=== PATIENT | female | born 1935 | race Caucasian/White ===

== ENCOUNTER 2017-10-05 14:10 | Inpatient (IN) | payer MEDICARE, OTHER ==
[~2017-10-05 14:10] MED LIST: Dexamethasone 20 MG/5 ML VIAL ONE; Glycopyrrolate 0.2 MG/ML 5 ML SYRINGE ONE; Lidocaine 1% PF 5 ML VIAL ONE; Ondansetron HCl/PF 4 MG/2 ML Vial ONE; PHENYLEPHRINE-NS 100 MCG/ML 10 ML SYRINGE ONE; PROPOFOL 200 MG/20 ML VIAL ONE; ePHEDrine/0.9% NaCl/PF SYRINGE 50 mg/10 ml ONE
[2017-10-05] MEDS ORDERED: Clindamycin/D5W 600 mg/50 ml Premix Bag ONE ×2 (15:53→16:51)
[2017-10-05] MEDS ORDERED: Ondansetron ODT 4 MG TAB ONE (15:54)
[2017-10-05 16:22] LABS: Hemoglobin 12.8 g/dL (12.0-16.0); Mean Corpuscular Volume 84.6 fl (81.0-99.0); RBC Distribution Width 12.4 % (11.5-14.5); Red Blood Cell (RBC) Count 4.73 mill/uL (4.20-5.40); White Blood Cell (WBC) Count 16.4 thou/uL (4.8-10.8)
[2017-10-05 16:23] LABS: Mean Platelet Volume 10.3 fL (7.4-10.4); Platelet Count 85 thou/uL (130-400)
[2017-10-05 16:37] LABS: #Eosinphils 0.1 thou/uL (0.0-0.7); #Monocytes 1.5 thou/uL (0.11-0.59); #Neutrophils 13.1 thou/uL (1.40-6.50); %Basophils 0.3 % (0.0-1.0); %Eosinophils 0.4 % (0.0-10.0); %Lymphocytes 6.4 % (21.0-51.0); %Monocytes 9.7 % (0.0-10.0); %Neutrophils 83.3 % (42.0-75.0); ALT (SGPT) 30 U/L (8-55); AST (SGOT) 36 U/L (5-34); Albumin 3.8 g/dL (3.4-4.8); Alkaline Phosphatase 116 U/L (40-150); Anion Gap 17 mmol/L (10-20); BUN (Urea Nitrogen) Less than 4 mg/dL (9.8-20.1); Bilirubin, Total 1.1 mg/dL (0.2-1.2); Calc. Creatinine Clearance 0 mL/min (70-130); Calcium 8.9 mg/dL (7.8-10.44); Carbon Dioxide 17 mmol/L (23-31); Chloride 98 mmol/L (98-107); Estimated GFR-MDRD Greater than 90; Globulin 3.7 g/dL (2.4-3.5); Glucose 83 mg/dL (83-110); Potassium 3.8 mmol/L (3.5-5.1); Protein, Total 7.5 g/dL (6.0-8.3); Sodium 128 mmol/L (136-145)
[2017-10-05 16:41] LABS: Large Platelets SLIGHT; PLT Morphology Comment Appears Decreased; RBC Morphology Normal
[2017-10-05 16:51] LABS: MDiff Complete? YES
[2017-10-05] MEDS ORDERED: Hydrocortisone 1% Cream 30 GM TUBE ONE (17:17)
[2017-10-05] MEDS ORDERED: Chlorhexidine Gluconate 15 ML UDCUP SSP ONE (17:17)
[2017-10-05] MEDS ORDERED: Lidocaine 1% w/Epinephrine 1:100K 30 ML VIAL ONE (17:17)
[2017-10-05] MEDS ORDERED: Lidocaine 2% w/Epinephrine 1:200K 20 ML VIAL ONE (17:17)
[2017-10-05] MEDS ORDERED: Fentanyl 100 MCG/2 ML VIAL ONE (17:53)
[2017-10-05] MEDS ORDERED: Sodium Chloride 0.9% 10 ML ONE (18:17)
[2017-10-05] MEDS ORDERED: Meperidine HCl/PF 25 MG/ML VIAL SLOW IVP PRN (19:37)
[2017-10-05] MEDS ORDERED: Promethazine HCl 25 MG/ML VIAL SLOW IVP PRN (19:37)
[2017-10-05] MEDS ORDERED: Promethazine HCl 25 MG/ML VIAL IM PRN (19:37)
[2017-10-05] MEDS ORDERED: Ondansetron HCl/PF 4 MG/2 ML Vial IVP PRN (19:37)
[2017-10-05] MEDS ORDERED: Promethazine HCl 25 MG/ML VIAL ONE (19:49)
[2017-10-05] MEDS ORDERED: Labetalol HCl 100 MG/20 ML VIAL SLOW IVP PRN (20:12)
[2017-10-05] MEDS ORDERED: Acetaminophen 650 MG in Premix Bag 1 BAG IVPB PRN (21:05)
[2017-10-05] MEDS: Docusate 100 MG CAP PO SCH (21:10)
--- NOTE | 2017-10-05 21:18 | PDOC.EVN ---
Event Note - Event Note Event Note: pt seen and examined. She is unable to give me a hx due to pain post op. Family not at bedside. Physical exam done.
[2017-10-05] MEDS: Chlorhexidine Gluconate 15 ML UDCUP SSP SCH (21:46)
[2017-10-05] MEDS ORDERED: Dexamethasone 4 mg/ml Vial SLOW IVP SCH (22:00)
[2017-10-05 23:10] VITALS: BMI 23.8
[2017-10-05] MEDS: Clindamycin/D5W 600 MG in Premix Bag 1 BAG IVPB SCH (23:16)
[2017-10-05] MEDS ORDERED: Clindamycin/D5W 600 MG in Premix Bag 1 BAG IVPB SCH (23:59)
[2017-10-06] MEDS ORDERED: TACROLIMUS EA EYE SCH (00:15)
[2017-10-06] MEDS ORDERED: COSOPT EA EYE SCH (00:15)
[2017-10-06] MEDS ORDERED: AUTOLOGOUS SERUM EA EYE SCH (00:15)
[2017-10-06] MEDS ORDERED: DEXAMETHASONE 0.1% EA EYE SCH (00:15)
[2017-10-06] MEDS: Dexamethasone 4 mg/ml Vial SLOW IVP SCH ×3 (02:10→17:50)
[2017-10-06] MEDS: Clindamycin/D5W 600 MG in Premix Bag 1 BAG IVPB SCH ×4 (05:09→23:05)
[2017-10-06] MEDS: Levothyroxine Sodium 25 MCG TAB PO SCH (05:10)
[2017-10-06 05:30] LABS: Anion Gap 15 mmol/L (10-20); BUN (Urea Nitrogen) 4 mg/dL (9.8-20.1); Calc. Creatinine Clearance 72 mL/min (70-130); Calcium 8.4 mg/dL (7.8-10.44); Carbon Dioxide 17 mmol/L (23-31); Chloride 100 mmol/L (98-107); Estimated GFR-MDRD Greater than 90; Glucose 142 mg/dL (83-110); Potassium 3.1 mmol/L (3.5-5.1); Sodium 129 mmol/L (136-145)
[2017-10-06 05:51] LABS: #Lymphocytes 0.7 thou/uL (1.20-3.40); #Monocytes 0.3 thou/uL (0.11-0.59); #Neutrophils 16.2 thou/uL (1.40-6.50); %Monocytes 1.9 % (0.0-10.0); Hemoglobin 12.9 g/dL (12.0-16.0); Mean Corpuscular HGB CONC 33.6 g/dL (32.0-36.0); Mean Corpuscular Hemoglobin 27.8 pg (27.0-31.0); Mean Corpuscular Volume 82.8 fl (81.0-99.0); Mean Platelet Volume 10.4 fL (7.4-10.4); Platelet Count 135 thou/uL (130-400); RBC Distribution Width 12.4 % (11.5-14.5); Red Blood Cell (RBC) Count 4.65 mill/uL (4.20-5.40); White Blood Cell (WBC) Count 17.2 thou/uL (4.8-10.8)
[2017-10-06] MEDS: Magnesium Oxide 250 MG TAB PO SCH (09:10)
[2017-10-06] MEDS: Docusate 100 MG CAP PO SCH ×2 (09:10→20:56)
[2017-10-06] MEDS: Chlorhexidine Gluconate 15 ML UDCUP SSP SCH ×2 (09:12→20:55)
[2017-10-06] MEDS: COSOPT EA EYE SCH ×2 (09:13→20:57)
[2017-10-06] MEDS: TACROLIMUS EA EYE SCH ×4 (09:13→20:57)
[2017-10-06] MEDS: AUTOLOGOUS SERUM EA EYE SCH ×4 (09:13→23:04)
[2017-10-06] MEDS: DEXAMETHASONE 0.1% EA EYE SCH (09:13)
[2017-10-06] MEDS: Bupropion 150 MG XL TAB PO SCH (13:06)
[2017-10-06] MEDS: Amitriptyline HCl 25 MG TAB PO SCH (20:56)
[2017-10-06] MEDS: Simvastatin 20 MG TAB PO SCH (20:56)
[2017-10-06] MEDS: Zolpidem Tartrate 5 MG TAB PO SCH (23:04)
[2017-10-07] MEDS: Levothyroxine Sodium 25 MCG TAB PO SCH (05:48)
[2017-10-07] MEDS: Clindamycin/D5W 600 MG in Premix Bag 1 BAG IVPB SCH ×4 (05:49→23:15)
[2017-10-07] MEDS: Docusate 100 MG CAP PO SCH ×2 (08:28→20:24)
[2017-10-07] MEDS: TACROLIMUS EA EYE SCH ×4 (08:29→20:24)
[2017-10-07] MEDS: DEXAMETHASONE 0.1% EA EYE SCH (08:32)
[2017-10-07] MEDS: COSOPT EA EYE SCH ×2 (08:33→20:24)
[2017-10-07] MEDS: Acetaminophen 325 MG TAB PO PRN ×3 (08:36→23:20)
[2017-10-07] MEDS: Magnesium Oxide 250 MG TAB PO SCH (08:36)
[2017-10-07] MEDS: AUTOLOGOUS SERUM EA EYE SCH ×3 (08:56→23:14)
--- NOTE | 2017-10-07 10:10 | PDOC.PN ---
- Subjective Encounter Start Date: 10/06/17 Encounter Start Time: 11:30 Subjective: pt up in bed. was in the bathroom and had a fall - Objective Resuscitation Status: Resuscitation Status FULL:Full Resuscitation Vital Signs & Weight: Vital Signs (12 hours) Temp Pulse Resp BP Pulse Ox 10/07/17 08:02 97.8 F 64 16 148/70 H 96 10/07/17 08:00 97.8 F 64 16 96 Weight Weight 130 lb I&O: 10/06/17 10/07/17 10/08/17 06:59 06:59 06:59 Intake Total 300 1473 Balance 300 1473 Result Diagrams: 10/06/17 04:12 10/06/17 04:12 Phys Exam - Physical Examination pt not able to open her mouth Neck: no nodes, no JVD, supple, full ROM Respiratory: no wheezing, no rales, no rhonchi, wheezing present, clear to auscultation bilateral Cardiovascular: RRR, no significant murmur, no rub, gallop, irregular Gastrointestinal: soft, non-tender, no distention, positive bowel sounds Dx/Plan (1) Submandibular abscess Code(s): K12.2 - CELLULITIS AND ABSCESS OF MOUTH Status: Acute (2) Hypothyroid Code(s): E03.9 - HYPOTHYROIDISM, UNSPECIFIED Status: Acute (3) HTN (hypertension) Code(s): I10 - ESSENTIAL (PRIMARY) HYPERTENSION Status: Acute - Plan * . plan: will continue abx for now. will change to oral when pt goes home. pt lost her balance and fell. vital signs stable. Review of Systems - Review of Systems ENT: negative: Ear Pain, Ear Discharge, Nose Pain, Nose Discharge, Nose Congestion, Mouth Pain, Mouth Swelling, Throat Pain, Throat Swelling, Other Respiratory: negative: Cough, Dry, Shortness of Breath, Hemoptysis, SOB with Excertion, Pleuritic Pain, Sputum, Wheezing Cardiovascular: negative: chest pain, palpitations, orthopnea, paroxysmal nocturnal dyspnea, edema, light headedness, other Gastrointestinal: negative: Nausea, Vomiting, Abdominal Pain, Diarrhea, Constipation, Melena, Hematochezia, Other Genitourinary: negative: Dysuria, Frequency, Incontinence, Hematuria, Retention , Other - Medications/Allergies Allergies/Adverse Reactions: Allergies Allergy/AdvReac Type Severity Reaction Status Date / Time Penicillins Allergy Verified 10/05/17 20:12 Medications: Current Medications Acetaminophen (Tylenol) 650 mg PO Q4H PRN PRN Reason: Headache/Fever or Pain Last Admin: 10/07/17 14:01 Dose: 650 mg Amitriptyline HCl (Elavil) 25 mg PO QPM [facility] Last Admin: 10/06/17 20:56 Dose: 25 mg Aspirin (Aspirin Chewable) 81 mg PO DAILY [facility] Last Admin: 10/07/17 08:28 Dose: 81 mg Bupropion HCl (Wellbutrin Xl) 150 mg PO 1200 [facility] Last Admin: 10/07/17 11:52 Dose: 150 mg Chlorhexidine Gluconate (Chlorhexidine Gluconate) 15 ml SSP BID [facility] Last Admin: 10/07/17 11:52 Dose: 15 ml Docusate Sodium (Colace) 100 mg PO BID [facility] Last Admin: 10/07/17 08:28 Dose: 100 mg Clindamycin Phosphate/Dextrose (600 mg/ Device) 50 mls @ 100 mls/hr IVPB 0500, 1100,1700,2300 [facility] Last Admin: 10/07/17 16:43 Dose: 50 mls Labetalol HCl (Normodyne) 5 mg SLOW IVP Q4H PRN PRN Reason: SBP Greater Than 180 Levothyroxine Sodium (Synthroid) 25 mcg PO 0600 [facility] Last Admin: 10/07/17 05:48 Dose: 25 mcg Magnesium Oxide (Magnesium Oxide) 250 mg PO DAILY [facility] Last Admin: 10/07/17 08:36 Dose: 250 mg Pantoprazole Sodium (Protonix) 40 mg PO QAM [facility] Last Admin: 10/07/17 08:28 Dose: 40 mg Tacrolimus-Pf Aqueous Ophthalmic 0 .02% Susp 0 each EA EYE QID [facility] Last Admin: 10/07/17 16:43 Dose: 1 each Dexamethasone Pf (Ophthalmic 0.1%) 0 each EA EYE DAILY [facility] Last Admin: 10/07/17 08:32 Dose: 1 each Cosopt Pf ( Dorzlamide Hcl- Timolol Maleate 2%-0 .5%) 0 each EA EYE BID [facility] Last Admin: 10/07/17 08:33 Dose: 1 each Autologous Serum Drops 50% Ophthalmic Soln 0 each EA EYE TID [facility] Last Admin: 10/07/17 14:02 Dose: 1 each Simvastatin (Zocor) 20 mg PO QPM [facility] Last Admin: 10/06/17 20:56 Dose: 20 mg Sodium Chloride (Flush - Normal Saline) 10 ml IVF Q12HR [facility] Last Admin: 10/07/17 08:32 Dose: 10 ml Sodium Chloride (Flush - Normal Saline) 10 ml IVF PRN PRN PRN Reason: Saline Flush Tramadol HCl (Ultram) 50 mg PO Q6H PRN PRN Reason: Moderate to Severe Pain (6-10) Last Admin: 10/07/17 16:43 Dose: 50 mg Zolpidem Tartrate (Ambien) 5 mg PO HS [facility] Last Admin: 10/06/17 23:04 Dose: 5 mg
[2017-10-07] MEDS: Chlorhexidine Gluconate 15 ML UDCUP SSP SCH ×2 (11:52→20:24)
[2017-10-07] MEDS: Bupropion 150 MG XL TAB PO SCH (11:52)
[2017-10-07] MEDS ORDERED: traMADol HCl 50 MG TAB PO PRN (14:44)
--- NOTE | 2017-10-07 19:02 | PDOC.PN ---
- Subjective Encounter Start Date: 10/07/17 Encounter Start Time: 11:30 Subjective: pt up in bed no complains - Objective Resuscitation Status: Resuscitation Status FULL:Full Resuscitation Vital Signs & Weight: Vital Signs (12 hours) Temp Pulse Resp BP Pulse Ox 10/07/17 16:41 97.3 F L 73 16 117/69 96 10/07/17 12:24 97.7 F 66 16 134/78 96 10/07/17 08:02 97.8 F 64 16 148/70 H 96 10/07/17 08:00 97.8 F 64 16 96 Weight Weight 130 lb I&O: 10/06/17 10/07/17 10/08/17 06:59 06:59 06:59 Intake Total 300 1473 460 Balance 300 1473 460 Result Diagrams: 10/06/17 04:12 10/06/17 04:12 Phys Exam - Physical Examination HEENT: PERRLA, moist MMs, sclera anicteric, TM's clear, oral pharynx no lesions , 2+ tonsils Neck: no nodes, no JVD, supple, full ROM Respiratory: no wheezing, no rales, no rhonchi, wheezing present, clear to auscultation bilateral Cardiovascular: RRR, no significant murmur, no rub, gallop, irregular Gastrointestinal: soft, non-tender, no distention, positive bowel sounds Dx/Plan (1) Submandibular abscess Code(s): K12.2 - CELLULITIS AND ABSCESS OF MOUTH Status: Acute (2) Hypothyroid Code(s): E03.9 - HYPOTHYROIDISM, UNSPECIFIED Status: Acute (3) HTN (hypertension) Code(s): I10 - ESSENTIAL (PRIMARY) HYPERTENSION Status: Acute - Plan * . pt up in bed feels well pt eating and tolerating po well continue iv abx Review of Systems - Review of Systems ENT: negative: Ear Pain, Ear Discharge, Nose Pain, Nose Discharge, Nose Congestion, Mouth Pain, Mouth Swelling, Throat Pain, Throat Swelling, Other Respiratory: negative: Cough, Dry, Shortness of Breath, Hemoptysis, SOB with Excertion, Pleuritic Pain, Sputum, Wheezing Cardiovascular: negative: chest pain, palpitations, orthopnea, paroxysmal nocturnal dyspnea, edema, light headedness, other Gastrointestinal: negative: Nausea, Vomiting, Abdominal Pain, Diarrhea, Constipation, Melena, Hematochezia, Other - Medications/Allergies Allergies/Adverse Reactions: Allergies Allergy/AdvReac Type Severity Reaction Status Date / Time Penicillins Allergy Verified 10/05/17 20:12 Medications: Current Medications Acetaminophen (Tylenol) 650 mg PO Q4H PRN PRN Reason: Headache/Fever or Pain Last Admin: 10/07/17 14:01 Dose: 650 mg Amitriptyline HCl (Elavil) 25 mg PO QPM [facility] Last Admin: 10/06/17 20:56 Dose: 25 mg Aspirin (Aspirin Chewable) 81 mg PO DAILY [facility] Last Admin: 10/07/17 08:28 Dose: 81 mg Bupropion HCl (Wellbutrin Xl) 150 mg PO 1200 [facility] Last Admin: 10/07/17 11:52 Dose: 150 mg Chlorhexidine Gluconate (Chlorhexidine Gluconate) 15 ml SSP BID [facility] Last Admin: 10/07/17 11:52 Dose: 15 ml Docusate Sodium (Colace) 100 mg PO BID [facility] Last Admin: 10/07/17 08:28 Dose: 100 mg Clindamycin Phosphate/Dextrose (600 mg/ Device) 50 mls @ 100 mls/hr IVPB 0500, 1100,1700,2300 [facility] Last Admin: 10/07/17 16:43 Dose: 50 mls Labetalol HCl (Normodyne) 5 mg SLOW IVP Q4H PRN PRN Reason: SBP Greater Than 180 Levothyroxine Sodium (Synthroid) 25 mcg PO 0600 [facility] Last Admin: 10/07/17 05:48 Dose: 25 mcg Magnesium Oxide (Magnesium Oxide) 250 mg PO DAILY [facility] Last Admin: 10/07/17 08:36 Dose: 250 mg Pantoprazole Sodium (Protonix) 40 mg PO QAM [facility] Last Admin: 10/07/17 08:28 Dose: 40 mg Tacrolimus-Pf Aqueous Ophthalmic 0 .02% Susp 0 each EA EYE QID [facility] Last Admin: 10/07/17 16:43 Dose: 1 each Dexamethasone Pf (Ophthalmic 0.1%) 0 each EA EYE DAILY [facility] Last Admin: 10/07/17 08:32 Dose: 1 each Cosopt Pf ( Dorzlamide Hcl- Timolol Maleate 2%-0 .5%) 0 each EA EYE BID [facility] Last Admin: 10/07/17 08:33 Dose: 1 each Autologous Serum Drops 50% Ophthalmic Soln 0 each EA EYE TID [facility] Last Admin: 10/07/17 14:02 Dose: 1 each Simvastatin (Zocor) 20 mg PO QPM [facility] Last Admin: 10/06/17 20:56 Dose: 20 mg Sodium Chloride (Flush - Normal Saline) 10 ml IVF Q12HR [facility] Last Admin: 10/07/17 08:32 Dose: 10 ml Sodium Chloride (Flush - Normal Saline) 10 ml IVF PRN PRN PRN Reason: Saline Flush Tramadol HCl (Ultram) 50 mg PO Q6H PRN PRN Reason: Moderate to Severe Pain (6-10) Last Admin: 10/07/17 16:43 Dose: 50 mg Zolpidem Tartrate (Ambien) 5 mg PO HS [facility] Last Admin: 10/06/17 23:04 Dose: 5 mg
[2017-10-07] MEDS: Amitriptyline HCl 25 MG TAB PO SCH (20:23)
[2017-10-07] MEDS: Simvastatin 20 MG TAB PO SCH (20:24)
[2017-10-07] MEDS: traMADol HCl 50 MG TAB PO PRN (21:45)
[2017-10-07] MEDS ORDERED: Ketorolac Tromethamine 10 MG TAB PO SCH (21:45)
[2017-10-07] MEDS: Zolpidem Tartrate 5 MG TAB PO SCH (23:18)
[2017-10-08] MEDS: traMADol HCl 50 MG TAB PO PRN ×4 (02:13→22:07)
[2017-10-08] MEDS: Levothyroxine Sodium 25 MCG TAB PO SCH (05:24)
[2017-10-08] MEDS: Clindamycin/D5W 600 MG in Premix Bag 1 BAG IVPB SCH ×4 (05:25→23:05)
[2017-10-08] MEDS: AUTOLOGOUS SERUM EA EYE SCH ×3 (08:06→23:04)
[2017-10-08] MEDS: DEXAMETHASONE 0.1% EA EYE SCH (08:07)
[2017-10-08] MEDS: COSOPT EA EYE SCH ×2 (08:07→21:29)
[2017-10-08] MEDS: TACROLIMUS EA EYE SCH ×4 (08:07→21:29)
[2017-10-08] MEDS: Docusate 100 MG CAP PO SCH ×2 (08:08→22:07)
[2017-10-08] MEDS: Magnesium Oxide 250 MG TAB PO SCH (08:08)
[2017-10-08] MEDS: Chlorhexidine Gluconate 15 ML UDCUP SSP SCH ×2 (08:08→22:08)
[2017-10-08] MEDS: Acetaminophen 325 MG TAB PO PRN (11:12)
[2017-10-08] MEDS ORDERED: Ketorolac Tromethamine 30 MG/ML VIAL IVP SCH (12:15)
[2017-10-08 12:25] LABS: #Eosinphils 0.2 thou/uL (0.0-0.7); #Lymphocytes 1.6 thou/uL (1.20-3.40); #Neutrophils 7.7 thou/uL (1.40-6.50); %Basophils 0.4 % (0.0-1.0); %Lymphocytes 14.9 % (21.0-51.0); %Monocytes 9.3 % (0.0-10.0); %Neutrophils 73.4 % (42.0-75.0); Hemoglobin 13.5 g/dL (12.0-16.0); Mean Corpuscular HGB CONC 32.9 g/dL (32.0-36.0); Mean Corpuscular Hemoglobin 27.3 pg (27.0-31.0); Mean Platelet Volume 10.2 fL (7.4-10.4); Platelet Count 182 thou/uL (130-400); RBC Distribution Width 12.6 % (11.5-14.5); Red Blood Cell (RBC) Count 4.93 mill/uL (4.20-5.40); White Blood Cell (WBC) Count 10.4 thou/uL (4.8-10.8)
[2017-10-08] MEDS: Bupropion 150 MG XL TAB PO SCH (12:29)
[2017-10-08 12:44] LABS: Anion Gap 13 mmol/L (10-20); BUN (Urea Nitrogen) 8 mg/dL (9.8-20.1); Calc. Creatinine Clearance 68 mL/min (70-130); Calcium 8.2 mg/dL (7.8-10.44); Carbon Dioxide 22 mmol/L (23-31); Chloride 98 mmol/L (98-107); Estimated GFR-MDRD Greater than 90; Glucose 87 mg/dL (83-110); Potassium 3.1 mmol/L (3.5-5.1); Sodium 130 mmol/L (136-145)
[2017-10-08] MEDS: Ketorolac Tromethamine 30 MG/ML VIAL IVP SCH ×2 (17:53→23:04)
[2017-10-08] MEDS: Potassium Chloride 20 MEQ TAB PO SCH (17:55)
--- NOTE | 2017-10-08 20:06 | PDOC.PN ---
- Subjective Encounter Start Date: 10/08/17 Encounter Start Time: 11:30 Subjective: pt up in bed complains of pain to her left jaw - Objective Resuscitation Status: Resuscitation Status FULL:Full Resuscitation Vital Signs & Weight: Weight Weight 130 lb I&O: 10/07/1718 10/09/17 06:59 06:59 06:59 Intake Total 1473 1131 430 Balance 1473 1131 430 Result Diagrams: 10/08/17 12:17 10/08/17 12:17 Phys Exam - Physical Examination dressing intact Neck: no nodes, no JVD, supple, full ROM Respiratory: no wheezing, no rales, no rhonchi, wheezing present, clear to auscultation bilateral Cardiovascular: RRR, no significant murmur, no rub, gallop, irregular Gastrointestinal: soft, non-tender, no distention, positive bowel sounds Musculoskeletal: no edema, pulses present, edema present Dx/Plan (1) Submandibular abscess Code(s): K12.2 - CELLULITIS AND ABSCESS OF MOUTH Status: Acute (2) Hypothyroid Code(s): E03.9 - HYPOTHYROIDISM, UNSPECIFIED Status: Acute (3) HTN (hypertension) Code(s): I10 - ESSENTIAL (PRIMARY) HYPERTENSION Status: Acute (4) Hypokalemia Code(s): E87.6 - HYPOKALEMIA Status: Acute - Plan * will change abx to po * possible discharge in am if ok with surgeon * will replace K Review of Systems - Review of Systems ENT: Mouth Pain Respiratory: negative: Cough, Dry, Shortness of Breath, Hemoptysis, SOB with Excertion, Pleuritic Pain, Sputum, Wheezing Cardiovascular: negative: chest pain, palpitations, orthopnea, paroxysmal nocturnal dyspnea, edema, light headedness, other Gastrointestinal: negative: Nausea, Vomiting, Abdominal Pain, Diarrhea, Constipation, Melena, Hematochezia, Other - Medications/Allergies Allergies/Adverse Reactions: Allergies Allergy/AdvReac Type Severity Reaction Status Date / Time Penicillins Allergy Verified 10/05/17 20:12 Medications: Current Medications Acetaminophen (Tylenol) 650 mg PO Q4H PRN PRN Reason: Headache/Fever or Pain Last Admin: 10/08/17 11:12 Dose: 650 mg Amitriptyline HCl (Elavil) 25 mg PO QPM [facility] Last Admin: 10/07/17 20:23 Dose: 25 mg Aspirin (Aspirin Chewable) 81 mg PO DAILY [facility] Last Admin: 10/08/17 08:08 Dose: 81 mg Bupropion HCl (Wellbutrin Xl) 150 mg PO 1200 [facility] Last Admin: 10/08/17 12:29 Dose: 150 mg Chlorhexidine Gluconate (Chlorhexidine Gluconate) 15 ml SSP BID [facility] Last Admin: 10/08/17 08:08 Dose: 15 ml Docusate Sodium (Colace) 100 mg PO BID [facility] Last Admin: 10/08/17 08:08 Dose: 100 mg Clindamycin Phosphate/Dextrose (600 mg/ Device) 50 mls @ 100 mls/hr IVPB 0500, 1100,1700,2300 [facility] Last Admin: 10/08/17 17:55 Dose: 50 mls Ketorolac Tromethamine (Toradol) 15 mg IVP Q6HR [facility] Stop: 10/13/17 18:01 Last Admin: 10/08/17 17:53 Dose: 15 mg Labetalol HCl (Normodyne) 5 mg SLOW IVP Q4H PRN PRN Reason: SBP Greater Than 180 Levothyroxine Sodium (Synthroid) 25 mcg PO 0600 [facility] Last Admin: 10/08/17 05:24 Dose: 25 mcg Magnesium Oxide (Magnesium Oxide) 250 mg PO DAILY [facility] Last Admin: 10/08/17 08:08 Dose: 250 mg Pantoprazole Sodium (Protonix) 40 mg PO QAM [facility] Last Admin: 10/08/17 08:08 Dose: 40 mg Tacrolimus-Pf Aqueous Ophthalmic 0 .02% Susp 0 each EA EYE QID [facility] Last Admin: 10/08/17 17:54 Dose: 1 each Dexamethasone Pf (Ophthalmic 0.1%) 0 each EA EYE DAILY [facility] Last Admin: 10/08/17 08:07 Dose: 1 each Cosopt Pf ( Dorzlamide Hcl- Timolol Maleate 2%-0 .5%) 0 each EA EYE BID [facility] Last Admin: 10/08/17 08:07 Dose: 1 each Autologous Serum Drops 50% Ophthalmic Soln 0 each EA EYE TID [facility] Last Admin: 10/08/17 16:16 Dose: 1 each Potassium Chloride (K-Dur) 40 meq PO BID-WM [facility] Last Admin: 10/08/17 17:55 Dose: 40 meq Simvastatin (Zocor) 20 mg PO QPM [facility] Last Admin: 10/07/17 20:24 Dose: 20 mg Sodium Chloride (Flush - Normal Saline) 10 ml IVF Q12HR [facility] Last Admin: 10/08/17 08:08 Dose: 10 ml Sodium Chloride (Flush - Normal Saline) 10 ml IVF PRN PRN PRN Reason: Saline Flush Tramadol HCl (Ultram) 50 mg PO Q4H PRN PRN Reason: Moderate to Severe Pain (6-10) Last Admin: 10/08/17 11:58 Dose: 50 mg Zolpidem Tartrate (Ambien) 5 mg PO HS [facility] Last Admin: 10/07/17 23:18 Dose: 5 mg
[2017-10-08] MEDS ORDERED: Ondansetron HCl/PF 4 MG/2 ML Vial IVP PRN (20:34)
--- NOTE | 2017-10-08 20:37 | PDOC.EVN ---
Event Note - Event Note Event Note: Called by RN for patient with n/v and no bm for a few days despite colace bid and a dose of lactulose. RN reports pt has taken zofran in the past for n/v - will order this. Will hold on other meds for constipation now - pt is requesting a suppository - wait until n/v controlled. No further needs at end of call.
[2017-10-08] MEDS ORDERED: Clindamycin 150 MG CAP PO SCH (21:00)
[2017-10-08] MEDS ORDERED: Clindamycin/D5W 600 MG in Premix Bag 1 BAG IVPB SCH (22:00)
[2017-10-08] MEDS: Amitriptyline HCl 25 MG TAB PO SCH (22:08)
[2017-10-08] MEDS: Simvastatin 20 MG TAB PO SCH (22:08)
--- NOTE | 2017-10-08 22:35 | HP ---
DATE OF ADMISSION: 10/05/2017 CHIEF COMPLAINT: Left mandible swelling. HISTORY OF PRESENT ILLNESS: The patient is a very pleasant 81-year-old female with a past medical hi story of hyperlipidemia, high cholesterol who presented to the hospital with complaints of left subma ndibular pain. The patient stated that she noticed that 3 days prior to her admission some pain and swelling around her left lower mouth. She stated that she did go to her ENT who stated that to follo w up as an outpatient to be for her to be removed. However, the patient stated that the day of her a dmission, her swelling got severe to the point that she had significant pain and also had fever and w hen she called her surgeon who recommended to come into the ER for further evaluation. The patient a lso has some difficulty swallowing. The patient was taken to surgery and had an I&D and also removal of the left lower tooth. PAST MEDICAL HISTORY: History of hyperlipidemia, hypertension and hypothyroidism. PAST SURGICAL HISTORY: She has no surgical history. SOCIAL HISTORY: She denies any alcohol, drug use or smoking history. REVIEW OF SYSTEMS: Except for the pain in her left lower jaw line, she denies any other review of an y other issues. ALLERGIES: PENICILLIN. CURRENT MEDICATIONS: She takes amitriptyline 25 mg daily, aspirin 81 mg daily, fluticasone 50 mcg na diana, levothyroxine 25 mcg daily, magnesium 250 mg daily, simvastatin 20 mg daily, Ambien 10 mg daily, and Nexium 20 mg daily. PHYSICAL EXAMINATION: VITAL SIGNS: Pulse of 99, temperature of 98.7, 18, 100% on room air, 114/84. GENERAL: She is awake, alert, oriented x3. She is in apparent distress. She does have significant swelling of her left jawline and also is not able to open her mouth completely. She is post-surgical . CARDIOVASCULAR SYSTEM: S1, S2 present. No murmurs, rubs or gallops. LUNGS: Clear to auscultation, rhonchi or wheezes noted. ABDOMEN: Soft, nontender. Bowel sounds are present x2. Hepatomegaly or splenomegaly noted. EXTREMITIES: Lower extremity, no edema. Pedal pulses present x2. SKIN: Intact. No cuts, bruises noted. NEUROLOGIC: No focal neurological abnormalities noted. LABORATORY DATA: Are the following: WBCs of 16.4, hemoglobin of 12.8, hematocrit of 40.0, platelets of 85. Chemistry: Sodium 128, potassium 3.8, BUN of 4, creatinine 0.56. ASSESSMENT AND PLAN: The patient is a very pleasant 81-year-old female who presents to the hospital with complaints of worsening left mandibular pain. 1. Left mandibular most likely an abscess. Patient undergoing I&D by Surgery. We will start the pa tient on some antibiotics and will await cultures. 2. Hypertension. We will continue patient's home medications. 3. Hypothyroidism. We will continue the patient's home medication. 4. Leukocytosis, most likely secondary to her underlying infection. 5. Hyponatremia. This is most likely secondary either possibly due to pain or maybe to underlying d epression medication. 6. Deep venous thrombosis prophylaxis. We will put the patient on subcu heparin versus Lovenox.
[2017-10-08] MEDS: Zolpidem Tartrate 5 MG TAB PO SCH (23:04)
[2017-10-09] MEDS: Levothyroxine Sodium 25 MCG TAB PO SCH (05:39)
[2017-10-09] MEDS: Ketorolac Tromethamine 30 MG/ML VIAL IVP SCH ×2 (05:39→12:43)
[2017-10-09] MEDS: Clindamycin/D5W 600 MG in Premix Bag 1 BAG IVPB SCH ×2 (05:40→12:44)
[2017-10-09] MEDS: traMADol HCl 50 MG TAB PO PRN ×2 (05:41→13:14)
--- NOTE | 2017-10-09 08:11 | PQF ---
CLINICAL DOCUMENTATION IMPROVEMENT CLARIFICATION FORM: ICD-10 Updated PLEASE DO AN ADDENDUM TO THE PROGRESS NOTE WITH ANY DOCUMENTATION UPDATES OR ADDITIONS AND CARRY THROUGH TO DC SUMMARY. THANK YOU. DATE: 10/09 ATTN: DR. Blank GRIFFITH Please exercise your independent, professional judgment in responding to the clarification form. Clinical indicators are provided on the bottom of this form for your review. Please check appropriate box(es): [ ] Sepsis due to: (Pna, UTI, gangrenous gall bladder, etc.) [ x ] Localized infection without sepsis [ ] Other diagnosis [ ] Unable to determine For continuity of documentation, please document condition throughout progress notes and discharge summary. Thank You. CLINICAL INDICATORS - SIGNS / SYMPTOMS / LABS ER PRESENTATION 10/05: WBC: 16.4 RR: 24 HR: 108 TEMP ON ADMIT: 100.2 RISK FACTOR: L SUBMANDIBULAR ABSCESS REQUIRING I&D TREATMENTS: IV ANTIBIOTIC (CLINDAMYCIN 10/05 - PRESENT) I&D (10/05) THANK YOU! Christi (This form is maintained as a part of the permanent medical record) 2014 [employer]. All Rights Reserved Christi Agustin RN, BSN [email or web address] Office: [phone] [facility]
[2017-10-09] MEDS: Potassium Chloride 20 MEQ TAB PO SCH (08:21)
[2017-10-09] MEDS: Docusate 100 MG CAP PO SCH (08:22)
[2017-10-09] MEDS: Magnesium Oxide 250 MG TAB PO SCH (08:22)
[2017-10-09] MEDS: Chlorhexidine Gluconate 15 ML UDCUP SSP SCH (08:22)
[2017-10-09] MEDS: AUTOLOGOUS SERUM EA EYE SCH (08:24)
[2017-10-09] MEDS: TACROLIMUS EA EYE SCH ×2 (08:24→12:49)
[2017-10-09] MEDS: DEXAMETHASONE 0.1% EA EYE SCH (08:25)
[2017-10-09] MEDS: COSOPT EA EYE SCH (08:25)
[2017-10-09 08:28] VITALS: BP 147/86; TEMP 97.5
[2017-10-09] MEDS: Acetaminophen 325 MG TAB PO PRN (08:36)
[2017-10-09] MEDS ORDERED: Saccharomyces boulardii 250 MG CAP PO SCH (09:00)
[2017-10-09] MEDS: Bupropion 150 MG XL TAB PO SCH (12:43)
--- NOTE | 2017-10-10 04:40 | DIS ---
DATE OF ADMISSION: 10/05/2017 DATE OF DISCHARGE: 10/09/2017 DISCHARGE DIAGNOSES: 1. Submandibular abscess, status post incision and drainage. 2. Hypothyroidism. 3. Hypertension. 4. Hypokalemia. HOSPITAL COURSE: Patient is a very pleasant 81-year-old female who presented to the hospital for sub mandibular abscess. She underwent an I&D by [facility]. Patient was put on clindamycin. Patient continue d to improve throughout the hospital stay. She was able to tolerate oral food. Her cultures indicat ed many Gram-positive cocci in pairs and chains and clusters. Patient was discharged home with clind amycin. She will follow up with her surgeon as an outpatient. PHYSICAL EXAMINATION: VITAL SIGNS: On discharge, her temperature was 97.5, 88 pulse, heart rate 18, 94% on room air, 147/8 6. GENERAL: She was awake, alert, oriented x3, does not appear in distress. CARDIOVASCULAR: S1, S2 present. No murmurs, rubs, or gallop. ABDOMEN: Soft, nontender. Bowel sounds are present x2. DISCHARGE MEDICATIONS: Chlorhexidine 15 mL b.i.d., clindamycin 300 q.6 hours, Colace 100 mg b.i.d., Zofran 4 mg q.6 hours p.r.n., Florastor 250 mg daily, tramadol 50 mg q.4 hours p.r.n., bupropion 150 mg daily, amitriptyline 25 mg q.p.m., aspirin 81 mg daily, magnesium 250 daily, simvastatin 20 mg q.p .m., Ambien 5 mg at bedtime, Nexium 1 tab q.a.m., levothyroxine 25 mcg daily. Patient will follow up with primary care doctor and with her surgeon.
--- NOTE | 2017-10-18 13:44 | OP ---
DATE OF PROCEDURE: 10/05/2017 PREOPERATIVE DIAGNOSES: 1. Left submandibular space abscess. 2. Necrotic tooth #18. POSTOPERATIVE DIAGNOSES: 1. Left submandibular space abscess secondary to infected tooth #18. 2. Necrotic tooth #18. PROCEDURES PERFORMED: 1. Transcervical and transoral incision and drainage of left submandibular space abscess. 2. Surgical removal of tooth #18. INDICATIONS: This is an 81-year-old female who was originally at an outside hospital with left neck swelling and fluid collection. We were consulted and requested patient needed to be [facility] or transferred to our office for evaluation. The patient was subsequently kept in the hospital for a couple of days prior to being discharged to our office. On evaluation in our offi ce, the patient was noted to have a significant left submandibular swelling and cellulitis with signi ficant discomfort. The decision was made to place the patient back in the hospital for a CT scan and surgical intervention of the left submandibular space abscess and associated tooth. The patient is brought to the operating room at this time for that treatment. SURGEON: Lj Sandoval DDS, M.D. DESCRIPTION OF OPERATION: The patient was identified in preoperative holding, and all questions were answered. The patient was then transferred to the operating room, transferred to the operating room table in supine position. The patient was then intubated via an oral intubation procedure by the An esthesia Service and a general anesthetic was induced. A surgical timeout was performed. The patien t's face and neck were prepped and draped in a sterile manner. The oral cavity was then prepped with Peridex oral rinse and a toothbrush. A throat pack was then pl aced. Attention was then turned intraorally and local anesthetic was delivered to the left mandible. Tooth #18 was then treated. Elevators and forceps were used with a subsequent fracture of the toot h. A 15 blade was then used to make an incision and a periosteal elevator was used to raise a full t hickness mucoperiosteal flap facially. The tooth was sectioned and ostectomy was performed around to [facility]. The roots were then elevated out individually. There was purulence obtained from the apical as pect of the socket of tooth #18 at this time. The socket was curetted clean and attention was then t urned towards drainage of the remaining aspects of the submandibular abscess. A lingual full thickne ss mucosal periosteal flap was developed intraorally from approximately tooth #21 region back to the tooth #18 region. This subperiosteal dissection continued inferiorly towards the inferior border of the mandible and as the submandibular space was encountered a large amount of purulence was obtained and a culture swab was taken of that purulence at this time. The submandibular space was opened up f urther and more purulence was obtained. At this time the wound was irrigated and packed off and atte ntion was turned towards the left neck. The inferior border of the mandible was marked and an area a pproximately 2-2.5 cm inferior to the mandible was marked for the proposed incision site. Local anes thetic was delivered to this area with a new needle and a 15 blade was then used to make approximatel y 2.5 cm skin incision in the left submandibular neck region. This incision was deepened using Bovie cautery and hemostasis was obtained. The platysma muscle was reached and this platysma was carefull y divided using a combination of blunt and sharp dissection. After the platysma was divided, Christina h emostats were used to begin a blunt dissection superiorly towards the inferior border of the mandible in the submandibular space. This dissection continued until the submandibular space and the inferio r border were reached and at this time entry into the abscess cavity was completed and further purule nce was obtained through this submandibular location. The hemostats were used along with finger diss ection to open up this passageway to the submandibular space through the cervical region. This disse ction continued from both intraoral and extraoral routes to ensure that the entire abscess cavity was decompressed and opened up. Small amount of dissection was continued out onto the buccal aspect of the mandible to ensure that there was no purulence underneath the masseter muscle region. After a co mplete opening of the abscess, the abscess was irrigated copiously with bacitracin infused saline and then a quarter inch Anil doubled over on itself was placed into the submandibular space both from the cervical incision and from the intraoral lingual incision. These drains were secured in place w ith a nylon drain stitch externally and a silk drain stitch intraorally. The remainder of the intrao ral wounds were closed loosely with 4-0 chromic gut suture in an interrupted fashion. All wounds wer e irrigated once more and the oral cavity was suctioned free of debris and the throat pack was remove d. An orogastric tube was placed, suctioned and removed and a Kerlix gauze pressure pack with an ext raoral tail was placed over the left posterior intraoral wounds and the patient was then turned over to the Anesthesia Service for emergence and extubation which ensued without complication. URINE OUTPUT: Not measured. INTRAVENOUS FLUIDS: Please see anesthetic record for full details. ESTIMATED BLOOD LOSS: Blood loss 15 mL. DRAINS: Quarter inch Anil to the left submandibular space through both the left neck and left int raoral wounds. IMPLANTS: None. COMPLICATIONS: None. FINDINGS: Large foul purulence from left submandibular space with immediate decompression of the lar ge left submandibular swelling on drainage of the abscess. SPECIMENS: Purulence from the left submandibular space. DISPOSITION: The patient tolerated the procedure well. She was transferred to the recovery room in good condition.
--- NOTE | 2017-10-21 13:00 | PRG ---
DATE OF SERVICE: 10/21/2017 at 11:00 a.m. SUBJECTIVE: No acute 24 hour events. The patient is postoperative day #1 status post repeat incisio n and drainage of left submandibular abscess, whereupon drainage a large amount of purulent fluid was drained in area and wound cleaned thoroughly. Two drains were placed yesterday by Dr. Sandoval. Th e patient's pain is well controlled. She is voiding, ambulating, tolerating p.o. No complaints of d ysphagia or difficulty breathing. OBJECTIVE: VITAL SIGNS: Patient's vital signs have been stable. She has been afebrile over the last 24 hours. HEENT: Her pupils are equal, round, and reactive to light and accommodation. Her oral opening is go od. Her swelling is slightly decreased since yesterday and soft, but still quite tender to palpation around the left submandibular area. There are two drains in the left submandibular area going throu gh and through to the oral cavity, oropharynx is clear. Floor of mouth is soft and supple. There is no uvular deviation. Her dressing is soaked with quite a bit of seropurulent fluid. LABORATORY DATA: Her white count is 10. There is no left shift. ASSESSMENT AND PLAN: Postoperative day #1 status post repeat drainage of left submandibular abscess. The patient appears to be improving. We will continue antibiotics per primary team. Previous cult ures grew out strep anginosus. We will continue to follow culture and sensitivities. The patient is okay for dental soft diet and would like a dressing changed 3 times a day. We will follow up in 24 hours for possible drain removal.
== END 2017-10-09 13:28 | disposition home or self-care (01) | DRG 137 ==
LOC: ERS 14:10 → T4-B 16:28 → ERS 17:23
PROVIDERS: ADMIT Internal Medicine; ATTEND Internal Medicine
PROC: 0W950ZZ Drainage of Lower Jaw, Open Approach (ICD-10-PCS; principal; 2017-10-05)
PROC: 0W930ZZ Drainage of Oral Cavity and Throat, Open Approach (ICD-10-PCS; 2017-10-05)
PROC: 0CDXXZ0 Extraction of Lower Tooth, Single, External Approach (ICD-10-PCS; 2017-10-05)
DX: K12.2 Cellulitis and abscess of mouth (principal); E87.1 Hypo-osmolality and hyponatremia; I10 Essential (primary) hypertension; E03.9 Hypothyroidism, unspecified; E87.6 Hypokalemia; F32.9 Major depressive disorder, single episode, unspecified; E78.5 Hyperlipidemia, unspecified; B96.89 Other specified bacterial agents as the cause of diseases classified elsewhere; Z88.0 Allergy status to penicillin; Z79.82 Long term (current) use of aspirin; Z79.899 Other long term (current) drug therapy
CPT/HCPCS: 36415; 80048; 80053; 83605; 85025; 87040; 87070; 87076; 87205; 93005; 96361; 96365; 96375; A4216; J1100; J1885; J2001; J2270; J2405; J2550; J2704; J3010; J3490; Q0162

== ENCOUNTER 2017-10-19 14:09 | Outpatient (CLI) | payer MEDICARE, OTHER ==
[~2017-10-19 14:09] MED LIST changes: -Dexamethasone 20 MG/5 ML VIAL ONE; -Glycopyrrolate 0.2 MG/ML 5 ML SYRINGE ONE; +Iopamidol 370 76% 100 ML VIAL ONE; -Lidocaine 1% PF 5 ML VIAL ONE; -Ondansetron HCl/PF 4 MG/2 ML Vial ONE; -PHENYLEPHRINE-NS 100 MCG/ML 10 ML SYRINGE ONE; -PROPOFOL 200 MG/20 ML VIAL ONE; -ePHEDrine/0.9% NaCl/PF SYRINGE 50 mg/10 ml ONE
--- NOTE | 2017-10-19 15:23 | CT ---
NECK CT WITH IV CONTRAST: DATE: 10/19/17. COMPARISON: None. HISTORY: Left submandibular swelling for 2 weeks. TECHNIQUE: Serial axial CT imaging at 2.5 mm intervals from the skull base through the lung apices with IV contr ast. Coronal and sagittal reformatted imaging obtained. FINDINGS: Imaged brain parenchyma grossly unremarkable. The retroantral fat and parapharyngeal fat appears grossly unremarkable bilaterally. Right parotid a nd submandibular glands are unremarkable. There is a lucency involving the posterior left mandibular tooth socket, where there is a tooth which is absent when compared to a CT angiogram of the head performed 07/14/16. The patient reports recent dental surgery, which suggests that perhaps the posterior-most left mandibular tooth was extracted r ecently. In this region along the medial cortex of the mandible, there is cortical breakthrough. Th ere is gingival soft tissue swelling both along the inner and the outer cortex of the mandible at the level of the ankle adjacent to this tooth socket. Along the angle of the mandible, there is abnorma l hypodensity on the left along the inner and the outer cortex suggesting abscess. At the level of t he angle of the mandible, a rim-enhancing fluid collection is seen along the inner cortex measuring 1 .6 cm on image 28. The masseter muscle is hypodense and enlarged on the left, suggesting myositis. Inferior to the angle of the mandible, inseparable from the ventral aspect of the left sternocleidoma stoid muscle, is a rim-enhancing fluid collection measuring 2.4 cm. There is adjacent inflammatory s tranding of the subcutaneous fat extending from the axial level of the angle of the mandible to the a xial level of the hyoid bone with induration and abnormal density within the adjacent left submandibu lar gland, left sternocleidomastoid muscle, and left parotid gland, suggesting secondary inflammatory /infectious change. There is a medialized retropharyngeal course of the internal carotid artery on the right in the oroph arynx. No mass is seen in the region of the palatine tonsil on either side. The hyoid bone, epiglottis, pre epiglottic fat, thyroid cartilage, and cricoid cartilage appear unremarkable as does the level of the glottis. There is a hypodense lesion in the inferior posterior left lobe of the thyroid gland measu ring 7 mm. Imaged lung apices demonstrate increased linear interstitial density as well as centrilobular emphyse matous change. There is atherosclerotic calcification of the aortic arch extending into the great vessels. No significant lymphadenopathy is seen. The imaged osseous structures demonstrate no worrisome lytic or blastic bone lesions. There is multilevel degenerative change noted within the cervical spine wh ich includes multilevel bilateral facet and uncovertebral osteophyte formation, left greater than rig ht, most prominent at C2-3 and C3-4. There is mild anterolisthesis of C3 on C4 and there is disk spa ce narrowing with degenerative end plate change at C4-5, C5-6, and C6-7. IMPRESSION: There is extensive inflammatory change centered in the region of the left angle of the mandible and i nferior to the angle of the mandible. Gingival-based fluid collections concerning for abscess format ion along the inner and the outer cortex of the mandible. Rim-enhancing fluid collection inferior to angle of mandible consistent with additional abscess formation inseparable from the sternocleidomasto id muscle, parotid gland, and submandibular gland. These findings suggest extensive odontogenic infe ction with multifocal abscess formation. Results/details were discussed with Dr. Sandoval at 3:10 p.m. 10/19/17. Follow up imaing advised foll owing treatment to document resolution. CODE CR POS: JILL
== END 2017-10-19 14:10 | disposition home or self-care (01) ==
LOC: CT 14:09
PROVIDERS: ATTEND Dentist Oral and Maxillofacial Surgery
DX: R22.0 Localized swelling, mass and lump, head (principal)
CPT/HCPCS: 70491

== ENCOUNTER 2017-10-20 10:53 | Inpatient (IN) | payer MEDICARE, OTHER ==
[~2017-10-20 10:53] MED LIST changes: +Dexamethasone 20 MG/5 ML VIAL ONE; -Iopamidol 370 76% 100 ML VIAL ONE; +Lidocaine 1% PF 5 ML VIAL ONE; +Ondansetron HCl/PF 4 MG/2 ML Vial ONE; +PROPOFOL 200 MG/20 ML VIAL ONE; +Succinylcholine Chloride 20 MG/ML 10 ml SYRINGE FS ONE
[2017-10-20] MEDS ORDERED: Clindamycin/D5W 600 mg/50 ml Premix Bag ONE (12:40)
[2017-10-20] MEDS ORDERED: Fentanyl 100 MCG/2 ML VIAL ONE ×4 (13:27→16:59)
[2017-10-20] MEDS ORDERED: Lidocaine 1% w/Epinephrine 1:100K 30 ML VIAL ONE (13:32)
[2017-10-20] MEDS ORDERED: Bacitracin Zinc Ointment 30 gm TUBE ONE (13:32)
[2017-10-20] MEDS ORDERED: Chlorhexidine Gluconate 15 ML UDCUP SSP ONE (13:32)
[2017-10-20] MEDS ORDERED: Sodium Chloride 0.9% 10 ML ONE ×2 (13:33→17:31)
[2017-10-20] MEDS ORDERED: Promethazine HCl 25 MG/ML VIAL SLOW IVP PRN (15:29)
[2017-10-20] MEDS ORDERED: Promethazine HCl 25 MG/ML VIAL IM PRN (15:29)
[2017-10-20] MEDS ORDERED: Ondansetron HCl/PF 4 MG/2 ML Vial IVP PRN ×2 (15:29→17:33)
[2017-10-20] MEDS ORDERED: Acetaminophen 500 MG TAB PO PRN (17:33)
[2017-10-20] MEDS ORDERED: traMADol HCl 50 MG TAB PO PRN (17:33)
[2017-10-20] MEDS ORDERED: cloNIDine 0.1 MG TAB PO PRN (17:33)
[2017-10-20] MEDS ORDERED: Chloraseptic Spray 180 ml Bottle PO PRN (17:33)
[2017-10-20] MEDS ORDERED: Ondansetron ODT 4 MG TAB PO PRN (17:33)
[2017-10-20] MEDS ORDERED: hydrALAZINE 20 MG/ML VIAL SLOW IVP PRN (17:33)
[2017-10-20] MEDS ORDERED: Docusate 100 MG CAP PO PRN (17:33)
[2017-10-20] MEDS ORDERED: HYDROcodone/Acetaminophen 5/325 mg Tablet PO PRN (17:33)
[2017-10-20] MEDS ORDERED: Refresh (Polyvinyl Alcohol 1.4%/Povidone 0.6%) Opth Drops EA EYE PRN (19:00)
[2017-10-20 20:05] VITALS: BMI 21.7
[2017-10-20] MEDS ORDERED: Clindamycin/D5W 600 MG in Premix Bag 1 BAG IVPB SCH (20:30)
[2017-10-20] MEDS: Clindamycin/D5W 600 MG in Premix Bag 1 BAG IVPB SCH ×2 (21:16→23:09)
[2017-10-20] MEDS: Famotidine 20 MG TAB PO SCH (21:19)
[2017-10-20] MEDS: Amitriptyline HCl 25 MG TAB PO SCH (21:19)
[2017-10-20] MEDS: Chlorhexidine Gluconate 15 ML UDCUP SSP SCH (21:20)
[2017-10-20] MEDS: Sodium Chloride 0.9% 1,000 ML IV SCH (21:20)
[2017-10-20] MEDS ORDERED: Vancomycin HCl 1 GM in Premix Bag 1 BAG IVPB SCH (22:00)
[2017-10-20] MEDS: HYDROcodone/Acetaminophen 5/325 mg Tablet PO PRN (22:11)
[2017-10-20] MEDS: Zolpidem Tartrate 5 MG TAB PO SCH (23:09)
--- NOTE | 2017-10-21 01:30 | HP ---
DATE OF ADMISSION: 10/20/2017 PRIMARY CARE PHYSICIAN: Dr. Celestine Josue. CHIEF COMPLAINT: Recurrent left-mandible swelling. HISTORY OF PRESENT ILLNESS: This is an 81-year-old female who presents to [facility] with recurrent left submandibular space abscess. Patient had previously undergone a transcervical and transoral incision and drainage of the left submandibular space abscess on 2017 and surgical extraction of tooth #18. Patient apparently had been discharged home on 10/09/2017 with a prescription for clindamycin 300 mg q.i.d. Patient apparently had developed increasing swell ing to the left neck, undergoing evaluation by the Oral Maxillofacial Surgery Service. Patient was t aken back to the OR on 10/20/2017 for repeat transcervical incision and drainage of left submandibula r space abscess. Patient currently in the postoperative care unit with plans for admission to the [facility]. Patient currently denies any specific increased pain and is difficult to obtain any hi story from due to anesthesia effect. History is obtained mainly from review of the electronic medica l record and discussions with the PACU nursing personnel. PAST MEDICAL HISTORY: 1. Left submandibular space abscess status post incision and drainage on 10/05/2017. 2. Hypothyroidism. 3. Hypertension. 4. Hypokalemia. PAST SURGICAL HISTORY: Status post left submandibular abscess incision and drainage with extraction of tooth #18. CURRENT MEDICATIONS: 1. Amitriptyline 25 mg p.o. at bedtime. 2. Enteric-coated aspirin 81 mg p.o. daily. 3. Bupropion XL 150 mg p.o. daily. 4. Refresh eyedrops one drop to each eye daily p.r.n. 5. Clindamycin 300 mg p.o. q.i.d. 6. Colace 100 mg p.o. b.i.d. 7. Nexium 20 mg p.o. q.a.m. 8. Levothyroxine 25 mcg p.o. q.a.m. 9. Magnesium 250 mg p.o. daily. 10. Simvastatin 20 mg p.o. at bedtime. 11. Ambien 5 mg p.o. at bedtime. ALLERGIES: PENICILLIN. FAMILY HISTORY: No inheritable disease per patient report. SOCIAL HISTORY: Patient resides in [facility]. No current alcohol, tobacco, or illi cit drug use. Functional of all activities of daily living. REVIEW OF SYSTEMS: Unobtainable due to patient's altered mentation due to anesthesia. PHYSICAL EXAMINATION: VITAL SIGNS: Currently, blood pressure 180/66, pulse 88, respiratory rate 20, temperature 98 degrees Fahrenheit, O2 saturation 96% on room air. GENERAL APPEARANCE: This is an 81-year-old female, alert to name, garbled speech, follows simple commands, in no acute distress. HEENT: Pupils are equal, round, and reactive to light and accommodation. Extraocular muscles are in tact. No scleral icterus, no conjunctival injection. Nares patent. Edema noted in the left mandibu lar region and buccal mucosa. NECK: Supple with edema noted on the anterior and lateral left neck with surgical dressing in place. Post-surgical changes noted. Tenderness to palpation noted in the same region as well as posterior C-spine. No meningeal signs appreciated. CHEST: Lungs are clear to auscultation bilaterally. CARDIOVASCULAR: S1, S2 without noted murmur, rub or gallop. ABDOMEN: Rounded, soft, nontender, nondistended. Bowel sounds are positive in all four quadrants. There is no hepatosplenomegaly, no abdominal bruits, no rebound or guarding appreciated. EXTREMITIES: Warm and dry with fair turgor. No clubbing, cyanosis, or asymmetric during edema appre ciated. Pulses palpable distally at the dorsalis pedis, posterior tibial, and popliteal arteries harley aterally. Capillary refill less than 2 seconds. NEUROLOGIC: Alert and oriented x2. Garbled speech. Follows simple commands. Moves extremities ran domly. PERTINENT LABORATORY DATA AND X-RAY FINDINGS: The labs dated on 10/08/2017 showed sodium 130, potass ium 3.1, chloride 98, CO2 of 22, BUN 8, creatinine 0.60, glucose 87. Lactic acid level 1.1. CBC ber[place] wed a white blood cell count of 10.4, hemoglobin 13.5, hematocrit 41, platelet count 182. CT of the soft tissues of the neck dated 10/19/2017 showed extensive inflammatory changes in the region of the left mandibular angle. Fluid collections noted with abscess formation in the inner and outer cortex of the mandible. Additional abscess formation of the sternocleidomastoid, parotid, and submandibular gland. ASSESSMENT AND PLAN: 1. Recurrent left submandibular space abscess. Status post incision and drainage per Oral Maxillofa cial Surgery Service. We will continue pain control. Continue intravenous with normal saline at 75 mL per hour. Continue clindamycin 600 mg IV q.6 hours. Add additional vancomycin 1 gram IV q.12 sacha rs. 2. Hyponatremia, etiology unclear. We will continue intravenous normal saline and repeat sodium lev el in the a.m. 3. Hypothyroidism. Resume home regimen to include levothyroxine 25 mcg p.o. q.a.m. 4. Prophylaxis. Sequential compression devices while in bed. Pepcid 20 mg p.o. b.i.d. 5. Code status is FULL. Surrogate medical decision maker is patient's spouse.
[2017-10-21] MEDS: Sodium Chloride 0.9% 1,000 ML IV SCH ×4 (03:33→23:03)
[2017-10-21 05:46] LABS: Band 19 % (5-11); Hemoglobin 10.7 g/dL (12.0-16.0); Lymphocytes 9 % (21-51); MDiff Complete? YES; Mean Corpuscular HGB CONC 31.5 g/dL (32.0-36.0); Mean Corpuscular Hemoglobin 26.2 pg (27.0-31.0); Mean Corpuscular Volume 83.1 fL (78.0-98.0); Mean Platelet Volume 9.3 fL (7.4-10.4); Monocytes 3 % (0-10); Neutrophil 69 % (42-75); PLT Morphology Comment Appears Adequate; Platelet Count 239 thou/uL (130-400); RBC Distribution Width 12.8 % (11.5-14.5); Red Blood Cell (RBC) Count 4.07 mill/uL (4.20-5.40); White Blood Cell (WBC) Count 10.5 thou/uL (4.8-10.8)
[2017-10-21 05:51] LABS: Anion Gap 11 mmol/L (10-20); BUN (Urea Nitrogen) 5 mg/dL (9.8-20.1); Calc. Creatinine Clearance 73 mL/min (70-130); Calcium 8.3 mg/dL (7.8-10.44); Carbon Dioxide 24 mmol/L (23-31); Chloride 99 mmol/L (98-107); Estimated GFR-MDRD Greater than 90; Glucose 117 mg/dL (83-110); Potassium 3.5 mmol/L (3.5-5.1); Sodium 130 mmol/L (136-145)
[2017-10-21] MEDS: Clindamycin/D5W 600 MG in Premix Bag 1 BAG IVPB SCH ×4 (06:28→23:03)
[2017-10-21] MEDS: Levothyroxine Sodium 25 MCG TAB PO SCH (06:28)
[2017-10-21] MEDS: Chlorhexidine Gluconate 15 ML UDCUP SSP SCH ×2 (08:47→20:06)
[2017-10-21] MEDS: Vancomycin HCl 500 MG in Sodium Chloride 0.9% 100 ML IVPB SCH ×2 (08:48→20:06)
[2017-10-21] MEDS: Famotidine 20 MG TAB PO SCH ×2 (08:48→20:06)
[2017-10-21] MEDS: HYDROcodone/Acetaminophen 5/325 mg Tablet PO PRN ×2 (12:11→20:07)
[2017-10-21] MEDS: Bupropion 150 MG XL TAB PO SCH (12:12)
--- NOTE | 2017-10-21 12:24 | PDOC.PN ---
- Subjective Encounter Start Date: 10/21/17 Encounter Start Time: 10:15 Subjective: awake, pain is better -: daughter at bedside - Objective Resuscitation Status: Resuscitation Status FULL:Full Resuscitation MAR Reviewed: Yes Vital Signs & Weight: Vital Signs (12 hours) Temp Pulse Resp BP Pulse Ox 10/21/17 07:25 98.0 F 72 14 96/49 L 98 10/21/17 04:07 97.9 F 84 16 112/62 94 L 10/21/17 00:43 95 10/21/17 00:42 97.4 F L 87 16 111/64 95 Weight Weight 123 lb I&O: 10/20/17 10/21/17 10/22/17 06:59 06:59 06:59 Intake Total 1140 Balance 1140 Result Diagrams: 10/21/17 05:08 10/21/17 05:08 Phys Exam - Physical Examination HEENT: PERRLA, moist MMs has dressing + Respiratory: no wheezing, no rales Cardiovascular: RRR, no significant murmur Gastrointestinal: soft, non-tender, positive bowel sounds Musculoskeletal: no edema, pulses present Neurological: non-focal, moves all 4 limbs Psychiatric: A&O x 3 Dx/Plan (1) Submandibular abscess Code(s): K12.2 - CELLULITIS AND ABSCESS OF MOUTH Status: Acute Comment: s/p debridement on 10/20/17 (2) Dyslipidemia Code(s): E78.5 - HYPERLIPIDEMIA, UNSPECIFIED Status: Chronic (3) HTN (hypertension) Code(s): I10 - ESSENTIAL (PRIMARY) HYPERTENSION Status: Chronic Qualifiers: Hypertension type: essential hypertension Qualified Code(s): I10 - Essential (primary) hypertension (4) Hypothyroid Code(s): E03.9 - HYPOTHYROIDISM, UNSPECIFIED Status: Chronic Qualifiers: Hypothyroidism type: unspecified Qualified Code(s): E03.9 - Hypothyroidism , unspecified (5) Chronic anemia Code(s): D64.9 - ANEMIA, UNSPECIFIED Status: Chronic - Plan had a prior debridement on 10/05/17 with extraction of tooth # 18 -: on clear liq, clinda and vanc -: prelim cultures are growing strep -: gentle iv hydration * . Review of Systems - Medications/Allergies Allergies/Adverse Reactions: Allergies Allergy/AdvReac Type Severity Reaction Status Date / Time Penicillins Allergy Verified 10/05/17 20:12 pneumococcal vaccine Allergy Verified 10/20/17 20:22 Medications: Current Medications Acetaminophen (Tylenol) 1,000 mg PO Q6H PRN PRN Reason: Headache/Fever or Mild Pain Hydrocodone Bitart/Acetaminophen ([place] 5/325) 1 tab PO Q4H PRN PRN Reason: Moderate Pain (4-6) Hydrocodone Bitart/Acetaminophen ([place]lin 5/325) 2 tab PO Q4H PRN PRN Reason: Severe Pain (7-10) Last Admin: 10/21/17 12:11 Dose: 2 tab Amitriptyline HCl (Elavil) 25 mg PO QPM [facility] Last Admin: 10/20/17 21:19 Dose: 25 mg Bupropion HCl (Wellbutrin Xl) 150 mg PO 1200 [facility] Last Admin: 10/21/17 12:12 Dose: 150 mg Chlorhexidine Gluconate (Chlorhexidine Gluconate) 15 ml SSP BID [facility] Last Admin: 10/21/17 08:47 Dose: 15 ml Clonidine (Catapres) 0.1 mg PO Q4H PRN PRN Reason: Systolic BP > 180 Docusate Sodium (Colace) 100 mg PO BID PRN PRN Reason: Constipation Famotidine (Pepcid) 20 mg PO BID [facility] Last Admin: 10/21/17 08:48 Dose: 20 mg Hydralazine HCl (Apresoline) 10 mg SLOW IVP Q4H PRN PRN Reason: Systolic BP > 180 Clindamycin Phosphate/Dextrose (600 mg/ Device) 50 mls @ 100 mls/hr IVPB Q6HR [facility] Last Admin: 10/21/17 12:12 Dose: 50 mls Sodium Chloride (Normal Saline 0.9%) 1,000 mls @ 75 mls/hr IV .[id number] [facility] Last Admin: 10/21/17 03:33 Dose: 1,000 mls Vancomycin HCl 500 mg/ Sodium (Chloride) 100 mls @ 100 mls/hr IVPB Q12HR [facility] Last Admin: 10/21/17 08:48 Dose: 100 mls Levothyroxine Sodium (Synthroid) 25 mcg PO 0600 [facility] Last Admin: 10/21/17 06:28 Dose: 25 mcg Ondansetron HCl (Zofran Odt) 4 mg PO Q6H PRN PRN Reason: Nausea/Vomiting Ondansetron HCl (Zofran) 4 mg IVP Q6H PRN PRN Reason: Nausea/Vomiting Phenol (Chloraseptic [place] 180 Ml Bot) 0 ml PO PRN PRN PRN Reason: Sore Throat Polyvinyl Alcohol/Povidone (Refresh Classic Eye Drops) 0 each EA EYE PRN PRN PRN Reason: DRY EYES Sodium Chloride (Flush - Normal Saline) 10 ml IVF Q12HR [facility] Last Admin: 10/21/17 12:15 Dose: 10 ml Sodium Chloride (Flush - Normal Saline) 10 ml IVF PRN PRN PRN Reason: Saline Flush Tramadol HCl (Ultram) 50 mg PO Q4H PRN PRN Reason: Moderate Pain (4-6) Zolpidem Tartrate (Ambien) 5 mg PO HS [facility] Last Admin: 10/20/17 23:09 Dose: 5 mg
[2017-10-21] MEDS: Amitriptyline HCl 25 MG TAB PO SCH (20:06)
[2017-10-21] MEDS: Zolpidem Tartrate 5 MG TAB PO SCH (23:04)
[2017-10-22] MEDS: HYDROcodone/Acetaminophen 5/325 mg Tablet PO PRN ×5 (00:54→20:05)
[2017-10-22] MEDS: Clindamycin/D5W 600 MG in Premix Bag 1 BAG IVPB SCH ×4 (05:31→18:55)
[2017-10-22] MEDS: Levothyroxine Sodium 25 MCG TAB PO SCH (05:31)
[2017-10-22 05:37] LABS: #Basophils 0.1 thou/uL (0.0-0.2); #Lymphocytes 2.1 thou/uL (1.20-3.40); #Monocytes 0.8 thou/uL (0.11-0.59); #Neutrophils 6.2 thou/uL (1.40-6.50); %Basophils 0.6 % (0.0-1.0); %Eosinophils 0.5 % (0.0-10.0); %Monocytes 8.7 % (0.0-10.0); %Neutrophils 67.2 % (42.0-75.0); Hemoglobin 10.2 g/dL (12.0-16.0); Mean Corpuscular HGB CONC 32.7 g/dL (32.0-36.0); Mean Corpuscular Hemoglobin 27.2 pg (27.0-31.0); Mean Corpuscular Volume 82.9 fL (78.0-98.0); Mean Platelet Volume 9.4 fL (7.4-10.4); Platelet Count 233 thou/uL (130-400); RBC Distribution Width 12.7 % (11.5-14.5); Red Blood Cell (RBC) Count 3.75 mill/uL (4.20-5.40); White Blood Cell (WBC) Count 9.3 thou/uL (4.8-10.8)
[2017-10-22 05:49] LABS: Anion Gap 10 mmol/L (10-20); BUN (Urea Nitrogen) 4 mg/dL (9.8-20.1); Calc. Creatinine Clearance 69 mL/min (70-130); Calcium 8.3 mg/dL (7.8-10.44); Carbon Dioxide 27 mmol/L (23-31); Chloride 101 mmol/L (98-107); Estimated GFR-MDRD Greater than 90; Glucose 89 mg/dL (83-110); Sodium 135 mmol/L (136-145)
[2017-10-22 05:53] LABS: Potassium 2.9 mmol/L (3.5-5.1)
[2017-10-22 06:43] LABS: Potassium 3.2 mmol/L (3.5-5.1)
[2017-10-22 08:18] LABS: Vancomycin, Trough 7.1 ug/mL
[2017-10-22] MEDS ORDERED: Loperamide HCl 2 MG CAP PO PRN (08:26)
[2017-10-22] MEDS ORDERED: Mag-Al 1200 mg/1200 mg/30 ML UDCUP PO PRN (08:26)
[2017-10-22] MEDS ORDERED: Diabetic Tussin 200 MG/10 ML UDCUP PO PRN (08:26)
[2017-10-22] MEDS ORDERED: Milk Of Magnesia 30 ML UDCUP PO PRN (08:26)
[2017-10-22] MEDS ORDERED: Artificial Tears 18 DROP/0.9 ML EA EYE PRN (08:26)
[2017-10-22] MEDS ORDERED: Sodium Chloride 0.65% Nasal 44 ML BOT EA NARE PRN (08:26)
[2017-10-22] MEDS ORDERED: Eucerin (Mineral Oil/Petrolatum,White) 30 gm Jar TOP PRN (08:26)
[2017-10-22] MEDS ORDERED: Loratadine 10 MG TAB PO PRN (08:26)
[2017-10-22] MEDS: Chlorhexidine Gluconate 15 ML UDCUP SSP SCH ×2 (09:30→21:11)
[2017-10-22] MEDS: Saccharomyces boulardii 250 MG CAP PO SCH (09:31)
[2017-10-22] MEDS: Famotidine 20 MG TAB PO SCH ×2 (09:31→21:12)
--- NOTE | 2017-10-22 11:36 | PDOC.PN ---
- Subjective Encounter Start Date: 10/22/17 Encounter Start Time: 07:40 -: old records requested/rev Patient seen and examined for submandibular abscess. No new complaints. No overnight events - Objective Resuscitation Status: Resuscitation Status FULL:Full Resuscitation MAR Reviewed: Yes Vital Signs & Weight: Vital Signs (12 hours) Temp Pulse Resp BP Pulse Ox 10/22/17 08:00 98.2 F 67 16 10/22/17 07:50 97.4 F L 68 14 145/73 H 94 L 10/22/17 04:00 98.2 F 67 16 110/61 93 L Weight Weight 123 lb I&O: 10/21/17 10/22/17 10/23/17 06:59 06:59 06:59 Intake Total 1140 1840 Balance 1140 1840 Result Diagrams: 10/22/17 04:12 10/22/17 06:23 Phys Exam - Physical Examination Constitutional: NAD HEENT: PERRLA, moist MMs, sclera anicteric submandibular area with dressing Neck: no JVD, supple Respiratory: no wheezing, no rales, no rhonchi Cardiovascular: RRR, no significant murmur, no rub Gastrointestinal: soft, non-tender, no distention, positive bowel sounds Musculoskeletal: no edema, pulses present Neurological: non-focal, normal sensation, moves all 4 limbs Psychiatric: normal affect, A&O x 3 Skin: no rash, normal turgor Dx/Plan (1) Infected tooth Code(s): K04.7 - PERIAPICAL ABSCESS WITHOUT SINUS Status: Acute (2) Submandibular abscess Code(s): K12.2 - CELLULITIS AND ABSCESS OF MOUTH Status: Acute Comment: s/p debridement on 10/20/17 (3) Hypokalemia Code(s): E87.6 - HYPOKALEMIA Status: Acute (4) Hyponatremia Code(s): E87.1 - HYPO-OSMOLALITY AND HYPONATREMIA Status: Acute (5) Anemia, normocytic normochromic Code(s): D64.9 - ANEMIA, UNSPECIFIED Status: Chronic (6) Dyslipidemia Code(s): E78.5 - HYPERLIPIDEMIA, UNSPECIFIED Status: Chronic (7) HTN (hypertension) Code(s): I10 - ESSENTIAL (PRIMARY) HYPERTENSION Status: Chronic Qualifiers: Hypertension type: essential hypertension Qualified Code(s): I10 - Essential (primary) hypertension (8) Hypothyroidism Code(s): E03.9 - HYPOTHYROIDISM, UNSPECIFIED Status: Chronic - Plan cont current plan of care, plan discussed w/ family, continue antibiotics * replace potassium * continue clindamycin and vancomycin * add florastor * oral surgeon following * wound care * pain control * discussed with . * medication reviewed as below * symptomatic treatment Review of Systems - Review of Systems Eyes: negative: Pain, Vision Change, Conjunctivae Inflammation, Eyelid Inflammation, Redness, Other ENT: Mouth Pain. negative: Ear Pain, Ear Discharge, Nose Pain, Nose Discharge, Nose Congestion, Mouth Swelling, Throat Pain, Throat Swelling, Other Respiratory: negative: Cough, Dry, Shortness of Breath, Hemoptysis, SOB with Excertion, Pleuritic Pain, Sputum, Wheezing Cardiovascular: negative: chest pain, palpitations, orthopnea, paroxysmal nocturnal dyspnea, edema, light headedness, other Gastrointestinal: negative: Nausea, Vomiting, Abdominal Pain, Diarrhea, Constipation, Melena, Hematochezia, Other Genitourinary: negative: Dysuria, Frequency, Incontinence, Hematuria, Retention , Other Musculoskeletal: negative: Neck Pain, Shoulder Pain, Arm Pain, Back Pain, Hand Pain, Leg Pain, Foot Pain, Other Skin: negative: Rash, Lesions, Marco, Bruising, Other - Medications/Allergies Allergies/Adverse Reactions: Allergies Allergy/AdvReac Type Severity Reaction Status Date / Time Penicillins Allergy Verified 10/05/17 20:12 pneumococcal vaccine Allergy Verified 10/20/17 20:22 Medications: Current Medications Acetaminophen (Tylenol) 1,000 mg PO Q6H PRN PRN Reason: Headache/Fever or Mild Pain Hydrocodone Bitart/Acetaminophen ([place] 5/325) 1 tab PO Q4H PRN PRN Reason: Moderate Pain (4-6) Hydrocodone Bitart/Acetaminophen ([place] 5/325) 2 tab PO Q4H PRN PRN Reason: Severe Pain (7-10) Last Admin: 10/22/17 09:35 Dose: 2 tab Al Hydroxide/Mg Hydroxide (Maalox) 15 ml PO Q4H PRN PRN Reason: Heartburn or Indigestion Amitriptyline HCl (Elavil) 25 mg PO QPM [facility] Last Admin: 10/21/17 20:06 Dose: 25 mg Artificial Tears (Tears Naturale) 0 drop EA EYE PRN PRN PRN Reason: Dry Eyes Atorvastatin Calcium (Lipitor) 10 mg PO HS [facility] Bupropion HCl (Wellbutrin Xl) 150 mg PO 1200 [facility] Last Admin: 10/21/17 12:12 Dose: 150 mg Chlorhexidine Gluconate (Chlorhexidine Gluconate) 15 ml SSP BID [facility] Last Admin: 10/22/17 09:30 Dose: 15 ml Clonidine (Catapres) 0.1 mg PO Q4H PRN PRN Reason: Systolic BP > 180 Docusate Sodium (Colace) 100 mg PO BID PRN PRN Reason: Constipation Famotidine (Pepcid) 20 mg PO BID [facility] Last Admin: 10/22/17 09:31 Dose: 20 mg Guaifenesin (Robitussin Sf) 200 mg PO Q4H PRN PRN Reason: Cough Hydralazine HCl (Apresoline) 10 mg SLOW IVP Q4H PRN PRN Reason: Systolic BP > 180 Clindamycin Phosphate/Dextrose (600 mg/ Device) 50 mls @ 100 mls/hr IVPB Q6HR [facility] Last Admin: 10/22/17 05:31 Dose: 50 mls Sodium Chloride (Normal Saline 0.9%) 1,000 mls @ 75 mls/hr IV .[id number] [facility] Last Admin: 10/21/17 23:03 Dose: 1,000 mls Vancomycin HCl 750 mg/ Sodium (Chloride) 250 mls @ 250 mls/hr IVPB 1000,2200 [facility] Levothyroxine Sodium (Synthroid) 25 mcg PO 0600 [facility] Last Admin: 10/22/17 05:31 Dose: 25 mcg Loperamide HCl (Imodium) 2 mg PO PRN PRN PRN Reason: Diarrhea/Loose Stools Loratadine (Claritin) 10 mg PO DAILYPRN PRN PRN Reason: Sinus Symptoms Magnesium Hydroxide (Milk Of Magnesium) 30 ml PO DAILYPRN PRN PRN Reason: Constipation Mineral Oil/White Petrolatum (Eucerin Cream) 0 gm TOP BIDPRN PRN PRN Reason: Dry Skin Ondansetron HCl (Zofran Odt) 4 mg PO Q6H PRN PRN Reason: Nausea/Vomiting Ondansetron HCl (Zofran) 4 mg IVP Q6H PRN PRN Reason: Nausea/Vomiting Phenol (Chloraseptic [place] 180 Ml Bot) 0 ml PO PRN PRN PRN Reason: Sore Throat Polyvinyl Alcohol/Povidone (Refresh Classic Eye Drops) 0 each EA EYE PRN PRN PRN Reason: DRY EYES Saccharomyces Boulardii (Florastor) 250 mg PO DAILY [facility] Last Admin: 10/22/17 09:31 Dose: 250 mg Sodium Chloride (Flush - Normal Saline) 10 ml IVF Q12HR [facility] Last Admin: 10/22/17 09:32 Dose: Not Given Sodium Chloride (Flush - Normal Saline) 10 ml IVF PRN PRN PRN Reason: Saline Flush Sodium Chloride ([place] Nasal [place] 0.65%) 0 ml EA NARE QIDPRN PRN PRN Reason: Nasal Congestion Tramadol HCl (Ultram) 50 mg PO Q4H PRN PRN Reason: Moderate Pain (4-6) Zolpidem Tartrate (Ambien) 5 mg PO HS [facility] Last Admin: 10/21/17 23:04 Dose: 5 mg
[2017-10-22] MEDS: Vancomycin HCl 750 MG in Sodium Chloride 0.9% 250 ML 250 ML IVPB SCH ×2 (11:45→22:58)
[2017-10-22] MEDS: Sodium Chloride 0.9% 1,000 ML IV SCH ×2 (11:54→23:09)
--- NOTE | 2017-10-22 11:54 | PRG ---
DATE OF SERVICE: 10/22/2017 TIME: 10:08 a.m. SUBJECTIVE: No acute 24-hour events. The patient said she had a fair night. She is voiding, ambula ting, and tolerating a soft diet. She does have complaints of pain to the surgery site. No difficul ty swallowing, no difficulty breathing. OBJECTIVE: VITAL SIGNS: Have been stable. She has been afebrile for the last 48 hours, T-max is 98.2, T-curren t 98.2, pulse 67, respirations 16, satting 94% on room air, blood pressure is 145/73. NECK: Her left submandibular wound dressing is soaked with a moderate amount of seropurulent fluid. There is a good amount of seropurulent drainage still coming through the left neck wounds, most nota mar the left most posterior neck wound. Her opening is good. HEENT: Her oral cavity is clean. There is no uvular deviation. Floor of mouth is soft. There is n o elevation of the tongue. Her breathing is nonlabored. Swelling is slightly down from yesterday. She is still operator to palpation in the left submandibular area. LABORATORY DATA: Patient's white count today is 9, down from 10. ASSESSMENT: The patient is showing slow improvement, but does appear to be slightly improving today. PLAN: I removed the small quarter-inch [place] drain in the anterior incision in the submandibular a blaze, changed dressing. We will continue dressing changes 3 times a day. Ambulation was once again e ncouraged and we will leave posterior neck drain in for approximately 1 more day. We will continue I V antibiotics. Follow up culture and sensitivities. We will follow up in 24 hours.
[2017-10-22] MEDS: Bupropion 150 MG XL TAB PO SCH (11:56)
[2017-10-22] MEDS: Vancomycin HCl 500 MG in Sodium Chloride 0.9% 100 ML IVPB SCH (11:58)
[2017-10-22] MEDS ORDERED: Atorvastatin Calcium 10 MG TAB PO SCH (21:00)
[2017-10-22] MEDS: Amitriptyline HCl 25 MG TAB PO SCH (21:12)
[2017-10-22] MEDS: Zolpidem Tartrate 5 MG TAB PO SCH (22:57)
[2017-10-23] MEDS: Clindamycin/D5W 600 MG in Premix Bag 1 BAG IVPB SCH ×4 (00:14→17:31)
[2017-10-23] MEDS: HYDROcodone/Acetaminophen 5/325 mg Tablet PO PRN ×4 (01:36→12:54)
[2017-10-23] MEDS: Levothyroxine Sodium 25 MCG TAB PO SCH (05:25)
[2017-10-23 05:26] LABS: #Basophils 0.1 thou/uL (0.0-0.2); #Eosinphils 0.2 thou/uL (0.0-0.7); #Lymphocytes 1.9 thou/uL (1.20-3.40); #Monocytes 0.7 thou/uL (0.11-0.59); #Neutrophils 3.4 thou/uL (1.40-6.50); %Basophils 1.3 % (0.0-1.0); %Eosinophils 3.5 % (0.0-10.0); %Lymphocytes 30.2 % (21.0-51.0); %Monocytes 11.2 % (0.0-10.0); %Neutrophils 53.8 % (42.0-75.0); Hemoglobin 11.4 g/dL (12.0-16.0); Mean Corpuscular HGB CONC 32.7 g/dL (32.0-36.0); Mean Corpuscular Hemoglobin 27.4 pg (27.0-31.0); Mean Corpuscular Volume 83.6 fL (78.0-98.0); Mean Platelet Volume 9.3 fL (7.4-10.4); Platelet Count 242 thou/uL (130-400); Red Blood Cell (RBC) Count 4.18 mill/uL (4.20-5.40); White Blood Cell (WBC) Count 6.3 thou/uL (4.8-10.8)
[2017-10-23 05:35] LABS: ALT (SGPT) 7 U/L (8-55); AST (SGOT) 15 U/L (5-34); Albumin 3.1 g/dL (3.4-4.8); Alkaline Phosphatase 92 U/L (40-150); Anion Gap 11 mmol/L (10-20); BUN (Urea Nitrogen) 4 mg/dL (9.8-20.1); Bilirubin, Total 0.3 mg/dL (0.2-1.2); Calc. Creatinine Clearance 72 mL/min (70-130); Calcium 8.5 mg/dL (7.8-10.44); Carbon Dioxide 24 mmol/L (23-31); Chloride 103 mmol/L (98-107); Estimated GFR-MDRD Greater than 90; Globulin 3.3 g/dL (2.4-3.5); Glucose 89 mg/dL (83-110); Magnesium 1.8 mg/dL (1.6-2.6); Phosphorus 3.3 mg/dL (2.3-4.7); Potassium 3.3 mmol/L (3.5-5.1); Protein, Total 6.4 g/dL (6.0-8.3); Sodium 135 mmol/L (136-145)
[2017-10-23] MEDS: Potassium Chloride 20 MEQ TAB PO SCH ×2 (08:37→17:34)
[2017-10-23] MEDS: Famotidine 20 MG TAB PO SCH (08:38)
[2017-10-23] MEDS: Saccharomyces boulardii 250 MG CAP PO SCH (08:38)
[2017-10-23] MEDS: Chlorhexidine Gluconate 15 ML UDCUP SSP SCH (08:38)
--- NOTE | 2017-10-23 10:15 | PDOC.PN ---
- Subjective Encounter Start Date: 10/23/17 Encounter Start Time: 07:50 Patient seen and examined for submandibular abscess. No new complaints. No overnight events - Objective Resuscitation Status: Resuscitation Status FULL:Full Resuscitation MAR Reviewed: Yes Vital Signs & Weight: Vital Signs (12 hours) Temp Pulse Resp BP Pulse Ox 10/23/17 07:17 97.4 F L 69 16 155/77 H 91 L 10/23/17 03:53 98.2 F 71 16 147/72 H 93 L 10/22/17 23:21 98.3 F 82 16 170/89 H 92 L Weight Weight 123 lb I&O: 10/22/17 10/23/17 10/24/17 06:59 06:59 06:59 Intake Total 1840 Balance 1840 Result Diagrams: 10/23/17 05:03 10/23/17 05:03 Phys Exam - Physical Examination Constitutional: NAD HEENT: PERRLA, moist MMs, sclera anicteric submandibular abscess with dressing Neck: no JVD, supple Respiratory: no wheezing, no rales, no rhonchi Cardiovascular: RRR, no significant murmur, no rub Gastrointestinal: soft, non-tender, no distention, positive bowel sounds Musculoskeletal: no edema, pulses present Neurological: non-focal, normal sensation, moves all 4 limbs Lymphatic: no nodes Psychiatric: normal affect, A&O x 3 Skin: no rash, normal turgor Dx/Plan (1) Infected tooth Code(s): K04.7 - PERIAPICAL ABSCESS WITHOUT SINUS Status: Acute (2) Submandibular abscess Code(s): K12.2 - CELLULITIS AND ABSCESS OF MOUTH Status: Acute Comment: s/p debridement on 10/20/17 (3) Hypokalemia Code(s): E87.6 - HYPOKALEMIA Status: Acute (4) Hyponatremia Code(s): E87.1 - HYPO-OSMOLALITY AND HYPONATREMIA Status: Acute (5) Anemia, normocytic normochromic Code(s): D64.9 - ANEMIA, UNSPECIFIED Status: Chronic (6) Dyslipidemia Code(s): E78.5 - HYPERLIPIDEMIA, UNSPECIFIED Status: Chronic (7) HTN (hypertension) Code(s): I10 - ESSENTIAL (PRIMARY) HYPERTENSION Status: Chronic Qualifiers: Hypertension type: essential hypertension Qualified Code(s): I10 - Essential (primary) hypertension (8) Hypothyroidism Code(s): E03.9 - HYPOTHYROIDISM, UNSPECIFIED Status: Chronic - Plan cont current plan of care, plan discussed w/ family, continue antibiotics * continue clindamycin and vancomycin * medication reviewed as below * symptomatic treatment. * replace potassium * wound care * expecting discharge tomorrow Review of Systems - Review of Systems Eyes: negative: Pain, Vision Change, Conjunctivae Inflammation, Eyelid Inflammation, Redness, Other ENT: negative: Ear Pain, Ear Discharge, Nose Pain, Nose Discharge, Nose Congestion, Mouth Pain, Mouth Swelling, Throat Pain, Throat Swelling, Other Respiratory: negative: Cough, Dry, Shortness of Breath, Hemoptysis, SOB with Excertion, Pleuritic Pain, Sputum, Wheezing Cardiovascular: negative: chest pain, palpitations, orthopnea, paroxysmal nocturnal dyspnea, edema, light headedness, other Gastrointestinal: negative: Nausea, Vomiting, Abdominal Pain, Diarrhea, Constipation, Melena, Hematochezia, Other Genitourinary: negative: Dysuria, Frequency, Incontinence, Hematuria, Retention , Other Musculoskeletal: negative: Neck Pain, Shoulder Pain, Arm Pain, Back Pain, Hand Pain, Leg Pain, Foot Pain, Other Skin: negative: Rash, Lesions, Marco, Bruising, Other - Medications/Allergies Allergies/Adverse Reactions: Allergies Allergy/AdvReac Type Severity Reaction Status Date / Time Penicillins Allergy Verified 10/05/17 20:12 pneumococcal vaccine Allergy Verified 10/20/17 20:22 Medications: Current Medications Acetaminophen (Tylenol) 1,000 mg PO Q6H PRN PRN Reason: Headache/Fever or Mild Pain Hydrocodone Bitart/Acetaminophen ([place] 5/325) 1 tab PO Q4H PRN PRN Reason: Moderate Pain (4-6) Hydrocodone Bitart/Acetaminophen ([place] 5/325) 2 tab PO Q4H PRN PRN Reason: Severe Pain (7-10) Last Admin: 10/23/17 08:40 Dose: 2 tab Al Hydroxide/Mg Hydroxide (Maalox) 15 ml PO Q4H PRN PRN Reason: Heartburn or Indigestion Amitriptyline HCl (Elavil) 25 mg PO QPM [facility] Last Admin: 10/22/17 21:12 Dose: 25 mg Artificial Tears (Tears Naturale) 0 drop EA EYE PRN PRN PRN Reason: Dry Eyes Atorvastatin Calcium (Lipitor) 10 mg PO HS [facility] Last Admin: 10/22/17 21:12 Dose: 10 mg Bupropion HCl (Wellbutrin Xl) 150 mg PO 1200 [facility] Last Admin: 10/22/17 11:56 Dose: 150 mg Chlorhexidine Gluconate (Chlorhexidine Gluconate) 15 ml SSP BID [facility] Last Admin: 10/23/17 08:38 Dose: 15 ml Clonidine (Catapres) 0.1 mg PO Q4H PRN PRN Reason: Systolic BP > 180 Docusate Sodium (Colace) 100 mg PO BID PRN PRN Reason: Constipation Famotidine (Pepcid) 20 mg PO BID [facility] Last Admin: 10/23/17 08:38 Dose: 20 mg Guaifenesin (Robitussin Sf) 200 mg PO Q4H PRN PRN Reason: Cough Hydralazine HCl (Apresoline) 10 mg SLOW IVP Q4H PRN PRN Reason: Systolic BP > 180 Clindamycin Phosphate/Dextrose (600 mg/ Device) 50 mls @ 100 mls/hr IVPB Q6HR [facility] Last Admin: 10/23/17 05:24 Dose: 50 mls Sodium Chloride (Normal Saline 0.9%) 1,000 mls @ 75 mls/hr IV .[id number] [facility] Last Admin: 10/22/17 23:09 Dose: Not Given Vancomycin HCl 750 mg/ Sodium (Chloride) 250 mls @ 250 mls/hr IVPB 1000,2200 [facility] Last Admin: 10/22/17 22:58 Dose: 250 mls Levothyroxine Sodium (Synthroid) 25 mcg PO 0600 [facility] Last Admin: 10/23/17 05:25 Dose: 25 mcg Loperamide HCl (Imodium) 2 mg PO PRN PRN PRN Reason: Diarrhea/Loose Stools Loratadine (Claritin) 10 mg PO DAILYPRN PRN PRN Reason: Sinus Symptoms Magnesium Hydroxide (Milk Of Magnesium) 30 ml PO DAILYPRN PRN PRN Reason: Constipation Mineral Oil/White Petrolatum (Eucerin Cream) 0 gm TOP BIDPRN PRN PRN Reason: Dry Skin Ondansetron HCl (Zofran Odt) 4 mg PO Q6H PRN PRN Reason: Nausea/Vomiting Ondansetron HCl (Zofran) 4 mg IVP Q6H PRN PRN Reason: Nausea/Vomiting Phenol (Chloraseptic [place] 180 Ml Bot) 0 ml PO PRN PRN PRN Reason: Sore Throat Polyvinyl Alcohol/Povidone (Refresh Classic Eye Drops) 0 each EA EYE PRN PRN PRN Reason: DRY EYES Potassium Chloride (K-Dur) 40 meq PO BID[facility] Stop: 10/23/17 17:01 Last Admin: 10/23/17 08:37 Dose: 40 meq Saccharomyces Boulardii (Florastor) 250 mg PO DAILY [facility] Last Admin: 10/23/17 08:38 Dose: 250 mg Sodium Chloride (Flush - Normal Saline) 10 ml IVF Q12HR [facility] Last Admin: 10/23/17 08:44 Dose: Not Given Sodium Chloride (Flush - Normal Saline) 10 ml IVF PRN PRN PRN Reason: Saline Flush Sodium Chloride ([place] Nasal [place] 0.65%) 0 ml EA NARE QIDPRN PRN PRN Reason: Nasal Congestion Tramadol HCl (Ultram) 50 mg PO Q4H PRN PRN Reason: Moderate Pain (4-6) Last Admin: 10/22/17 22:57 Dose: 50 mg Zolpidem Tartrate (Ambien) 5 mg PO HS [facility] Last Admin: 10/22/17 22:57 Dose: 5 mg
[2017-10-23] MEDS: Bupropion 150 MG XL TAB PO SCH (11:07)
[2017-10-23] MEDS: Vancomycin HCl 750 MG in Sodium Chloride 0.9% 250 ML 250 ML IVPB SCH (12:02)
[2017-10-23] MEDS: Sodium Chloride 0.9% 1,000 ML IV SCH ×2 (12:05→17:31)
[2017-10-23 15:46] VITALS: BP 122/72; TEMP 97.2
--- NOTE | 2017-10-24 10:48 | DIS ---
DATE OF ADMISSION: 10/20/2017 DATE OF DISCHARGE: 10/23/2017 ADMITTING DIAGNOSIS: Submandibular abscess. DISCHARGE DIAGNOSIS: Submandibular abscess. PROCEDURE PERFORMED IN HOSPITAL: Incision and drainage of submandibular abscess. COMPLICATIONS: None. Postoperative course was uneventful. HOSPITAL COURSE: This is an 81-year-old female taken to the operating room for repeat I&D of left [place] bmandibular abscess, which was done without complication. Cultures grew out Streptococcus sanguinis. The patient did well postoperatively. Drains were removed on postoperative day 2 and 3. She was p laced on IV antibiotics during that time. On discharge, she was stable with good vital signs, afebri le, voiding, ambulating, tolerating p.o., and her pain was well controlled. DISCHARGE DIET: Soft diet. FOLLOWUP: Follow up with [facility] reinforcing steel erector on 10/26/2017. DISCHARGE MEDICATIONS: Take home medications, the patient already has 5 days remaining of clindamyci n p.o. q.6 hours 300 mg. The patient has Tylenol #3 for pain as well as Peridex 15 mL swish and spit t.i.d. for mouth rinse.
--- NOTE | 2017-10-24 15:33 | DIS ---
DATE OF ADMISSION: 10/20/2017 DATE OF DISCHARGE: 10/23/2017 PRIMARY CARE PHYSICIAN: Millicent Alarcon NP DISCHARGE DISPOSITION: Home. PRIMARY DISCHARGE DIAGNOSES: 1. Submandibular abscess due to infected tooth. 2. Hyponatremia and hypokalemia. SECONDARY DISCHARGE DIAGNOSES: 1. Hypothyroidism. 2. Hypertension. 3. Dyslipidemia. 4. Anemia, normocytic, normochromic. PRIMARY PROCEDURE AND OPERATION: I&D was performed by Dr. Lj Sandoval. RADIOLOGICAL INVESTIGATION: Patient had a soft tissue neck, which showed submandibular abscess from infected tooth. SIGNIFICANT LABORATORY DATA: WBC 6.3, hemoglobin 11.4, platelet 242. Sodium 135, potassium 3.3, cre atinine 0.54. LFT normal. Culture from abscess grew Streptococcus. DISCHARGE MEDICATIONS: Clindamycin 300 mg p.o. q.6 hourly for 7-10 days, amitriptyline 25 mg p.o. da rufina, aspirin 81 mg p.o. daily, bupropion XL 150 mg p.o. daily, Nexium 20 mg p.o. daily, Synthroid 25 mcg p.o. daily, magnesium 250 mg p.o. daily, Zocor 20 mg p.o. daily, Ambien 5 mg p.o. at bedtime. CONTRAINDICATIONS: None. CODE STATUS: FULL CODE. INPATIENT CONSULTANTS: Dr. Lj Sandoval was following while in hospital. ALLERGIES: PENICILLIN. TEST RESULTS PENDING ON DISCHARGE: None. DISCHARGE PLAN: Post hospital, the patient will follow up with primary care physician as well as [place] cope surgeon, Dr. Calhoun. HOSPITAL COURSE: An 81-year-old female who was admitted by Dr. Lj Sandoval. The patient was di agnosed with submandibular abscess from infected tooth. Dr. Sandoval did a transcervical and transor al incision and drainage of left submandibular abscess and surgical removal of tooth #18. Postoperat ively, the patient was getting IV antibiotic therapy while in hospital with clindamycin and vancomyci n. Her culture grew Streptococcus anginosus. Upon discharge, all new medication prescription given by Dr. Calhoun. While in hospital, she was given IV fluid and her abnormal electrolytes were correct ed. Patient was seen and examined at bedside. Please see my progress note from that day. The patient wa s discharged by Dr. Calhoun.
== END 2017-10-23 18:43 | disposition home or self-care (01) | DRG 137 ==
LOC: SDC 10:53 → SURG B 17:33
PROVIDERS: ADMIT Family Medicine; ATTEND Dentist Oral and Maxillofacial Surgery
PROC: 0W950ZZ Drainage of Lower Jaw, Open Approach (ICD-10-PCS; principal; 2017-10-20)
DX: K12.2 Cellulitis and abscess of mouth (principal); E87.1 Hypo-osmolality and hyponatremia; B95.4 Other streptococcus as the cause of diseases classified elsewhere; K04.7 Periapical abscess without sinus; E87.6 Hypokalemia; D64.9 Anemia, unspecified; E78.5 Hyperlipidemia, unspecified; I10 Essential (primary) hypertension; E03.9 Hypothyroidism, unspecified; Z88.0 Allergy status to penicillin; R22.0 Localized swelling, mass and lump, head
CPT/HCPCS: 36415; 70491; 80048; 80053; 80202; 83735; 84100; 85007; 85025; 85027; 87070; 87076; 87205; A4216; J0131; J1100; J2001; J2405; J2704; J3010; J3370; J3490; J7050

== ENCOUNTER 2019-11-01 07:39 | Inpatient (IN) | payer MEDICARE, OTHER ==
[2019-11-01] MEDS ORDERED: Morphine 4 MG/ML VIAL ONE (08:20)
[2019-11-01 08:37] LABS: Hemoglobin 13.4 g/dL (12.0-16.0); Mean Corpuscular HGB CONC 32.9 g/dL (32.0-36.0); Mean Corpuscular Hemoglobin 29.5 pg (27.0-31.0); Mean Corpuscular Volume 89.8 fL (78.0-98.0); Platelet Count 281 thou/uL (130-400); RBC Distribution Width 16.4 % (11.5-14.5); Red Blood Cell (RBC) Count 4.54 mill/uL (4.20-5.40); White Blood Cell (WBC) Count 6.3 thou/uL (4.8-10.8)
[2019-11-01 08:55] LABS: Anisocytosis SLIGHT = 6-15 cells (100X) (0-5/hpf); Band 1 % (5-11); Eosinophils 3 % (0-10); Lymphocytes 30 % (21-51); MDiff Complete? YES; Monocytes 5 % (0-10); Neutrophil 59 % (42-75); Platelet Morphology Comment Appears Adequate
[2019-11-01 08:57] LABS: ALT (SGPT) 10 U/L (8-55); AST (SGOT) 22 U/L (5-34); Albumin 3.6 g/dL (3.4-4.8); Alkaline Phosphatase 100 U/L (40-110); Anion Gap 14 mmol/L (10-20); BUN (Urea Nitrogen) 10 mg/dL (9.8-20.1); Bilirubin, Total 0.3 mg/dL (0.2-1.2); Calc. Creatinine Clearance 0 mL/min (70-130); Calcium 9.1 mg/dL (7.8-10.44); Carbon Dioxide 22 mmol/L (23-31); Chloride 99 mmol/L (98-107); Estimated GFR-MDRD 84; Globulin 3.6 g/dL (2.4-3.5); Glucose 97 mg/dL (83-110); Lipase 35 U/L (8-78); Potassium 3.3 mmol/L (3.5-5.1); Protein, Total 7.2 g/dL (6.0-8.3); Sodium 132 mmol/L (136-145)
--- NOTE | 2019-11-01 09:26 | CT ---
CT ANGIOGRAM THORAX WITH CONTRAST: (CTA pulmonary angiogram) DATE: 11/01/2019 HISTORY: 83-year-old female with chest pain TECHNIQUE: IV injection of iodinated contrast. Scan acquisition timing attempted to coincide with iodinated contrast bolus reaching maximal density in pulmonary arteries. 3-D MIP reconstructions. FINDINGS: Pulmonary thromboembolism: None. Lungs: No consolidation or edema. Mild, possibly chronic, interstitial changes in bilateral upper lob es and lower lobes. Pneumothorax: None. Pleural effusion: None. Heart: No cardiomegaly. No pericardial effusion. Aorta: Ectatic, tortuous, and atherosclerotic, without aneurysm or dissection. Thoracic spine: Vertebroplasty cement within lower vertebral body with old compression fracture. House Shorer view demonstrates right subcapital displaced proximal femoral fracture. The distal tips of the 3 orthopedic screws are barely at the fracture site, and do not transfix the fracture. IMPRESSION: 1. No pulmonary thromboembolism. 2. Significantly displaced subcapital right proximal femoral fracture, not traversed and not fixated by 3 orthopedic screws.
[2019-11-01 09:37] LABS: Bilirubin Negative (Negative); Blood, Urine Negative (Negative); Clarity Clear (Clear); Glucose, Urine (Dipstick) Normal (Negative); Ketone, Urine 10 mg/dL (Negative); Leukocyte Negative Leu/uL (Negative); Nitrite Negative (Negative); Protein, Urine (Dipstick) 20 mg/dL (Neg-Trace); Specific Gravity, Urine 1.032 (1.002-1.036); Urobilinogen Normal mg/dL (Less than 2)
--- NOTE | 2019-11-01 09:38 | CT ---
CT ABDOMEN AND PELVIS WITH IV CONTRAST: Date: 11/01/2019 INDICATION: Abdominal pain. Chest pain. Hip surgery 2 weeks ago. Comparison made to a CT abdomen and pelvis from 03/11/2016. FINDINGS: Lung bases show chronic lung parenchymal changes. No infiltrate or effusion. The liver, spleen, and pancreas appear unremarkable. Post cholecystectomy changes are noted. Mild harley iary duct dilatation is noted, similar to the prior exam. Stomach and duodenum unremarkable. Adrenal glands unremarkable. Kidneys appear unremarkable. No hydronephrosis or urinary obstruction. Small bowel loops normal caliber. Appendix not identified. Stool throughout the colon. Scattered dive rticula throughout the colon. Aorta is calcified without evidence of aneurysm. Images through the pelvis show a distended urinary bladder. Evidence of hysterectomy. Review of the osseous structures show three screws in the right femoral neck. There has been displace ment of the femoral head on the right which has apparently occurred since this surgery. The screws ar e not transfixing femoral head at this time. Recommend orthopedic consultation. IMPRESSION: 1. No acute intra-abdominal process. There is distended bladder. 2. Three screws in the right femoral neck are seen from recent surgery. There is now a subcapital f racture on the right with displacement of the femoral head which is no longer transfixed in anatomic alignment. This has occurred since the recent surgery and recommend patient's orthopedic surgeon be c onsulted. POS: [facility]YLER
--- NOTE | 2019-11-01 10:09 | RAD ---
Right hip 2 views HISTORY: Right hip pain. COMPARISON: 09/16/2019. FINDINGS: Subcapital fracture of the right hip is present with compression nails pulled from the femo ral head fragment and partially backed out the proximal femur approximately 2.3 cm.. There is superior overriding of fragments by one half shaft width. Contrast material evident within the urinary bladder. IMPRESSION : Backing out of the right hip compression nails with subcapital fracture and displacement right hip.
--- NOTE | 2019-11-01 10:10 | RAD ---
Right femur 2 views HISTORY: Pain. FINDINGS: Osseous structures are demineralized. Backing out of the newly placed right hip compression nails with displacement and overriding of the subcapital hip fracture again demonstrated, as detailed on dedicated hip radiograph exam. Remainder of the femur is intact. Medial femoral condyle p artially excluded from the lateral view. Contrast material evident within the urinary bladder. IMPRESSION : Backing out of the compression nails of the right hip with displacement and overriding of the subcapi melissa hip fracture.
[2019-11-01 11:36] LABS: Troponin I 0.079 ng/mL (< 0.028)
[2019-11-01] MEDS ORDERED: Nitroglycerin 0.4 MG TAB (25 Tab Bottle) PO PRN (11:54)
[2019-11-01] MEDS ORDERED: cloNIDine 0.1 MG TAB PO PRN (11:54)
[2019-11-01] MEDS ORDERED: Acetaminophen 325 MG TAB PO PRN (11:54)
[2019-11-01] MEDS ORDERED: Senokot S 8.6-50 MG TAB PO PRN (11:54)
--- NOTE | 2019-11-01 13:58 | CON ---
DATE OF CONSULTATION: 11/01/2019 HISTORY: Ms. Valadez is an 83-year-old female who had impacted femoral neck fracture of the right hip, which was repaired using 3 cannulated screws on September 15, approximately 6 weeks ago. The patient comes to the emergency room this morning because of chest pain. She and her state that she has had some pain in the right hip, but cannot tell exactly how long she has had increased pain since the surgery. She has not seen me in the office since the surgery. She had x-rays of the right hip, which showed that once impacted femoral neck fracture is now completely displaced and 3 screws were backed out. PHYSICAL EXAMINATION: Any intensive movement of the right hip causes pain. The small incision on the lateral aspect of the right thigh was well healed. The right lower extremity is neurovascularly intact. IMPRESSION: Displaced femoral neck fracture of the right hip with retained hardware. PLAN: The patient is being admitted for chest pain. She will need to have Cardiac, Pulmonary, rule out procedure. Once she is medically cleared for surgery, the patient will require removal of the cannulated screws and proximal femoral replacement utilizing a bipolar prosthesis. Medically, she definitely will not be ready today, probably not tomorrow, probably the earliest time that I will be able to operate on her right hip will be Monday. The patient and her 's questions were answered, and they agreed to the procedure. Job ID: [id number]
[2019-11-01 14:15] VITALS: BMI 20.2
[2019-11-01] MEDS ORDERED: Iopamidol 370 76% 100 ML VIAL ONE (14:23)
[2019-11-01 14:25] LABS: SARS-CoV-2 NAA Rapid Test Not Detected (NotDetected)
[2019-11-01] MEDS ORDERED: NS 0.9% w/ 40 MEQ KCL 1,000 ML IV SCH (14:30)
[2019-11-01 14:33] LABS: Troponin I 0.067 ng/mL (< 0.028)
[2019-11-01] MEDS ORDERED: Lorazepam 2 MG/ML VIAL SLOW IVP SCH (19:45)
[2019-11-01] MEDS: Enoxaparin Sodium 40 MG/0.4 ML SYRINGE SC SCH (20:25)
[2019-11-01] MEDS ORDERED: Famotidine 20 MG TAB PO SCH (21:00)
--- NOTE | 2019-11-01 21:20 | CON ---
DATE OF CONSULTATION: 11/01/2019 INDICATION FOR CONSULTATION: An 83-year-old female with a right hip fracture recently, which was repaired with prosthesis and screws. Apparently, the screws have become dislodged. The hip is unstable and we were asked to see her for cardiac clearance. However, she recently underwent this surgery, apparently did not have any cardiac issues. The patient is completely confused and is uncertain about the history. I have no indication that the patient had any known coronary disease in the past; however, there was a statement in one of the previous H and Ps stating the lady did have coronary disease, but I have no documentation of that. She denies any chest pain and she has no shortness of breath at least according to the patient this time, certainly her past medical historyis difficult to obtain and she is uncertain. She is obviously confused. Her cardiac enzymes were indeterminate, which could be due to just a type 2 myocardial infarction, which most likely is due to demand ischemia associated with the recent hip prosthesis dislocation again. Otherwise, I do not have any indication that she has coronary disease. Also she is not on any significant cardiac medications that would give me indication that she had any coronary disease in the past. There is no indication, if she has any heart failure. There has not been any echocardiogram performed that I can determine. There is also not any stress test done on her previous admissions. Her EKG shows a sinus rhythm with occasional PACs. I do not see any acute changes otherwise that would indicate ischemia or previous myocardial infarction. However, this is a very poor EKG, some of the leads are missing and she will need to have a repeat EKG prior to undergoing surgery, if there is not one done before in the emergency room, but there is not one in the chart to document that. At this time, she has no complaints. She has a sitter in the room due to her confusion and from evaluation of the old records and talking to the patient from what history I could get, her past medical history is significant for hypertension, hyperlipidemia, hypothyroidism. She has had some surgeries in the form of hysterectomy, bladder surgery, and eye surgeries. SOCIAL HISTORY: The patient lives in an assisted living with her . FAMILY HISTORY: Not obtainable. ALLERGIES: APPARENTLY, SHE IS ALLERGIC TO PENICILLIN AND PNEUMOCOCCAL VACCINES. MEDICATIONS: Prior to admission included: 1. Levothyroxine. 2. Aspirin. 3. Atorvastatin. 4. Multivitamins. 5. MiraLAX. 6. Wellbutrin. 7. At this time, she has also been placed on Pepcid and Lovenox. REVIEW OF SYSTEMS: She did not give me any significant complaints on the review of systems when I asked her; however the patient is confused and review of systems is unreliable. PAST MEDICAL HISTORY: She apparently on her recently on her previous admission was noted also to have COVID pneumonia and was treated at that time and apparently she survived without any significant sequela. PHYSICAL EXAMINATION: GENERAL: Reveals an elderly female who is in no acute distress at this time obviously confused. VITAL SIGNS: Her blood pressure is 165/74, earlier it was 120/63. She is afebrile. Heart rate is 106, respiratory rate is 20, O2 saturation is 97% on room air. HEENT: Unremarkable for any trauma. NECK: Carotid pulses are present. She has a left carotid bruit. CHEST: Clear to auscultation without rales, rhonchi, or wheezing. CARDIOVASCULAR: Revealed a regular rhythm at this time, slightly tachycardic. She has a very soft systolic murmur of the aortic area and also over the mitral valve area. ABDOMEN: Soft and nontender. Positive bowel sounds are present. EXTREMITIES: Show no clubbing or cyanosis. Pedal pulses are difficult to palpate, but popliteal pulses are present. She has a very small incision over the right lateral upper hip area. NEUROLOGIC: The patient is definitely confused and apparently has some history of encephalopathy in the past and likely has dementia. LABORATORY DATA: Sodium is 132, potassium 3.3, BUN was 10 with a creatinine of 0.67, chloride was 99 with a bicarb of 22, glucose was 97. Her hemoglobin was 13.4, hematocrit 40.8, WBC of 6.3, platelet count of 281,000. Troponin I on admission was 0.63, increased up to 0.079, is now decreased back down to 0.067. This is not indicative of any significant myocardial infarction most likely just type 2 myocardial infarction with demand ischemia associated with the present illness. IMPRESSION: 1. An 83-year-old likely demented female who has had a recent hip replacement on the right side due to a femoral neck fracture, which has now become apparently dislodged again and unstable and needs to undergo repair. She apparently did not have any cardiac issues during her most recent surgical procedure with the hip and likely would be safe to proceed. However, she has not had an echocardiogram, this would be advisable to evaluate for her left ventricular systolic function. I do not believe she will be a candidate to undergo stress testing due to her confusion and may also be very difficult just to obtain an echocardiogram without sedation. She seems to be very agitated at times. We will order the echocardiogram just to see whether or not she has any significant abnormalities, but we will continue. Also the with the elevated troponin, I do not see any previous history of coronary disease as has been documented in the notes. If there is other documentation, then we will need to review those records. 2. History of hypertension. The blood pressure has been elevated later on this afternoon, earlier today was stable. We will continue to monitor that and we would add low dose of a beta yfn or amlodipine, if necessary to control the blood pressure. 3. Dyslipidemia. We would continue her on her atorvastatin. 4. Dementia. This will be dealt with by the primary care service. 5. Hypothyroidism. This is also noted in her records and she has been on levothyroxine. We would continue that medication. Further recommendations will depend on the results of the echocardiogram. However, unless she has a significant decrease in ejection fraction, then I would proceed with her surgical correction of the hip without pursuing a stress test in this lady, which would not give us much benefit. Job ID: [id number]
[2019-11-02] MEDS: ALPRAZolam 0.25 MG TAB PO PRN ×3 (00:51→20:15)
--- NOTE | 2019-11-02 01:05 | HP ---
The patient was seen and examined on 11/01/2019. CHIEF COMPLAINT: Chest discomfort. HISTORY OF PRESENT ILLNESS: The patient is an 83-year-old female with hypertension dyslipidemia and dementia who was brought into the emergency room with chest discomfort. Please note, the patient is a poor historian and not much information is available from the patient. The was present in the emergency room. The chest discomfort was substernal without further details. She reported that she never had this kind of pain before. No cough, shortness of breath, wheezing, lightheadedness, dizziness, or syncope reported. The pain was sharp in nature per the ER report. In the emergency room, initial vital signs showed temperature 98.1 with pulse rate of 91, respirations of 19 with blood pressure of 141/76, O2 saturation of 100% on room air. CT angiogram of the chest was negative for pulmonary embolism. EKG showed sinus rhythm with nonspecific ST-T wave changes. She received morphine and Zofran in the emergency room. She was recently hospitalized for femoral neck fracture. PAST MEDICAL HISTORY: 1. Hypertension. 2. Hypothyroidism. 3. Dyslipidemia. 4. GERD. 5. Dementia. 6. Visual abnormalities. PAST SURGICAL HISTORY: 1. Recent right femur femoral neck fracture pinning. 2. Hysterectomy. 3. section. 4. Bladder surgery. ALLERGIES: THE PATIENT IS ALLERGIC TO PENICILLIN AND PNEUMOCOCCAL VACCINE. CURRENT HOME MEDICATIONS: We will try to obtain from the family when they arrive. FAMILY HISTORY: Cannot be obtained from the patient due to current cognitive status. REVIEW OF SYSTEMS: Cannot be obtained from the patient due to current cognitive status. SOCIAL HISTORY: The patient currently lives in an independent living facility. Further details unavailable. No tobacco, alcohol, or drug use. Full code. DPOA - . PHYSICAL EXAMINATION: VITAL SIGNS: As discussed above. GENERAL: An 83-year-old female with altered mentation. Sitter at the bedside. HEENT: Head, atraumatic and normocephalic. Sclerae anicteric. No oral lesion. NECK: Supple. No JVD. No carotid bruit. LUNGS: Clear to auscultation bilaterally. No wheezing, rales, or rhonchi. HEART: S1 and S2 present. Regular rate and rhythm. No rubs or gallops. ABDOMEN: Soft. Bowel sounds present. No rebound or guarding. No costovertebral angle tenderness. EXTREMITIES: No edema or calf tenderness. NEUROLOGIC AND PSYCHIATRY: Examination is limited due to current mentation. MUSCULOSKELETAL: No joint swelling tenderness. LYMPH NODES: No palpable lymph node in the neck. SKIN: Warm and dry. LABORATORY FINDINGS: CBC showed WBC 6.3 with hemoglobin 13.4, hematocrit 40.8 with platelet count 281, next D-dimer was 5.1. Chemistry showed sodium 132, with potassium 3.3, chloride 99, bicarb 22, BUN of 10, creatinine 0.67. LFTs in normal range. Urinalysis was negative. COVID testing was negative. IMAGIN. CT angiogram of the chest was negative for pulmonary embolism. 2. CT scan of the abdomen and pelvis with contrast was negative for acute findings. There is now a subcapital fracture in the right with displacement of the femoral head. 3. Chest x-ray by my review was negative for acute findings. IMPRESSION: 1. Chest discomfort, rule out acute coronary syndrome. 2. Indeterminate troponins. 3. Displaced femoral neck fracture. 4. Hypertension. 5. Dyslipidemia. 6. Hypothyroidism. 7. Hypokalemia. 8. Hyponatremia. 9. Dementia. 10. Chronic kidney disease, stage 2. PLAN: The patient will be monitored in the telemetry unit. Orthopedic has been consulted for displaced femoral neck fracture of the right. The orthopedic also requested a cardiology evaluation for preop clearance. An echocardiogram will be obtained. Pulmonary embolism has been ruled out. We will monitor troponins. We will replace electrolytes. We will recheck labs in a.m. Further cardiology evaluation per Cardiology. We will confirm home medications and start accordingly. We will discuss the plan of care with the family when they arrive. Job ID: [id number] [facility]
[2019-11-02 04:43] LABS: #Basophils 0.1 thou/uL (0.0-0.2); #Eosinphils 0.2 thou/uL (0.0-0.7); #Lymphocytes 1.6 thou/uL (1.20-3.40); #Monocytes 0.6 thou/uL (0.11-0.59); #Neutrophils 4.5 thou/uL (1.40-6.50); %Basophils 1.1 % (0.0-1.0); %Eosinophils 2.8 % (0.0-10.0); %Lymphocytes 22.6 % (21.0-51.0); %Neutrophils 64.6 % (42.0-75.0); Hemoglobin 13.1 g/dL (12.0-16.0); Mean Corpuscular HGB CONC 32.3 g/dL (32.0-36.0); Mean Corpuscular Hemoglobin 29.4 pg (27.0-31.0); Mean Platelet Volume 9.7 fL (7.4-10.4); Platelet Count 278 thou/uL (130-400); RBC Distribution Width 16.3 % (11.5-14.5); Red Blood Cell (RBC) Count 4.44 mill/uL (4.20-5.40); White Blood Cell (WBC) Count 6.9 thou/uL (4.8-10.8)
[2019-11-02 04:57] LABS: Anion Gap 15 mmol/L (10-20); BUN (Urea Nitrogen) 6 mg/dL (9.8-20.1); Calc. Creatinine Clearance 66 mL/min (70-130); Calcium 8.3 mg/dL (7.8-10.44); Carbon Dioxide 21 mmol/L (23-31); Chloride 103 mmol/L (98-107); Estimated GFR-MDRD Greater than 90; Glucose 86 mg/dL (83-110); Potassium 3.7 mmol/L (3.5-5.1); Sodium 135 mmol/L (136-145)
[2019-11-02] MEDS: Acetaminophen 500 MG TAB PO SCH ×4 (06:20→20:14)
[2019-11-02] MEDS: Levothyroxine Sodium 25 MCG TAB PO SCH (06:20)
[2019-11-02] MEDS: Cyanocobalamin (Vitamin B-12) 1,000 MCG TAB PO SCH (08:18)
[2019-11-02] MEDS: Senokot S 8.6-50 MG TAB PO SCH ×2 (08:18→20:17)
[2019-11-02] MEDS: Multivitamin W/ Minerals 1 TAB PO SCH (08:19)
[2019-11-02] MEDS: Aspirin 81 mg Enteric Coated Tablet PO SCH (08:19)
[2019-11-02] MEDS: Polyethylene Glycol 3350 17 GM Packet PO SCH (08:19)
[2019-11-02] MEDS: Folic Acid 1 MG TAB PO SCH (08:19)
[2019-11-02] MEDS: Famotidine 20 MG TAB PO SCH ×2 (08:59→20:17)
[2019-11-02] MEDS ORDERED: Enoxaparin Sodium 40 MG/0.4 ML SYRINGE SC SCH (09:00)
[2019-11-02] MEDS ORDERED: DORZOLAMIDE EA EYE SCH (09:00)
[2019-11-02] MEDS ORDERED: Aspirin 325 mg Enteric Coated Tablet PO SCH (09:00)
[2019-11-02] MEDS ORDERED: TIMOLOL EA EYE SCH (09:00)
[2019-11-02] MEDS ORDERED: Multivit, Therapeutic 1 TAB PO SCH (09:00)
[2019-11-02] MEDS: DorzolamidE/Timolol 2%/0.5% Ophth Soln 10 ml Bottle EA EYE SCH ×2 (09:51→20:18)
--- NOTE | 2019-11-02 12:07 | PDOC.HOSPP ---
- Subjective Encounter Date: 11/02/19 Encounter Time: 08:40 Subjective: awake, is not oriented sitter at bedside is not complaining of pain or sob - Objective Vital Signs & Weight: Vital Signs (12 hours) Temp Pulse Resp BP BP Pulse Ox 11/02/19 11:16 98.2 F 87 20 168/81 H 96 11/02/19 07:10 98.8 F 96 20 109/66 98 11/02/19 04:29 97 11/02/19 04:00 89 18 111/60 11/02/19 03:00 98.8 F 91 18 105/55 L 96 Weight Admit Weight 112 lb 14.4 oz Weight 114 lb 9.6 oz I&O: 11/01/19 11/02/19 11/03/19 06:59 06:59 06:59 Intake Total 1000 Output Total 550 Balance 450 Result Diagrams: 11/02/19 04:28 11/02/19 04:28 Hospitalist ROS - Medication Medications: Active Medications Generic Name Dose Route Start Last Admin Trade Name Freq PRN Reason Stop Dose Admin Acetaminophen 1,000 mg 11/02/19 06:00 11/02/19 06:20 Tylenol PO 1,000 mg Q6HR BELIA Administration Alprazolam 0.25 mg 11/02/19 00:25 11/02/19 00:51 Xanax PO 0.25 mg BID PRN Administration Anxiety Aspirin 81 mg 11/02/19 09:00 11/02/19 08:19 Ecotrin PO 81 mg DAILY BELIA Administration Cyanocobalamin 1,000 mcg 11/02/19 09:00 11/02/19 08:18 Vitamin B-12 PO 1,000 mcg DAILY [facility]IA Administration Dorzolamide/Timolol 1 drop 11/02/19 09:00 11/02/19 09:51 Cosopt 2-0.5% Ophth Soln EA EYE Not Given BID BELIA Enoxaparin Sodium 40 mg 11/01/19 21:00 11/01/19 20:25 Lovenox SC 40 mg 2100 BELIA Administration Famotidine 20 mg 11/02/19 09:00 11/02/19 08:59 Pepcid PO Not Given BID BELIA Folic Acid 1 mg 11/02/19 09:00 11/02/19 08:19 Folvite PO 1 mg DAILY [facility]IA Administration Iron/Minerals/Multivitamins 1 tab 11/02/19 09:00 11/02/19 08:19 Theragran M PO 1 tab DAILY [facility] Administration Levothyroxine Sodium 12.5 mcg 11/02/19 06:00 11/02/19 06:20 Synthroid PO 12.5 mcg 0600 [facility]IA Administration Polyethylene Glycol 17 gm 11/02/19 09:00 11/02/19 08:19 Miralax PO Not Given DAILY [facility] Senna/Docusate Sodium 2 tab 11/02/19 09:00 11/02/19 08:18 Senokot S PO 2 tab BID BELIA Administration Sodium Chloride 10 ml 11/01/19 11:54 11/01/19 20:29 Flush - Normal Saline IVF 10 ml PRN PRN Administration Saline Flush - Exam General Appearance: awake alert Eye: PERRL, anicteric sclera ENT: no oropharyngeal lesions, dry oral mucosa Neck: supple, no JVD Heart: RRR, no murmur Respiratory: no wheezes, no rales Gastrointestinal: soft, non-tender, non-distended, normal bowel sounds Extremities: no cyanosis, no edema Neurological: cranial nerve grossly intact, no focal deficits Hosp A/P (1) Fracture of right hip Code(s): S72.001A - FRACTURE OF UNSP PART OF NECK OF RIGHT FEMUR, INIT Status : Acute Qualifiers: Encounter type: subsequent encounter Fracture type: closed (2) Dyslipidemia Code(s): E78.5 - HYPERLIPIDEMIA, UNSPECIFIED Status: Chronic (3) HTN (hypertension) Code(s): I10 - ESSENTIAL (PRIMARY) HYPERTENSION Status: Chronic Qualifiers: (4) Hypothyroidism Code(s): E03.9 - HYPOTHYROIDISM, UNSPECIFIED Status: Chronic Qualifiers: Hypothyroidism type: unspecified Qualified Code(s): E03.9 - Hypothyroidism , unspecified (5) Dementia Code(s): F03.90 - UNSPECIFIED DEMENTIA WITHOUT BEHAVIORAL DISTURBANCE Status: Chronic Qualifiers: Dementia type: unspecified type Dementia behavioral disturbance: with behavioral disturbance Qualified Code(s): F03.91 - Unspecified dementia with behavioral disturbance - Plan echo shows normal ef with no major valvular issues has been seen by yesterday surgery for right hip is planned for tomorrow by is cleared with acceptable risk to relieve pain and morbidity by not doing one will f/u continue current meds will likely need skilled placement post discharge plan
[2019-11-02] MEDS ORDERED: Clindamycin/D5W 900 MG in Premix Bag 1 BAG IVPB SCH (12:30)
--- NOTE | 2019-11-02 12:33 | PRG ---
DATE OF SERVICE: 11/02/2019 SUBJECTIVE: Ms. Valadez was evaluated by Dr. Braun, who sees no significant cardiac problems. Her echocardiogram showed an ejection fraction of 55% to 60%. Her laboratories have been good, and unless something changes, the patient appears to be stable for surgery for tomorrow. OBJECTIVE: VITAL SIGNS: The patient has been afebrile, pulse 87, respiratory rate 20, O2 saturation 96% on room air, blood pressure 168/81. LABORATORY DATA: From today show white count of 6.9, hemoglobin 13.1, hematocrit 40.4. Sodium baseline low at 135. Remaining values in the chemistries were normal. UA was normal. COVID was negative. The patient will be set it up for surgery tomorrow to have the pins removed and perform a proximal femur replacement, plan on using a bipolar prosthesis. I discussed this with the patient and we will also discuss this with the family. Job ID: [id number]
[2019-11-02] MEDS: Bupropion 150 MG XL TAB PO SCH (12:38)
--- NOTE | 2019-11-02 12:51 | PDOC.CPN ---
- Subjective Date: 11/02/19 Time: 12:56 Interval history: The pt seen and examined. No overnight events. No cardiac complaints. She has a sitter at bedside - Objective Allergies/Adverse Reactions: Allergies Allergy/AdvReac Type Severity Reaction Status Date / Time Penicillins Allergy Verified 11/01/19 14:29 pneumococcal vaccine Allergy Verified 11/01/19 14:29 Visit Medications: Current Medications Acetaminophen (Tylenol) 1,000 mg PO Q6HR [facility] Last Admin: 11/02/19 12:38 Dose: 1,000 mg Alprazolam (Xanax) 0.25 mg PO BID PRN PRN Reason: Anxiety Last Admin: 11/02/19 12:38 Dose: 0.25 mg Aspirin (Ecotrin) 81 mg PO DAILY [facility] Last Admin: 11/02/19 08:19 Dose: 81 mg Bupropion HCl (Wellbutrin Xl) 150 mg PO 1200 [facility] Last Admin: 11/02/19 12:38 Dose: 150 mg Calcium Carbonate (Tums) 1,000 mg PO Q4H PRN PRN Reason: Heartburn or Indigestion Clonidine (Catapres) 0.1 mg PO Q4H PRN PRN Reason: SBP Greater Than 180 Cyanocobalamin (Vitamin B-12) 1,000 mcg PO DAILY [facility] Last Admin: 11/02/19 08:18 Dose: 1,000 mcg Dorzolamide/Timolol (Cosopt 2-0.5% Ophth Soln) 1 drop EA EYE BID [facility] Last Admin: 11/02/19 09:51 Dose: Not Given Enoxaparin Sodium (Lovenox) 40 mg SC 2100 [facility] Last Admin: 11/01/19 20:25 Dose: 40 mg Erythromycin (Erythromycin Base 0.5% Oint) 0 gm EA EYE HS [facility] Famotidine (Pepcid) 20 mg PO BID [facility] Last Admin: 11/02/19 08:59 Dose: Not Given Folic Acid (Folvite) 1 mg PO DAILY [facility] Last Admin: 11/02/19 08:19 Dose: 1 mg Clindamycin Phosphate/Dextrose (900 mg/ Device) 50 mls @ 100 mls/hr IVPB ONCALL -OR BELIA Iron/Minerals/Multivitamins (Theragran M) 1 tab PO DAILY [facility] Last Admin: 11/02/19 08:19 Dose: 1 tab Levothyroxine Sodium (Synthroid) 12.5 mcg PO 0600 [facility] Last Admin: 11/02/19 06:20 Dose: 12.5 mcg Nitroglycerin (Nitrostat) 0.4 mg PO Q5MIN PRN PRN Reason: Chest Pain Ondansetron HCl (Zofran Odt) 4 mg PO Q6H PRN PRN Reason: Nausea Dexamethasone/Pf [ Dexycu 9% Vial] 1 Drop 0 each EA EYE DAILY [facility] Tacrolimus-Pf 1 Drop 0 each EA EYE TID [facility] Polyethylene Glycol (Miralax) 17 gm PO DAILY [facility] Last Admin: 11/02/19 08:19 Dose: Not Given Senna/Docusate Sodium (Senokot S) 2 tab PO BID PRN PRN Reason: Constipation Senna/Docusate Sodium (Senokot S) 2 tab PO BID [facility] Last Admin: 11/02/19 08:18 Dose: 2 tab Simethicone (Mylicon Chewable) 80 mg PO QIDPRN PRN PRN Reason: Gas Pain Sodium Chloride (Flush - Normal Saline) 10 ml IVF PRN PRN PRN Reason: Saline Flush Last Admin: 11/01/19 20:29 Dose: 10 ml Sodium Chloride (Flush - Normal Saline) 10 ml IVF PRN PRN PRN Reason: Saline Flush Vital Signs & Weight: Vital Signs Temp Pulse Resp BP BP Pulse Ox 11/02/19 11:16 98.2 F 87 20 168/81 H 96 11/02/19 07:10 98.8 F 96 20 109/66 98 11/02/19 04:29 97 11/02/19 04:00 89 18 111/60 11/02/19 03:00 98.8 F 91 18 105/55 L 96 Admit Weight 112 lb 14.4 oz Weight 114 lb 9.6 oz - Physical Exam General: other (confused) Cardiac: regular rate and rhythm, S1/S2 Lungs: decreased breath sounds Extremities: no edema - Labs Result Diagrams: 11/02/19 04:28 11/02/19 04:28 Troponin/CKMB CK-MB (CK-2) 3.0 ng/mL (0-6.6) 11/01/19 07:58 Troponin I 0.067 ng/mL (< 0.028) H 11/01/19 13:43 - Telemetry Sinus rhythms and dysrhythmias: sinus rhythm - Assessment/Plan Assessment/Plan: 1. Rt femoral neck fx with dislocation. - Echo on 11/01/2019 with EF 55-60% and grade I dd with normal Aortic valve and mitral valve;Plan for the sx tomorrow by 2. HTN - stable 3. HLD - she has hx of HLD; however, according her home med list, she is not on any statin 4. Hypothyroidism 5. Dementia MAR reviewed * Echo on 11/01/2019 with EF 55-60%, grade I dd, trace TR Pt. seen and eval. by me. I agree with the A/P by the HOME HEALTH SPEECH THERAPIST.Pt. is very confused. Chest clear. RRR. For surgery tomorrow. [email or web address]
[2019-11-02] MEDS ORDERED: Haloperidol Lactate 5 MG/ML VIAL IM PRN (14:23)
[2019-11-02] MEDS ORDERED: Haloperidol 1 MG TAB PO SCH (14:30)
[2019-11-02] MEDS: Calcium Carbonate 500 MG ChewTAB PO PRN (18:07)
[2019-11-02] MEDS: Enoxaparin Sodium 40 MG/0.4 ML SYRINGE SC SCH (20:17)
[2019-11-02] MEDS: Erythromycin Base 0.5% Oint 1 GM TUBE EA EYE SCH (20:18)
[2019-11-02] MEDS ORDERED: Morphine 2 MG/ML VIAL SLOW IVP SCH (21:00)
[2019-11-03] MEDS: Acetaminophen 500 MG TAB PO SCH ×4 (05:51→23:19)
[2019-11-03] MEDS: Levothyroxine Sodium 25 MCG TAB PO SCH (05:51)
[2019-11-03] MEDS: DorzolamidE/Timolol 2%/0.5% Ophth Soln 10 ml Bottle EA EYE SCH ×2 (09:11→21:11)
[2019-11-03] MEDS: Cyanocobalamin (Vitamin B-12) 1,000 MCG TAB PO SCH (09:11)
[2019-11-03] MEDS: Aspirin 81 mg Enteric Coated Tablet PO SCH (09:11)
[2019-11-03] MEDS: Folic Acid 1 MG TAB PO SCH (09:12)
[2019-11-03] MEDS: Polyethylene Glycol 3350 17 GM Packet PO SCH (09:12)
[2019-11-03] MEDS: Senokot S 8.6-50 MG TAB PO SCH ×2 (09:12→21:12)
[2019-11-03] MEDS: Famotidine 20 MG TAB PO SCH ×2 (09:12→19:52)
[2019-11-03] MEDS: Multivitamin W/ Minerals 1 TAB PO SCH (09:12)
[2019-11-03] MEDS ORDERED: Clindamycin/D5W 900 mg/50 ml Premix Bag ONE (09:51)
[2019-11-03] MEDS ORDERED: Phenylephrine 10 MG/ML VIAL ONE (09:59)
[2019-11-03] MEDS ORDERED: Fentanyl 100 MCG/2 ML VIAL ONE ×3 (09:59→12:27)
[2019-11-03] MEDS ORDERED: Rocuronium Bromide 10 MG/ML (10ML VIAL) ONE (11:38)
[2019-11-03] MEDS ORDERED: Lidocaine 1% PF 5 ML VIAL ONE (11:38)
[2019-11-03] MEDS ORDERED: PHENYLEPHRINE-NS 100 MCG/ML 10 ML SYRINGE ONE (11:38)
[2019-11-03] MEDS ORDERED: PROPOFOL 200 MG/20 ML VIAL ONE (11:38)
[2019-11-03] MEDS ORDERED: EPHEDRINE 25 MG/5 ML SYRINGE ONE (11:38)
[2019-11-03] MEDS ORDERED: Glycopyrrolate 0.2 MG/ML 5 ML SYRINGE ONE (11:38)
[2019-11-03] MEDS ORDERED: Morphine 2 MG/ML VIAL SLOW IVP PRN (11:44)
[2019-11-03] MEDS ORDERED: Morphine 4 MG/ML VIAL SLOW IVP PRN (11:44)
[2019-11-03] MEDS ORDERED: Promethazine HCl 25 MG/ML VIAL IM PRN (11:45)
[2019-11-03] MEDS ORDERED: Ondansetron HCl/PF 4 MG/2 ML Vial IVP PRN (11:45)
[2019-11-03] MEDS ORDERED: Promethazine HCl 25 MG/ML VIAL SLOW IVP PRN (11:45)
--- NOTE | 2019-11-03 12:16 | RAD ---
Radiograph right hip 2 views: 11/03/2019 HISTORY: 83-year-old female status post surgery for acute right subcapital femoral neck fracture. COMPARISON: 11/01/2019 FINDINGS: The 3 right proximal lack screws have been removed. The fractured femoral head and neck have been rem mal and replaced with a bipolar prosthesis in apparently satisfactory position. Lateral skin lisette and overlying subcutaneous emphysema. IMPRESSION: Immediately status post right bipolar hip replacement arthroplasty.
[2019-11-03] MEDS: Bupropion 150 MG XL TAB PO SCH (13:04)
[2019-11-03] MEDS: Ketorolac Tromethamine 30 MG/ML VIAL IVP SCH ×3 (13:04→23:19)
[2019-11-03] MEDS: Ondansetron ODT 4 MG TAB PO PRN ×2 (13:57→19:53)
[2019-11-03] MEDS: Clindamycin/D5W 900 MG in Premix Bag 1 BAG IVPB SCH ×2 (15:26→21:53)
--- NOTE | 2019-11-03 15:29 | PDOC.HOSPP ---
- Subjective Encounter Date: 11/03/19 Encounter Time: 15:00 Subjective: is post of right hip surgery has pain at surgical site, no sob is calm and on bed now - Objective Vital Signs & Weight: Vital Signs (12 hours) Temp Pulse Resp BP Pulse Ox 11/03/19 12:50 98.1 F 102 H 16 108/70 96 11/03/19 07:09 98.2 F 110 H 20 192/84 H 94 L 11/03/19 04:00 122 H 132/84 Weight Admit Weight 112 lb 14.4 oz Weight 114 lb 9.6 oz I&O: 11/02/19 11/03/19 11/04/19 06:59 06:59 06:59 Intake Total 1000 1000 Output Total 550 Balance 450 1000 Result Diagrams: 11/02/19 04:28 11/02/19 04:28 Hospitalist ROS - Medication Medications: Active Medications Generic Name Dose Route Start Last Admin Trade Name Freq PRN Reason Stop Dose Admin Acetaminophen 1,000 mg 11/02/19 06:00 11/03/19 13:03 Tylenol PO 1,000 mg Q6HR [facility]IA Administration Alprazolam 0.25 mg 11/02/19 00:25 11/02/19 20:15 Xanax PO 0.25 mg BID PRN Administration Anxiety Aspirin 81 mg 11/02/19 09:00 11/03/19 09:11 Ecotrin PO Not Given DAILY [facility]IA Bupropion HCl 150 mg 11/02/19 12:00 11/03/19 13:04 Wellbutrin Xl PO 150 mg 1200 [facility] Administration Calcium Carbonate 1,000 mg 11/01/19 11:54 11/02/19 18:07 Tums PO 1,000 mg Q4H PRN Administration Heartburn or Indigestion Cyanocobalamin 1,000 mcg 11/02/19 09:00 11/03/19 09:11 Vitamin B-12 PO Not Given DAILY [facility] Dorzolamide/Timolol 1 drop 11/02/19 09:00 11/03/19 09:11 Cosopt 2-0.5% Ophth Soln EA EYE Not Given BID [facility]IA Enoxaparin Sodium 40 mg 11/01/19 21:00 11/02/19 20:17 Lovenox SC 40 mg 2100 [facility]IA Administration Erythromycin 0 gm 11/02/19 21:00 11/02/19 20:18 Erythromycin Base 0.5% Oint EA EYE Not Given HS [facility]IA Famotidine 20 mg 11/02/19 09:00 11/03/19 09:12 Pepcid PO Not Given BID [facility] Folic Acid 1 mg 11/02/19 09:00 11/03/19 09:12 Folvite PO Not Given DAILY [facility] Iron/Minerals/Multivitamins 1 tab 11/02/19 09:00 11/03/19 09:12 Theragran M PO Not Given DAILY [facility] Ketorolac Tromethamine 15 mg 11/03/19 12:00 11/03/19 13:04 Toradol IVP 11/05/19 12:01 15 mg Q6HR [facility]IA Administration Levothyroxine Sodium 12.5 mcg 11/02/19 06:00 11/03/19 05:51 Synthroid PO 12.5 mcg 0600 [facility]IA Administration Ondansetron HCl 4 mg 11/02/19 00:25 11/03/19 13:57 Zofran Odt PO 4 mg Q6H PRN Administration Nausea Polyethylene Glycol 17 gm 11/02/19 09:00 11/03/19 09:12 Miralax PO Not Given DAILY [facility] Senna/Docusate Sodium 2 tab 11/02/19 09:00 11/03/19 09:12 Senokot S PO Not Given BID [facility] Sodium Chloride 10 ml 11/01/19 11:54 11/01/19 20:29 Flush - Normal Saline IVF 10 ml PRN PRN Administration Saline Flush - Exam Eye: PERRL, anicteric sclera ENT: no oropharyngeal lesions, dry oral mucosa Neck: supple, no JVD Heart: RRR, no murmur Respiratory: no wheezes, no rales Gastrointestinal: soft, non-tender, non-distended, normal bowel sounds Extremities: no cyanosis, no edema Neurological: cranial nerve grossly intact, no focal deficits Hosp A/P (1) Fracture of right hip Code(s): S72.001A - FRACTURE OF UNSP PART OF NECK OF RIGHT FEMUR, INIT Status : Acute Qualifiers: Encounter type: subsequent encounter Fracture type: closed (2) Dyslipidemia Code(s): E78.5 - HYPERLIPIDEMIA, UNSPECIFIED Status: Chronic (3) HTN (hypertension) Code(s): I10 - ESSENTIAL (PRIMARY) HYPERTENSION Status: Chronic Qualifiers: (4) Hypothyroidism Code(s): E03.9 - HYPOTHYROIDISM, UNSPECIFIED Status: Chronic Qualifiers: Hypothyroidism type: unspecified Qualified Code(s): E03.9 - Hypothyroidism , unspecified (5) Dementia Code(s): F03.90 - UNSPECIFIED DEMENTIA WITHOUT BEHAVIORAL DISTURBANCE Status: Chronic Qualifiers: Dementia type: unspecified type Dementia behavioral disturbance: with behavioral disturbance Qualified Code(s): F03.91 - Unspecified dementia with behavioral disturbance - Plan echo shows normal ef with no major valvular issues had surgery for right hip today by post op doing well, is drinking fluids encourage po food intake continue current meds will likely need skilled placement post discharge plan
[2019-11-03] MEDS: traMADol HCl 50 MG TAB PO PRN (17:30)
--- NOTE | 2019-11-03 17:35 | PDOC.CPN ---
- Subjective Date: 11/03/19 Time: 17:36 Interval history: The pt seen and examined. No overnight events. No cardiac complaints. She has a sitter at bedside - Objective Allergies/Adverse Reactions: Allergies Allergy/AdvReac Type Severity Reaction Status Date / Time Penicillins Allergy Verified 11/01/19 14:29 pneumococcal vaccine Allergy Verified 11/01/19 14:29 Visit Medications: Current Medications Acetaminophen (Tylenol) 1,000 mg PO Q6HR [facility] Last Admin: 11/03/19 17:30 Dose: 1,000 mg Alprazolam (Xanax) 0.25 mg PO BID PRN PRN Reason: Anxiety Last Admin: 11/02/19 20:15 Dose: 0.25 mg Aspirin (Ecotrin) 81 mg PO DAILY [facility] Last Admin: 11/03/19 09:11 Dose: Not Given Bupropion HCl (Wellbutrin Xl) 150 mg PO 1200 [facility] Last Admin: 11/03/19 13:04 Dose: 150 mg Calcium Carbonate (Tums) 1,000 mg PO Q4H PRN PRN Reason: Heartburn or Indigestion Last Admin: 11/02/19 18:07 Dose: 1,000 mg Clonidine (Catapres) 0.1 mg PO Q4H PRN PRN Reason: SBP Greater Than 180 Cyanocobalamin (Vitamin B-12) 1,000 mcg PO DAILY [facility] Last Admin: 11/03/19 09:11 Dose: Not Given Dorzolamide/Timolol (Cosopt 2-0.5% Ophth Soln) 1 drop EA EYE BID [facility] Last Admin: 11/03/19 09:11 Dose: Not Given Enoxaparin Sodium (Lovenox) 40 mg SC 2100 [facility] Last Admin: 11/02/19 20:17 Dose: 40 mg Erythromycin (Erythromycin Base 0.5% Oint) 0 gm EA EYE HS [facility] Last Admin: 11/02/19 20:18 Dose: Not Given Famotidine (Pepcid) 20 mg PO BID [facility] Last Admin: 11/03/19 09:12 Dose: Not Given Folic Acid (Folvite) 1 mg PO DAILY [facility] Last Admin: 11/03/19 09:12 Dose: Not Given Clindamycin Phosphate/Dextrose (900 mg/ Device) 50 mls @ 100 mls/hr IVPB 0400, 1000,1600,2200 [facility] Stop: 11/03/19 22:29 Last Admin: 11/03/19 15:26 Dose: 50 mls Iron/Minerals/Multivitamins (Theragran M) 1 tab PO DAILY [facility] Last Admin: 11/03/19 09:12 Dose: Not Given Ketorolac Tromethamine (Toradol) 15 mg IVP Q6HR [facility] Stop: 11/05/19 12:01 Last Admin: 11/03/19 17:30 Dose: 15 mg Levothyroxine Sodium (Synthroid) 12.5 mcg PO 0600 [facility] Last Admin: 11/03/19 05:51 Dose: 12.5 mcg Morphine Sulfate (Morphine) 2 mg SLOW IVP Q2H PRN PRN Reason: Mild Pain (1-3) Morphine Sulfate (Morphine) 4 mg SLOW IVP Q2H PRN PRN Reason: Moderate Pain (4-6) Nitroglycerin (Nitrostat) 0.4 mg PO Q5MIN PRN PRN Reason: Chest Pain Ondansetron HCl (Zofran Odt) 4 mg PO Q6H PRN PRN Reason: Nausea Last Admin: 11/03/19 13:57 Dose: 4 mg Dexamethasone/Pf [ Dexycu 9% Vial] 1 Drop 0 each EA EYE DAILY [facility] Tacrolimus-Pf 1 Drop 0 each EA EYE TID [facility] Polyethylene Glycol (Miralax) 17 gm PO DAILY [facility] Last Admin: 11/03/19 09:12 Dose: Not Given Senna/Docusate Sodium (Senokot S) 2 tab PO BID PRN PRN Reason: Constipation Senna/Docusate Sodium (Senokot S) 2 tab PO BID [facility] Last Admin: 11/03/19 09:12 Dose: Not Given Simethicone (Mylicon Chewable) 80 mg PO QIDPRN PRN PRN Reason: Gas Pain Sodium Chloride (Flush - Normal Saline) 10 ml IVF PRN PRN PRN Reason: Saline Flush Last Admin: 11/01/19 20:29 Dose: 10 ml Sodium Chloride (Flush - Normal Saline) 10 ml IVF PRN PRN PRN Reason: Saline Flush Sodium Chloride (Flush - Normal Saline) 10 ml IVF PRN PRN PRN Reason: Saline Flush Tramadol HCl (Ultram) 100 mg PO Q6H PRN PRN Reason: Moderate Pain (4-6) Last Admin: 11/03/19 17:30 Dose: 100 mg Vital Signs & Weight: Vital Signs Temp Pulse Resp BP Pulse Ox 11/03/19 15:28 98.1 F 92 16 103/64 96 11/03/19 12:50 98.1 F 102 H 16 108/70 96 11/03/19 07:09 98.2 F 110 H 20 192/84 H 94 L Admit Weight 112 lb 14.4 oz Weight 114 lb 9.6 oz - Physical Exam General: other (confused; sitter at bedside) Cardiac: regular rate and rhythm Lungs: decreased breath sounds - Labs Result Diagrams: 11/02/19 04:28 11/02/19 04:28 Troponin/CKMB CK-MB (CK-2) 3.0 ng/mL (0-6.6) 11/01/19 07:58 Troponin I 0.067 ng/mL (< 0.028) H 11/01/19 13:43 - Assessment/Plan Assessment/Plan: 1. Rt femoral neck fx with dislocation with s/p Rt hip replacement on 11/03/2019 2. HTN - stable 3. HLD - she has hx of HLD; however, according her home med list, she is not on any statin 4. Hypothyroidism 5. Dementia MAR reviewed * Echo on 11/01/2019 with EF 55-60%, grade I dd, trace TR
--- NOTE | 2019-11-03 19:07 | OP ---
DATE OF PROCEDURE: 11/03/2019 PREOPERATIVE DIAGNOSIS: The patient is status post multiple pinning of an impacted femoral neck fracture, now with a displaced femoral neck fracture. POSTOPERATIVE DIAGNOSIS: The patient is status post multiple pinning of an impacted femoral neck fracture, now with a displaced femoral neck fracture. PROCEDURES PERFORMED: 1. Removal of failed hardware from the right hip. 2. of the right hip. ANESTHESIA: General. DESCRIPTION OF PROCEDURE: The patient was given preoperative IV antibiotics, taken to the operating room, placed in the supine position. Satisfactory general anesthesia was performed. The patient was then placed in the left lateral decubitus position. All bony prominences were well padded, and the right hip and lower extremity were sterilely prepped and draped in usual fashion. A longitudinal incision was made over the lateral aspect of the hip centered over the greater trochanter. Approximately 6 inches in length, the three cannulated 6.5 screws were located and were removed. An anterolateral approach was made to the hip joint. The femoral head was somewhat fragmented. It was removed. The majority of it was still intact and was measured at 45 mm in diameter. The fragments of bone and articular cartilage that was still in and around the acetabulum were removed. The posterior capsule was divided. The proximal femur was then prepared using [employer] instrumentation initially using a box osteotome, then a hand Charnley reamer, then a lateralizer. Then, it was sequentially rasped up to a size 9 with the standard offset. The trials were inserted after the calcar was reamed down to the prosthesis. The best fit was a 45 mm head with a -3.5 neck, 28 mm femoral head and a size 9 standard offset stem. This allowed for good range of motion of the hip. The trials were removed. The hip joint was copiously irrigated with antibiotic solution using the high-speed route salesperson, and the prosthesis was then inserted. Again, it was the [employer] standard offset size 9 porous-coated femoral stem with a -3.5 mm 28 mm femoral head with a 48 mm bipolar, which was all locked in place. It was reduced and stable. The wound again was copiously irrigated with the high-speed route salesperson and then was then closed using #2 Vicryl for the anterior fibers of the abductor muscle, #2 Vicryl for the iliotibial band, 0 Vicryl for the fat and subcutaneous tissue, and the skin was closed with skin lisette. Sterile dressing was applied. The patient was then placed in the supine position. She was awakened, extubated, and transferred to recovery room in stable condition. ESTIMATED BLOOD LOSS: 200 mL. COMPLICATIONS: None. Job ID: [id number]
[2019-11-03] MEDS ORDERED: Sodium Chloride 0.9% 500 ML IV SCH ×2 (20:30→21:45)
--- NOTE | 2019-11-03 21:03 | PDOC.EVN ---
Event Note - Event Note Event Note: Nurse called. Patient hyptensive, SBP 70s, with normal temp, HR, RR. Neuro baseline. Gave 500mls NS bolus. SBP 80s. Will give another 500ml bolus. patient not drinking s/p hip sx. No PMH HF. will start NS 50mls/hr.
[2019-11-03] MEDS: Enoxaparin Sodium 40 MG/0.4 ML SYRINGE SC SCH (21:11)
[2019-11-03] MEDS: Erythromycin Base 0.5% Oint 1 GM TUBE EA EYE SCH (21:11)
[2019-11-03] MEDS: Sodium Chloride 0.9% 1,000 ML IV SCH (21:38)
[2019-11-04] MEDS: Ondansetron ODT 4 MG TAB PO PRN (01:52)
[2019-11-04] MEDS: ALPRAZolam 0.25 MG TAB PO PRN (03:31)
[2019-11-04] MEDS ORDERED: ALPRAZolam 0.25 MG TAB PO SCH (03:45)
[2019-11-04] MEDS: Acetaminophen 500 MG TAB PO SCH ×4 (05:31→23:36)
[2019-11-04] MEDS: Ketorolac Tromethamine 30 MG/ML VIAL IVP SCH ×4 (05:31→23:35)
[2019-11-04] MEDS: Levothyroxine Sodium 25 MCG TAB PO SCH (05:32)
[2019-11-04] MEDS: Senokot S 8.6-50 MG TAB PO SCH ×2 (08:59→20:39)
[2019-11-04] MEDS: Multivitamin W/ Minerals 1 TAB PO SCH (08:59)
[2019-11-04] MEDS: Polyethylene Glycol 3350 17 GM Packet PO SCH (08:59)
[2019-11-04] MEDS: Aspirin 81 mg Enteric Coated Tablet PO SCH ×2 (09:00→11:49)
[2019-11-04] MEDS: Cyanocobalamin (Vitamin B-12) 1,000 MCG TAB PO SCH (09:00)
[2019-11-04] MEDS: Folic Acid 1 MG TAB PO SCH (09:00)
[2019-11-04] MEDS: Famotidine 20 MG TAB PO SCH ×2 (09:00→22:33)
[2019-11-04] MEDS: DorzolamidE/Timolol 2%/0.5% Ophth Soln 10 ml Bottle EA EYE SCH ×2 (09:02→20:39)
--- NOTE | 2019-11-04 09:11 | PDOC.HOSPP ---
- Subjective Encounter Date: 11/04/19 Encounter Time: 11:10 Subjective: Patient with low BP episode last night, asymptomatic, resolved with fluids. Patient without complaint this AM. Not oriented. Baseline dementia. Has had decreased appetite since first hip fracture. Spoke with daughter who states patient's depression seemed worse after fracture and bupropion was increased at that time. - Objective Vital Signs & Weight: Vital Signs (12 hours) Temp Pulse Resp BP BP Pulse Ox 11/04/19 07:13 98.6 F 98 12 111/60 93 L 11/04/19 04:00 96 20 123/61 11/04/19 03:30 98 F 96 20 123/61 96 11/04/19 00:00 88 20 90/52 L 11/03/19 23:21 97.3 F L 88 20 90/52 L 96 Weight Admit Weight 112 lb 14.4 oz Weight 114 lb 9.6 oz I&O: 11/03/19 11/04/19 11/05/19 06:59 06:59 06:59 Intake Total 1000 2073 Balance 1000 2073 Result Diagrams: 11/02/19 04:28 11/02/19 04:28 Additional Labs: Accuchecks 11/03/19 23:44 POC Glucose 154 H Hospitalist ROS - Review of Systems ROS unobtainable: due to mental status - Medication Medications: Active Medications Generic Name Dose Route Start Last Admin Trade Name Freq PRN Reason Stop Dose Admin Acetaminophen 1,000 mg 11/02/19 06:00 11/04/19 05:31 Tylenol PO 1,000 mg Q6HR [facility] Administration Alprazolam 0.25 mg 11/02/19 00:25 11/04/19 03:31 Xanax PO 0.25 mg BID PRN Administration Anxiety Aspirin 81 mg 11/02/19 09:00 11/04/19 09:00 Ecotrin PO Not Given DAILY [facility] Bupropion HCl 150 mg 11/02/19 12:00 11/03/19 13:04 Wellbutrin Xl PO 150 mg 1200 [facility] Administration Calcium Carbonate 1,000 mg 11/01/19 11:54 11/02/19 18:07 Tums PO 1,000 mg Q4H PRN Administration Heartburn or Indigestion Cyanocobalamin 1,000 mcg 11/02/19 09:00 11/04/19 09:00 Vitamin B-12 PO Not Given DAILY [facility] Dorzolamide/Timolol 1 drop 11/02/19 09:00 11/04/19 09:02 Cosopt 2-0.5% Ophth Soln EA EYE Not Given BID [facility] Enoxaparin Sodium 40 mg 11/01/19 21:00 11/03/19 21:11 Lovenox SC Not Given 2100 [facility] Erythromycin 0 gm 11/02/19 21:00 11/03/19 21:11 Erythromycin Base 0.5% Oint EA EYE Not Given HS [facility] Famotidine 20 mg 11/02/19 09:00 11/04/19 09:00 Pepcid PO Not Given BID [facility] Folic Acid 1 mg 11/02/19 09:00 11/04/19 09:00 Folvite PO Not Given DAILY [facility] Sodium Chloride 1,000 mls @ 50 mls/hr 11/03/19 21:45 11/03/19 21:38 Normal Saline 0.9% IV 1,000 mls .Q20H [facility] Administration Iron/Minerals/Multivitamins 1 tab 11/02/19 09:00 11/04/19 08:59 Theragran M PO Not Given DAILY [facility] Ketorolac Tromethamine 15 mg 11/03/19 12:00 11/04/19 05:31 Toradol IVP 11/05/19 12:01 15 mg Q6HR [facility] Administration Levothyroxine Sodium 12.5 mcg 11/02/19 06:00 11/04/19 05:32 Synthroid PO 12.5 mcg 0600 [facility] Administration Ondansetron HCl 4 mg 11/02/19 00:25 11/04/19 01:52 Zofran Odt PO 4 mg Q6H PRN Administration Nausea Polyethylene Glycol 17 gm 11/02/19 09:00 11/04/19 08:59 Miralax PO Not Given DAILY [facility] Senna/Docusate Sodium 2 tab 11/02/19 09:00 11/04/19 08:59 Senokot S PO Not Given BID [facility] Sodium Chloride 10 ml 11/01/19 11:54 11/01/19 20:29 Flush - Normal Saline IVF 10 ml PRN PRN Administration Saline Flush Tramadol HCl 100 mg 11/03/19 11:44 11/03/19 17:30 Ultram PO 100 mg Q6H PRN Administration Moderate Pain (4-6) - Exam General Appearance: NAD, awake alert ENT: moist mucosa Heart: RRR, no murmur, no gallops, no rubs Respiratory: CTAB, no wheezes, no rales, no ronchi Gastrointestinal: soft, non-tender, non-distended, normal bowel sounds Extremities: no edema Psychiatric: normal affect, not oriented Hosp A/P (1) Fracture of right hip Code(s): S72.001A - FRACTURE OF UNSP PART OF NECK OF RIGHT FEMUR, INIT Status : Acute Qualifiers: Encounter type: subsequent encounter Fracture type: closed (2) HTN (hypertension) Code(s): I10 - ESSENTIAL (PRIMARY) HYPERTENSION Status: Chronic Qualifiers: (3) Dyslipidemia Code(s): E78.5 - HYPERLIPIDEMIA, UNSPECIFIED Status: Chronic (4) Hypothyroidism Code(s): E03.9 - HYPOTHYROIDISM, UNSPECIFIED Status: Chronic Qualifiers: Hypothyroidism type: unspecified Qualified Code(s): E03.9 - Hypothyroidism , unspecified (5) Depression Code(s): F32.9 - MAJOR DEPRESSIVE DISORDER, SINGLE EPISODE, UNSPECIFIED Status : Chronic Qualifiers: Depression Type: major depressive disorder - Plan echo shows normal ef with no major valvular issues s/p right hip total arthroplasty on 11/[address] Vidal post op doing well, drinking some fluids but low BP overnight so started on IV fluids encourage po food intake Bupropion can decrease appetite. Spoke with daughter and will taper Bupropion over this week and then start Mirtazapine. continue current meds will likely need skilled placement post discharge plan
[2019-11-04] MEDS: Bupropion 150 MG XL TAB PO SCH (11:49)
--- NOTE | 2019-11-04 14:47 | PDOC.CPN ---
- Subjective Date: 11/04/19 Time: 14:48 Interval history: The pt seen and examined. No cardiac complaints. Her BP last night went down to 80s. Her BP has been stable after 100ml NS bolus. - Objective Allergies/Adverse Reactions: Allergies Allergy/AdvReac Type Severity Reaction Status Date / Time Penicillins Allergy Verified 11/01/19 14:29 pneumococcal vaccine Allergy Verified 11/01/19 14:29 Visit Medications: Current Medications Acetaminophen (Tylenol) 1,000 mg PO Q6HR [facility] Last Admin: 11/04/19 11:49 Dose: 1,000 mg Alprazolam (Xanax) 0.25 mg PO BID PRN PRN Reason: Anxiety Last Admin: 11/04/19 03:31 Dose: 0.25 mg Aspirin (Ecotrin) 81 mg PO DAILY [facility] Last Admin: 11/04/19 11:49 Dose: 81 mg Bupropion HCl (Wellbutrin Xl) 150 mg PO 1200 [facility] Last Admin: 11/04/19 11:49 Dose: 150 mg Calcium Carbonate (Tums) 1,000 mg PO Q4H PRN PRN Reason: Heartburn or Indigestion Last Admin: 11/02/19 18:07 Dose: 1,000 mg Clonidine (Catapres) 0.1 mg PO Q4H PRN PRN Reason: SBP Greater Than 180 Cyanocobalamin (Vitamin B-12) 1,000 mcg PO DAILY [facility] Last Admin: 11/04/19 09:00 Dose: Not Given Dorzolamide/Timolol (Cosopt 2-0.5% Ophth Soln) 1 drop EA EYE BID [facility] Last Admin: 11/04/19 09:02 Dose: Not Given Enoxaparin Sodium (Lovenox) 40 mg SC 2100 [facility] Last Admin: 11/03/19 21:11 Dose: Not Given Erythromycin (Erythromycin Base 0.5% Oint) 0 gm EA EYE HS [facility] Last Admin: 11/03/19 21:11 Dose: Not Given Famotidine (Pepcid) 20 mg PO BID [facility] Last Admin: 11/04/19 09:00 Dose: Not Given Folic Acid (Folvite) 1 mg PO DAILY [facility] Last Admin: 11/04/19 09:00 Dose: Not Given Sodium Chloride (Normal Saline 0.9%) 1,000 mls @ 50 mls/hr IV .Q20H [facility] Last Admin: 11/03/19 21:38 Dose: 1,000 mls Iron/Minerals/Multivitamins (Theragran M) 1 tab PO DAILY [facility] Last Admin: 11/04/19 08:59 Dose: Not Given Ketorolac Tromethamine (Toradol) 15 mg IVP Q6HR [facility] Stop: 11/05/19 12:01 Last Admin: 11/04/19 11:49 Dose: 15 mg Levothyroxine Sodium (Synthroid) 12.5 mcg PO 0600 [facility] Last Admin: 11/04/19 05:32 Dose: 12.5 mcg Morphine Sulfate (Morphine) 2 mg SLOW IVP Q2H PRN PRN Reason: Mild Pain (1-3) Morphine Sulfate (Morphine) 4 mg SLOW IVP Q2H PRN PRN Reason: Moderate Pain (4-6) Nitroglycerin (Nitrostat) 0.4 mg PO Q5MIN PRN PRN Reason: Chest Pain Ondansetron HCl (Zofran Odt) 4 mg PO Q6H PRN PRN Reason: Nausea Last Admin: 11/04/19 01:52 Dose: 4 mg Dexamethasone/Pf [ Dexycu 9% Vial] 1 Drop 0 each EA EYE DAILY [facility] Tacrolimus-Pf 1 Drop 0 each EA EYE TID [facility] Polyethylene Glycol (Miralax) 17 gm PO DAILY [facility] Last Admin: 11/04/19 08:59 Dose: Not Given Senna/Docusate Sodium (Senokot S) 2 tab PO BID PRN PRN Reason: Constipation Senna/Docusate Sodium (Senokot S) 2 tab PO BID [facility] Last Admin: 11/04/19 08:59 Dose: Not Given Simethicone (Mylicon Chewable) 80 mg PO QIDPRN PRN PRN Reason: Gas Pain Sodium Chloride (Flush - Normal Saline) 10 ml IVF PRN PRN PRN Reason: Saline Flush Last Admin: 11/01/19 20:29 Dose: 10 ml Sodium Chloride (Flush - Normal Saline) 10 ml IVF PRN PRN PRN Reason: Saline Flush Sodium Chloride (Flush - Normal Saline) 10 ml IVF PRN PRN PRN Reason: Saline Flush Tramadol HCl (Ultram) 100 mg PO Q6H PRN PRN Reason: Moderate Pain (4-6) Last Admin: 11/03/19 17:30 Dose: 100 mg Vital Signs & Weight: Vital Signs Temp Pulse Resp BP BP Pulse Ox 11/04/19 11:42 98.0 F 105 H 16 119/61 96 11/04/19 07:13 98.6 F 98 12 111/60 93 L 11/04/19 04:00 96 20 123/61 11/04/19 03:30 98 F 96 20 123/61 96 Admit Weight 112 lb 14.4 oz Weight 114 lb 9.6 oz - Physical Exam General: other (confused) HEENT: mucus membranes moist Cardiac: regular rhythm, S1/S2 Lungs: decreased breath sounds Extremities: no edema - Labs Result Diagrams: 11/02/19 04:28 11/02/19 04:28 Troponin/CKMB CK-MB (CK-2) 3.0 ng/mL (0-6.6) 11/01/19 07:58 Troponin I 0.067 ng/mL (< 0.028) H 11/01/19 13:43 - Assessment/Plan Assessment/Plan: 1. Rt femoral neck fx with dislocation with s/p Rt hip replacement on 11/03/2019 2. HTN - s/p 100ml NS bolus last night for hypotension; SBP has been >100s 3. HLD - she has hx of HLD; however, according her home med list, she is not on any statin 4. Hypothyroidism 5. Dementia MAR reviewed * Echo on 11/01/2019 with EF 55-60%, grade I dd, trace TR I agree with the A/P by the CIRC[employer] KNITTER HELPER. She is stable from a cardiac standpoint. I will sign off. if any cardiac issues please consult me again. Thank you. tory
--- NOTE | 2019-11-04 15:49 | PRG ---
DATE OF SERVICE: 11/04/2019 SUBJECTIVE: The patient is 1 day status post bipolar prosthesis of the right hip. Nurses report that the patient is doing fairly well. She did have an episode of hypotension, and this was improved with a bolus of fluids through the IV. This afternoon, the patient is talkative, but still somewhat confused. Her last vital signs; temperature 98, pulse 105, respiratory rate 16, blood pressure 119/61, and O2 saturation 96 on room air. There are no laboratories today. PHYSICAL EXAMINATION: The right lower extremity is neurovascularly intact. The patient is able to move her toes and her ankle well on the right lower extremity. PLAN: The patient will start with Physical and Occupational Therapy to work with the patient to get out of bed. She can fully weightbear on the right lower extremity. We will obtain a hemoglobin and hematocrit for tomorrow morning. Post hospitalization, the patient will probably be best suited in a [facility] facility or a swing bed. Job ID: [id number]
[2019-11-04] MEDS: Sodium Chloride 0.9% 1,000 ML IV SCH (16:57)
[2019-11-04] MEDS ORDERED: Lorazepam 2 MG/ML VIAL SLOW IVP SCH (19:15)
[2019-11-04] MEDS: Enoxaparin Sodium 40 MG/0.4 ML SYRINGE SC SCH (20:35)
[2019-11-04] MEDS: Erythromycin Base 0.5% Oint 1 GM TUBE EA EYE SCH (20:39)
[2019-11-05 06:14] LABS: Hemoglobin 10.9 g/dL (12.0-16.0)
[2019-11-05] MEDS: Acetaminophen 500 MG TAB PO SCH ×4 (06:25→23:28)
[2019-11-05] MEDS: Levothyroxine Sodium 25 MCG TAB PO SCH (06:25)
[2019-11-05] MEDS: Ketorolac Tromethamine 30 MG/ML VIAL IVP SCH ×2 (06:25→12:04)
--- NOTE | 2019-11-05 07:58 | PDOC.HOSPP ---
- Subjective Encounter Date: 11/05/19 Encounter Time: 11:30 Subjective: Patient more interactive and cooperative today. States she feels cold but that is chronic per daughter at the bedside. No other complaints. Arranging SNF placement. - Objective Vital Signs & Weight: Vital Signs (12 hours) Temp Pulse Resp BP BP Pulse Ox 11/05/19 04:10 98.9 F 94 18 122/61 97 11/05/19 04:00 94 18 122/61 11/05/19 00:00 97 20 126/70 11/04/19 23:39 98.7 F 97 20 126/70 93 L 11/04/19 20:00 98.1 F 94 20 137/70 94 L Weight Admit Weight 112 lb 14.4 oz Weight 114 lb 9.6 oz I&O: 11/04/19 11/05/19 11/06/19 06:59 06:59 06:59 Intake Total 2072 1915 Balance 2072 1915 Result Diagrams: 11/05/19 05:30 11/02/19 04:28 Hospitalist ROS - Review of Systems Constitutional: denies: fever, chills Respiratory: denies: cough, shortness of breath Cardiovascular: denies: chest pain, palpitations Gastrointestinal: denies: nausea, vomiting - Medication Medications: Active Medications Generic Name Dose Route Start Last Admin Trade Name Freq PRN Reason Stop Dose Admin Acetaminophen 1,000 mg 11/02/19 06:00 11/05/19 06:25 Tylenol PO 1,000 mg Q6HR [facility] Administration Alprazolam 0.25 mg 11/02/19 00:25 11/04/19 03:31 Xanax PO 0.25 mg BID PRN Administration Anxiety Aspirin 81 mg 11/02/19 09:00 11/04/19 11:49 Ecotrin PO 81 mg DAILY [facility] Administration Calcium Carbonate 1,000 mg 11/01/19 11:54 11/02/19 18:07 Tums PO 1,000 mg Q4H PRN Administration Heartburn or Indigestion Cyanocobalamin 1,000 mcg 11/02/19 09:00 11/04/19 09:00 Vitamin B-12 PO Not Given DAILY [facility] Dorzolamide/Timolol 1 drop 11/02/19 09:00 11/04/19 20:39 Cosopt 2-0.5% Ophth Soln EA EYE Not Given BID [facility] Enoxaparin Sodium 40 mg 11/01/19 21:00 11/04/19 20:35 Lovenox SC 40 mg 2100 [facility] Administration Erythromycin 0 gm 11/02/19 21:00 11/04/19 20:39 Erythromycin Base 0.5% Oint EA EYE Not Given HS [facility] Famotidine 20 mg 11/02/19 09:00 11/04/19 22:33 Pepcid PO Not Given BID [facility] Folic Acid 1 mg 11/02/19 09:00 11/04/19 09:00 Folvite PO Not Given DAILY [facility] Sodium Chloride 1,000 mls @ 50 mls/hr 11/03/19 21:45 11/04/19 16:57 Normal Saline 0.9% IV 1,000 mls .Q20H [facility] Administration Iron/Minerals/Multivitamins 1 tab 11/02/19 09:00 11/04/19 08:59 Theragran M PO Not Given DAILY [facility] Ketorolac Tromethamine 15 mg 11/03/19 12:00 11/05/19 06:25 Toradol IVP 11/05/19 12:01 15 mg Q6HR [facility] Administration Levothyroxine Sodium 12.5 mcg 11/02/19 06:00 11/05/19 06:25 Synthroid PO 12.5 mcg 0600 [facility] Administration Ondansetron HCl 4 mg 11/02/19 00:25 11/04/19 01:52 Zofran Odt PO 4 mg Q6H PRN Administration Nausea Polyethylene Glycol 17 gm 11/02/19 09:00 11/04/19 08:59 Miralax PO Not Given DAILY [facility] Senna/Docusate Sodium 2 tab 11/02/19 09:00 11/04/19 20:39 Senokot S PO Not Given BID [facility] Sodium Chloride 10 ml 11/01/19 11:54 11/01/19 20:29 Flush - Normal Saline IVF 10 ml PRN PRN Administration Saline Flush Tramadol HCl 100 mg 11/03/19 11:44 11/03/19 17:30 Ultram PO 100 mg Q6H PRN Administration Moderate Pain (4-6) - Exam General Appearance: NAD, awake alert ENT: moist mucosa Heart: RRR, no murmur, no gallops, no rubs Respiratory: CTAB, no wheezes, no rales, no ronchi Gastrointestinal: soft, non-tender, non-distended, normal bowel sounds Psychiatric: normal affect, normal behavior Hosp A/P (1) Fracture of right hip Code(s): S72.001A - FRACTURE OF UNSP PART OF NECK OF RIGHT FEMUR, INIT Status : Acute Qualifiers: Encounter type: subsequent encounter Fracture type: closed (2) HTN (hypertension) Code(s): I10 - ESSENTIAL (PRIMARY) HYPERTENSION Status: Chronic Qualifiers: (3) Dyslipidemia Code(s): E78.5 - HYPERLIPIDEMIA, UNSPECIFIED Status: Chronic (4) Hypothyroidism Code(s): E03.9 - HYPOTHYROIDISM, UNSPECIFIED Status: Chronic Qualifiers: Hypothyroidism type: unspecified Qualified Code(s): E03.9 - Hypothyroidism , unspecified (5) Depression Code(s): F32.9 - MAJOR DEPRESSIVE DISORDER, SINGLE EPISODE, UNSPECIFIED Status : Chronic Qualifiers: Depression Type: major depressive disorder - Plan echo shows normal ef with no major valvular issues s/p right hip total arthroplasty on 11/[address] Vidal post op doing well, drinking some fluids but low BP overnight so started on IV fluids encourage po food intake Bupropion can decrease appetite. Spoke with daughter and will taper Bupropion over this week and then start Mirtazapine. continue current meds arranging SNF placement
[2019-11-05] MEDS: ALPRAZolam 0.25 MG TAB PO PRN (08:32)
[2019-11-05] MEDS: Senokot S 8.6-50 MG TAB PO SCH ×2 (08:32→20:43)
[2019-11-05] MEDS: Aspirin 81 mg Enteric Coated Tablet PO SCH (08:33)
[2019-11-05] MEDS: DorzolamidE/Timolol 2%/0.5% Ophth Soln 10 ml Bottle EA EYE SCH ×2 (08:33→20:40)
[2019-11-05] MEDS: Polyethylene Glycol 3350 17 GM Packet PO SCH (08:33)
[2019-11-05] MEDS: Bupropion 100 MG SR TAB PO SCH (08:33)
[2019-11-05] MEDS: Folic Acid 1 MG TAB PO SCH (08:33)
[2019-11-05] MEDS: Multivitamin W/ Minerals 1 TAB PO SCH (08:33)
[2019-11-05] MEDS: Famotidine 20 MG TAB PO SCH (08:33)
[2019-11-05] MEDS: Cyanocobalamin (Vitamin B-12) 1,000 MCG TAB PO SCH (08:33)
[2019-11-05] MEDS ORDERED: Simethicone Chewable 80 MG TAB PO PRN (10:03)
[2019-11-05] MEDS: Simethicone Chewable 80 MG TAB PO PRN ×2 (10:10→20:43)
[2019-11-05] MEDS: Calcium Carbonate 500 MG ChewTAB PO PRN ×2 (10:11→14:24)
[2019-11-05] MEDS: Sodium Chloride 0.9% 1,000 ML IV SCH (14:24)
[2019-11-05] MEDS: TACROLIMUS EA EYE SCH ×3 (18:56→20:41)
[2019-11-05] MEDS: DEXAMETHASONE EA EYE SCH (18:56)
[2019-11-05] MEDS: Erythromycin Base 0.5% Oint 1 GM TUBE EA EYE SCH (20:42)
[2019-11-05] MEDS: ALPRAZolam 0.25 MG TAB PO SCH (20:43)
[2019-11-05] MEDS: Enoxaparin Sodium 40 MG/0.4 ML SYRINGE SC SCH (20:43)
[2019-11-05] MEDS: traMADol HCl 50 MG TAB PO PRN (23:30)
[2019-11-06] MEDS: Ondansetron ODT 4 MG TAB PO PRN ×2 (00:36→08:23)
[2019-11-06] MEDS: Calcium Carbonate 500 MG ChewTAB PO PRN (01:59)
[2019-11-06] MEDS: Simethicone Chewable 80 MG TAB PO PRN ×2 (03:20→08:23)
[2019-11-06] MEDS: Levothyroxine Sodium 25 MCG TAB PO SCH (05:03)
[2019-11-06] MEDS: Acetaminophen 500 MG TAB PO SCH ×2 (05:04→12:40)
[2019-11-06 08:23] VITALS: TEMP 97.9
[2019-11-06] MEDS: ALPRAZolam 0.25 MG TAB PO SCH (08:24)
[2019-11-06] MEDS: TACROLIMUS EA EYE SCH (08:27)
--- NOTE | 2019-11-06 08:43 | PDOC.HOSPP ---
- Subjective Encounter Date: 11/06/19 Encounter Time: 10:30 Subjective: Patient up ambulating with nurse. Some aching in right hip and butt but moving well. Had nausea yesterday but very hungry this morning. - Objective Vital Signs & Weight: Vital Signs (12 hours) Temp Pulse Resp BP Pulse Ox 11/06/19 07:23 97.9 F 87 16 118/65 95 11/06/19 03:37 98.2 F 74 16 146/76 H 95 11/05/19 23:55 97.4 F L 98 17 138/78 97 Weight Admit Weight 112 lb 14.4 oz Weight 114 lb 9.6 oz I&O: 11/05/19 11/06/19 11/07/19 06:59 06:59 06:59 Intake Total 1915 1500 Balance 1915 1500 Result Diagrams: 11/05/19 05:30 11/02/19 04:28 Hospitalist ROS - Review of Systems ROS unobtainable: due to mental status - Medication Medications: Active Medications Generic Name Dose Route Start Last Admin Trade Name Luly PRN Reason Stop Dose Admin Acetaminophen 1,000 mg 11/02/19 06:00 11/06/19 05:04 Tylenol PO 1,000 mg Q6HR BELIA Administration Alprazolam 0.25 mg 11/05/19 21:00 11/06/19 08:24 Xanax PO 0.25 mg BID BELIA Administration Aspirin 81 mg 11/02/19 09:00 11/05/19 08:33 Ecotrin PO 81 mg DAILY BELIA Administration Bupropion HCl 100 mg 11/05/19 09:00 11/05/19 08:33 Wellbutrin Sr PO 11/06/19 23:59 100 mg DAILY BELIA Administration Calcium Carbonate 1,000 mg 11/01/19 11:54 11/06/19 01:59 Tums PO 1,000 mg Q4H PRN Administration Heartburn or Indigestion Cyanocobalamin 1,000 mcg 11/02/19 09:00 11/05/19 08:33 Vitamin B-12 PO 1,000 mcg DAILY BELIA Administration Dorzolamide/Timolol 1 drop 11/02/19 09:00 11/05/19 20:40 Cosopt 2-0.5% Ophth Soln EA EYE 1 drop BID BELIA Administration Enoxaparin Sodium 40 mg 11/01/19 21:00 07/14/20 20:43 Lovenox SC 40 mg 2100 BELIA Administration Erythromycin 0 gm 11/02/19 21:00 11/05/19 20:42 Erythromycin Base 0.5% Oint EA EYE 1 applic HS BELIA Administration Folic Acid 1 mg 11/02/19 09:00 11/05/19 08:33 Folvite PO 1 mg DAILY BELIA Administration Iron/Minerals/Multivitamins 1 tab 11/02/19 09:00 11/05/19 08:33 Theragran M PO 1 tab DAILY BELIA Administration Levothyroxine Sodium 12.5 mcg 11/02/19 06:00 11/06/19 05:03 Synthroid PO 12.5 mcg 0600 BELIA Administration Morphine Sulfate 2 mg 11/03/19 11:44 11/05/19 21:46 Morphine SLOW IVP 2 mg Q2H PRN Administration Mild Pain (1-3) Morphine Sulfate 4 mg 11/03/19 11:44 11/06/19 01:23 Morphine SLOW IVP 4 mg Q2H PRN Administration Moderate Pain (4-6) Ondansetron HCl 4 mg 11/02/19 00:25 11/06/19 08:23 Zofran Odt PO 4 mg Q6H PRN Administration Nausea Pantoprazole Sodium 40 mg 11/05/19 09:00 11/06/19 08:23 Protonix PO 40 mg DAILY BELIA Administration Tacrolimus-Pf 0.02% 0 each 11/05/19 21:00 11/06/19 08:27 Drop EA EYE 1 each TID BELIA Administration Dexamethasone/Pf 0.1 0 each 11/06/19 09:00 11/06/19 08:27 % Drop EA EYE 1 each DAILY BELIA Administration Polyethylene Glycol 17 gm 11/02/19 09:00 11/05/19 08:33 Miralax PO 17 gm DAILY BELIA Administration Senna/Docusate Sodium 2 tab 11/02/19 09:00 11/05/19 20:43 Senokot S PO 2 tab BID BELIA Administration Simethicone 80 mg 11/02/19 00:25 11/06/19 08:23 Mylicon Chewable PO 80 mg QIDPRN PRN Administration Gas Pain Sodium Chloride 10 ml 11/01/19 11:54 11/01/19 20:29 Flush - Normal Saline IVF 10 ml PRN PRN Administration Saline Flush Tramadol HCl 100 mg 11/03/19 11:44 11/05/19 23:30 Ultram PO 100 mg Q6H PRN Administration Moderate Pain (4-6) - Exam General Appearance: NAD, awake alert ENT: moist mucosa Heart: RRR, no murmur, no gallops, no rubs Respiratory: CTAB, no wheezes, no rales, no ronchi Gastrointestinal: soft, non-tender, non-distended, normal bowel sounds Psychiatric: normal affect, normal behavior Hosp A/P (1) Fracture of right hip Code(s): S72.001A - FRACTURE OF UNSP PART OF NECK OF RIGHT FEMUR, INIT Status : Acute Qualifiers: Encounter type: subsequent encounter Fracture type: closed (2) HTN (hypertension) Code(s): I10 - ESSENTIAL (PRIMARY) HYPERTENSION Status: Chronic Qualifiers: (3) Dyslipidemia Code(s): E78.5 - HYPERLIPIDEMIA, UNSPECIFIED Status: Chronic (4) Hypothyroidism Code(s): E03.9 - HYPOTHYROIDISM, UNSPECIFIED Status: Chronic Qualifiers: Hypothyroidism type: unspecified Qualified Code(s): E03.9 - Hypothyroidism , unspecified (5) Depression Code(s): F32.9 - MAJOR DEPRESSIVE DISORDER, SINGLE EPISODE, UNSPECIFIED Status : Chronic Qualifiers: Depression Type: major depressive disorder (6) Dementia Code(s): F03.90 - UNSPECIFIED DEMENTIA WITHOUT BEHAVIORAL DISTURBANCE Status: Chronic Qualifiers: Dementia type: unspecified type Dementia behavioral disturbance: with behavioral disturbance Qualified Code(s): F03.91 - Unspecified dementia with behavioral disturbance - Plan echo shows normal ef with no major valvular issues s/p right hip total arthroplasty on 11/[address] Vidal Improving po intake and fluids so can stop IV fluids Bupropion can decrease appetite. Spoke with daughter and will taper Bupropion over this week and then start Mirtazapine. continue current meds d/c to SNF today
[2019-11-06] MEDS ORDERED: DEXAMETHASONE EA EYE SCH (09:00)
[2019-11-06] MEDS ORDERED: DEXAMETHASONE 0.1% EA EYE SCH (09:00)
[2019-11-06] MEDS: Senokot S 8.6-50 MG TAB PO SCH (11:13)
[2019-11-06] MEDS: Polyethylene Glycol 3350 17 GM Packet PO SCH (11:13)
[2019-11-06] MEDS: DorzolamidE/Timolol 2%/0.5% Ophth Soln 10 ml Bottle EA EYE SCH (11:13)
[2019-11-06] MEDS: Cyanocobalamin (Vitamin B-12) 1,000 MCG TAB PO SCH (11:13)
[2019-11-06] MEDS: Folic Acid 1 MG TAB PO SCH (11:13)
[2019-11-06] MEDS: Aspirin 81 mg Enteric Coated Tablet PO SCH (11:13)
[2019-11-06] MEDS: Multivitamin W/ Minerals 1 TAB PO SCH (11:13)
[2019-11-06] MEDS: Bupropion 100 MG SR TAB PO SCH (11:14)
[2019-11-06 12:34] VITALS: BP 144/76
--- NOTE | 2019-11-06 16:49 | DIS ---
DATE OF ADMISSION: 11/01/2019 DATE OF DISCHARGE: 11/06/2019 PRIMARY CARE PHYSICIAN: Dr. Mix. REASON FOR ADMISSION: Right femoral neck fracture and chest pain. DIAGNOSES AT DISCHARGE: 1. Right femoral neck fracture, status post hip replacement. 2. Hypertension. 3. Hyperlipidemia. 4. Hypothyroidism. 5. Depression and anxiety. 6. Dementia. PROCEDURES: 1. CT of abdomen and pelvis with contrast showing no acute intraabdominal process, just distended bladder, and three screws in the right femoral neck seen from recent surgery, now with a subcapital fracture on the right with displacement of the femoral head, which is no longer transfixed in anatomic alignment. 2. CTA of the chest and thorax showing no pulmonary thromboembolism, but significantly displaced subcapital right proximal femoral fracture. 3. Echocardiogram showing ejection fraction of 55% to 60% with diastolic dysfunction. 4. Total right hip arthroplasty with removal of old screws and equipment. CONSULTATIONS: 1. Cardiology, Dr. Braun. 2. Orthopedics, Dr. Vidal. SUMMARY OF HOSPITAL COURSE: This is an 83-year-old female with history of dementia, who had a hip fracture in August of this year, repaired with three cannulated screws. She presented to the emergency room with right hip pain and some chest pain. She had imaging done as above. She did have a mildly elevated troponin. Dr. Vidal and Dr. Braun were consulted. Dr. Braun recommended echocardiogram, and has normal ejection fraction, cleared the patient for surgery. Dr. Vidal did take the patient back for the total right hip replacement. The patient did well postoperatively except for some poor p.o. intake. According to the daughter, the patient has not been eating well at all since her hip fracture at home either. This has been impairing her recovery. The daughter did note the patient had increase in her anxiety and depression after the hip fracture, so her Wellbutrin was increased. It was thought that possibly the Wellbutrin was causing a drop in appetite, so we are titrating that off and then we will start her on Remeron. The patient did have some increased p.o. intake by the end of the hospitalization, when she was taking poor p.o., she did have some drops in blood pressure and had to be given IV fluids; however, that has resolved and her IV fluids have been discontinued, and she has been accepted to a [facility] facility and she is being discharged today. DISCHARGE MANAGEMENT: Discharged to [facility] facility. ACTIVITY: As tolerated. DIET: Regular diet. THERAPY: Occupational and physical therapy. MEDICATIONS: 1. Acetaminophen as needed for pain and fever. 2. Alprazolam 0.25 mg twice a day. 3. Aspirin 81 mg daily. 4. Calcium carbonate as needed. 5. Clonidine 0.1 mg every 4 hours as needed. 6. Vitamin B12, 1000 mcg daily. 7. Dorzolamide/timolol ophthalmic one drop in each eye twice a day. 8. Folic acid 1 mg daily. 9. Levothyroxine 12.5 mcg daily. 10. Mirtazapine 15 mg at night starting tomorrow. Her last day of lower dose bupropion was today. 11. Multivitamin daily. 12. Zofran as needed. 13. Protonix 40 mg daily. 14. MiraLAX 17 g daily. 15. Sennoside/docusate two tablets twice a day as needed. 16. Simethicone 80 mg with meals and at night. 17. Tramadol as needed for pain. 18. Artificial Tears as needed. 19. Hydrocodone as needed. 20. Refresh Classic eyedrops as needed. 21. Tacrolimus one drop in each eye three times a day. FOLLOWUP: The patient is to follow up with her doctor at the [facility] facility. TIME SPENT: Arranging the details of this discharge took 35 minutes. Job ID: [id number]
[2019-11-08] MEDS ORDERED: Bupropion 100 MG SR TAB PO SCH ×2 (09:00→16:30)
[2019-11-10] MEDS ORDERED: Mirtazapine 15 MG TAB PO SCH (21:00)
== END 2019-11-06 14:11 | DRG 466 ==
LOC: ERS 07:39 → 2NO 13:24 → OBSVTOIN 13:24 → SURG A 11-03 12:55
PROVIDERS: ADMIT Internal Medicine; ATTEND Internal Medicine
PROC: 0SR90JZ Replacement of Right Hip Joint with Synthetic Substitute, Open Approach (ICD-10-PCS; principal; 2019-11-03)
PROC: 0SP90JZ Removal of Synthetic Substitute from Right Hip Joint, Open Approach (ICD-10-PCS; 2019-11-03)
DX: T84.020A Dislocation of internal right hip prosthesis, initial encounter (principal); I21.A1 Myocardial infarction type 2; E87.1 Hypo-osmolality and hyponatremia; F03.91 Unspecified dementia, unspecified severity, with behavioral disturbance; E78.5 Hyperlipidemia, unspecified; E03.9 Hypothyroidism, unspecified; F32.9 Major depressive disorder, single episode, unspecified; F41.9 Anxiety disorder, unspecified; Z20.828 Contact with and (suspected) exposure to other viral communicable diseases; E78.00 Pure hypercholesterolemia, unspecified; I12.9 Hypertensive chronic kidney disease with stage 1 through stage 4 chronic kidney disease, or unspecified chronic kidney disease; N18.2 Chronic kidney disease, stage 2 (mild); E87.6 Hypokalemia; I95.9 Hypotension, unspecified; K21.9 Gastro-esophageal reflux disease without esophagitis; Y83.8 Other surgical procedures as the cause of abnormal reaction of the patient, or of later complication, without mention of misadventure at the time of the procedure; Z96.641 Presence of right artificial hip joint; Z88.0 Allergy status to penicillin; Z88.7 Allergy status to serum and vaccine; Z90.710 Acquired absence of both cervix and uterus
CPT/HCPCS: 36415; 36416; 71275; 74177; 80048; 80053; 81003; 82553; 83690; 83735; 84484; 85014; 85018; 85025; 85379; 93005; 93306; 94760; 96372; 96374; 96376; C1776; G0378; J1650; J1885; J2060; J2270; J2370; J2704; J3010; J3480; J3490; Q0162; Q9967; U0002

== ENCOUNTER 2019-11-22 07:45 | Inpatient (IN) | payer MEDICARE ==
[2019-11-26] MEDS ORDERED: Ondansetron PF 4 MG/2 ML Vial ONE (10:48)
[2019-11-26] MEDS ORDERED: Rocuronium Bromide 10 MG/ML (10ML VIAL) ONE (10:48)
[2019-11-26] MEDS ORDERED: Dexamethasone 20 MG/5 ML VIAL ONE ×2 (10:48)
[2019-11-26] MEDS ORDERED: EPHEDRINE 25 MG/5 ML SYRINGE ONE (10:48)
[2019-11-26] MEDS ORDERED: PROPOFOL 200 MG/20 ML VIAL ONE (10:48)
[2019-11-26] MEDS ORDERED: PHENYLEPHRINE-NS 100 MCG/ML 10 ML SYRINGE ONE (10:48)
[2019-11-26] MEDS ORDERED: Glycopyrrolate 0.2 MG/ML 5 ML SYRINGE ONE (10:48)
[2019-11-26] MEDS ORDERED: Bupivacaine HCl 0.5%/Epinephrine 1:200,000/PF 30 ml Vial ONE (10:48)
[2019-11-26] MEDS ORDERED: Succinylcholine Chloride 20 MG/ML 10 ml SYRINGE FS ONE (10:48)
[2019-11-26 11:18] LABS: Hemoglobin 11.2 g/dL (12.0-16.0); Mean Corpuscular HGB CONC 31.3 g/dL (32.0-36.0); Mean Corpuscular Hemoglobin 28.1 pg (27.0-31.0); Mean Corpuscular Volume 89.7 fL (78.0-98.0); Mean Platelet Volume 9.7 fL (7.4-10.4); Platelet Count 464 thou/uL (130-400); RBC Distribution Width 16.4 % (11.5-14.5); White Blood Cell (WBC) Count 9.8 thou/uL (4.8-10.8)
[2019-11-26 11:35] LABS: Anion Gap 15 mmol/L (10-20); BUN (Urea Nitrogen) 7 mg/dL (9.8-20.1); Calc. Creatinine Clearance 64 mL/min (70-130); Calcium 8.4 mg/dL (7.8-10.44); Carbon Dioxide 23 mmol/L (23-31); Chloride 102 mmol/L (98-107); Estimated GFR-MDRD Greater than 90; Glucose 95 mg/dL (83-110); Potassium 3.2 mmol/L (3.5-5.1); Sodium 137 mmol/L (136-145)
[2019-11-26] MEDS ORDERED: Clindamycin/D5W 600 mg/50 ml Premix Bag ONE (11:38)
[2019-11-26] MEDS ORDERED: Promethazine HCl 25 MG/ML VIAL SLOW IVP PRN (12:32)
[2019-11-26] MEDS ORDERED: Ondansetron HCl/PF 4 MG/2 ML Vial IVP PRN (12:32)
[2019-11-26] MEDS ORDERED: Promethazine HCl 25 MG/ML VIAL IM PRN (12:32)
[2019-11-26] MEDS ORDERED: Fentanyl 100 MCG/2 ML VIAL ONE ×2 (13:27→14:05)
--- NOTE | 2019-11-26 13:47 | RAD ---
TWO VIEWS OF THE RIGHT HIP: 11/26/19 HISTORY: ORIF FINDINGS: There are cutaneous lisette seen laterally. Postoperative gas is noted lateral to and superior to th e right hip. There is a hip prosthesis on the right with no evidence for hardware failure. IMPRESSION: Radiographic evidence of recent right hip arthroplasty. POS: AH
[2019-11-26] MEDS ORDERED: cloNIDine 0.1 MG TAB PO PRN (13:54)
[2019-11-26] MEDS ORDERED: Nitroglycerin 0.4 MG TAB (25 Tab Bottle) SL PRN (13:54)
[2019-11-26] MEDS ORDERED: Simethicone Chewable 80 MG TAB PO PRN (13:54)
[2019-11-26] MEDS ORDERED: traMADol HCl 50 MG TAB PO PRN (13:54)
[2019-11-26] MEDS ORDERED: Temazepam 15 MG CAP PO PRN (13:54)
[2019-11-26] MEDS ORDERED: Ondansetron ODT 4 MG TAB PO PRN (13:54)
[2019-11-26] MEDS ORDERED: Morphine 2 MG/ML VIAL SLOW IVP PRN (13:58)
[2019-11-26] MEDS ORDERED: Morphine 4 MG/ML VIAL SLOW IVP PRN (13:58)
[2019-11-26] MEDS ORDERED: Dexamethasone 4 mg/ml Vial ONE (14:15)
--- NOTE | 2019-11-26 14:50 | OP ---
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 PROCEDURE PERFORMED: Right total hip replacement using a DonJoy constrained hip. ANESTHESIA: General. TECHNIQUE: The patient was taken to the operating room, placed in the supine position. Satisfactory general anesthesia was performed. Attempts were made at closed reduction of the bipolar prosthesis. It was unsuccessful. The patient was then given preoperative IV antibiotics. She was placed in the left lateral decubitus position on a dupree bag. All bony prominences well padded, and the right hip and lower extremity were sterilely prepped and draped in usual fashion. A longitudinal incision was made centered over the greater trochanter. Sharp dissection was made down through the iliotibial band. Anterolateral approach was made to the hip joint. The hip was dislocated superiorly. It was externally rotated and the bipolar portion of the prosthesis was removed. The soft tissue was released. Soft tissue in the acetabulum was removed with a rongeur and then it was sequentially reamed up to 47 mm. The acetabulum was then copiously irrigated with antibiotic solution using the high-speed junior accountant bookkeeper. The bone graft that was obtained from the reaming was placed into the acetabulum and a DonJoy 2-hole cluster hemispherical shell that was 48 mm in diameter and porous coating was impacted into the acetabulum in the appropriate anteversion and abduction. Additional stability was brought into the shell using a 6.5 screw. The constrained acetabular liner was then locked into the shell. The hip prosthesis was then trialed initially at a -3.5 neck and then neutral neck and then up to +3.5, which provided good stability to the hip. The final component was a constrained acetabular liner with a constrained liner locking ring and a 28 mm femoral head that was +3.5 neck on the already inserted femoral stem. Hip was placed through a range of motion and was very stable. X-rays were obtained intraoperatively and showed good position of the total hip replacement and good stability. The wound again was copiously irrigated with antibiotic solution using the high-speed junior accountant bookkeeper and the wound was closed using #2 Vicryl for the anterior abductors muscles, #2 Vicryl for the iliotibial band, 0 Vicryl for the fat and subcutaneous tissue, and skin was closed with skin lisette. Sterile dressing was applied. The patient was awakened, extubated, and transferred to recovery room in stable condition. ESTIMATED BLOOD LOSS: 250 mL. COMPLICATIONS: None. Job ID: [id number]
[2019-11-26 16:27] VITALS: BMI 20.3
[2019-11-26] MEDS: Acetaminophen 500 MG TAB PO SCH (17:11)
[2019-11-26] MEDS: Clindamycin/D5W 900 MG in Premix Bag 1 BAG IVPB SCH (17:11)
[2019-11-26] MEDS: Sodium Chloride 0.9% 1,000 ML IV SCH (17:12)
[2019-11-26] MEDS: DorzolamidE/Timolol 2%/0.5% Ophth Soln 10 ml Bottle EA EYE SCH (20:02)
[2019-11-26] MEDS: Senokot S 8.6-50 MG TAB PO SCH ×2 (20:02→20:04)
[2019-11-26] MEDS: ALPRAZolam 0.25 MG TAB PO SCH (20:02)
[2019-11-26] MEDS: HYDROcodone/Acetaminophen 5/325 mg Tablet PO PRN (22:19)
[2019-11-27] MEDS: Acetaminophen 500 MG TAB PO SCH ×4 (00:12→17:28)
[2019-11-27] MEDS: Clindamycin/D5W 900 MG in Premix Bag 1 BAG IVPB SCH (00:12)
[2019-11-27] MEDS: Sodium Chloride 0.9% 1,000 ML IV SCH ×4 (00:13→20:16)
[2019-11-27] MEDS: Levothyroxine Sodium 25 MCG TAB PO SCH (05:17)
[2019-11-27 06:06] LABS: Hemoglobin 9.5 g/dL (12.0-16.0); Mean Corpuscular HGB CONC 30.6 g/dL (32.0-36.0); Mean Corpuscular Hemoglobin 27.1 pg (27.0-31.0); Mean Corpuscular Volume 88.3 fL (78.0-98.0); Mean Platelet Volume 10.4 fL (7.4-10.4); Platelet Count 416 thou/uL (130-400); RBC Distribution Width 16.1 % (11.5-14.5); Red Blood Cell (RBC) Count 3.51 mill/uL (4.20-5.40); White Blood Cell (WBC) Count 13.7 thou/uL (4.8-10.8)
[2019-11-27] MEDS: DorzolamidE/Timolol 2%/0.5% Ophth Soln 10 ml Bottle EA EYE SCH ×2 (08:15→20:16)
[2019-11-27] MEDS: Polyethylene Glycol 3350 17 GM Packet PO SCH (08:15)
[2019-11-27] MEDS: Aspirin 81 mg Enteric Coated Tablet PO SCH (08:15)
[2019-11-27] MEDS: Multivit, Therapeutic 1 TAB PO SCH (08:15)
[2019-11-27] MEDS: ALPRAZolam 0.25 MG TAB PO SCH ×2 (08:15→20:11)
[2019-11-27] MEDS: Folic Acid 1 MG TAB PO SCH (08:15)
[2019-11-27] MEDS: Senokot S 8.6-50 MG TAB PO SCH ×2 (08:15→20:12)
[2019-11-27] MEDS ORDERED: TIMOLOL EA EYE SCH (09:00)
[2019-11-27] MEDS ORDERED: DORZOLAMIDE EA EYE SCH (09:00)
--- NOTE | 2019-11-27 13:51 | PRG ---
DATE OF SERVICE: 11/27/2019 SUBJECTIVE: I was called last night by the patient's nurse, stating that she was very confused, she was pulling out her IV, trying to pull out her Cameron catheter, trying to get out of bed by herself. We had to get a sitter with her for her own safety. This morning, the patient had a blood pressure of 104/63, and this was treated with increased fluids. She is still very confused. OBJECTIVE: VITAL SIGNS: Temperature 98.1, pulse 65, respiratory rate 16, blood pressure 104/63, and O2 saturation 98% on room air. LABORATORY DATA: Laboratory shows hemoglobin 9.5, hematocrit 31. The patient will need to continue to have a sitter, so that she will avoid re-injuring herself. We will keep the increased fluids until her blood pressure comes up to a more normal range. Probable discharge tomorrow back to the half-way. Job ID: [id number]
[2019-11-27] MEDS: Mirtazapine 15 MG TAB PO SCH (20:15)
[2019-11-28] MEDS: Acetaminophen 500 MG TAB PO SCH ×4 (01:07→17:44)
[2019-11-28] MEDS: HYDROcodone/Acetaminophen 5/325 mg Tablet PO PRN (01:37)
[2019-11-28 05:23] LABS: Hemoglobin 7.6 g/dL (12.0-16.0); Mean Corpuscular HGB CONC 30.5 g/dL (32.0-36.0); Mean Corpuscular Hemoglobin 26.7 pg (27.0-31.0); Mean Corpuscular Volume 87.6 fL (78.0-98.0); Mean Platelet Volume 9.8 fL (7.4-10.4); Platelet Count 325 thou/uL (130-400); RBC Distribution Width 15.9 % (11.5-14.5); Red Blood Cell (RBC) Count 2.85 mill/uL (4.20-5.40); White Blood Cell (WBC) Count 9.7 thou/uL (4.8-10.8)
[2019-11-28] MEDS: Levothyroxine Sodium 25 MCG TAB PO SCH (05:41)
[2019-11-28] MEDS: Sodium Chloride 0.9% 1,000 ML IV SCH ×3 (05:41→19:31)
[2019-11-28] MEDS: Aspirin 81 mg Enteric Coated Tablet PO SCH (09:22)
[2019-11-28] MEDS: ALPRAZolam 0.25 MG TAB PO SCH ×2 (09:22→19:30)
[2019-11-28] MEDS: Folic Acid 1 MG TAB PO SCH (09:22)
[2019-11-28] MEDS: Senokot S 8.6-50 MG TAB PO SCH ×2 (09:22→19:30)
[2019-11-28] MEDS: Multivit, Therapeutic 1 TAB PO SCH (09:22)
[2019-11-28] MEDS: Polyethylene Glycol 3350 17 GM Packet PO SCH (09:22)
[2019-11-28] MEDS: DorzolamidE/Timolol 2%/0.5% Ophth Soln 10 ml Bottle EA EYE SCH ×2 (09:22→19:30)
[2019-11-28] MEDS ORDERED: Calcium Carbonate 500 MG ChewTAB PO PRN (11:47)
[2019-11-28] MEDS ORDERED: Polyvinyl Alcohol 1.4%/Povidone 0.6% Opth Drops EA EYE SCH (12:00)
[2019-11-28] MEDS ORDERED: PATIENT'S HOME MEDICATION EA EYE SCH (15:00)
[2019-11-28] MEDS: Mirtazapine 15 MG TAB PO SCH (19:30)
[2019-11-29] MEDS: Acetaminophen 500 MG TAB PO SCH ×2 (00:32→05:31)
[2019-11-29 05:19] LABS: Hemoglobin 8.4 g/dL (12.0-16.0); Mean Corpuscular HGB CONC 30.6 g/dL (32.0-36.0); Mean Corpuscular Hemoglobin 26.7 pg (27.0-31.0); Mean Corpuscular Volume 87.4 fL (78.0-98.0); Mean Platelet Volume 10.2 fL (7.4-10.4); Platelet Count 337 thou/uL (130-400); RBC Distribution Width 15.8 % (11.5-14.5); Red Blood Cell (RBC) Count 3.15 mill/uL (4.20-5.40)
[2019-11-29] MEDS: Levothyroxine Sodium 25 MCG TAB PO SCH (05:31)
[2019-11-29] MEDS: Sodium Chloride 0.9% 1,000 ML IV SCH (08:56)
[2019-11-29] MEDS: Folic Acid 1 MG TAB PO SCH (08:57)
[2019-11-29] MEDS: Aspirin 81 mg Enteric Coated Tablet PO SCH (08:57)
[2019-11-29] MEDS: Multivit, Therapeutic 1 TAB PO SCH (08:57)
[2019-11-29] MEDS: Senokot S 8.6-50 MG TAB PO SCH (08:57)
[2019-11-29] MEDS: ALPRAZolam 0.25 MG TAB PO SCH (08:57)
[2019-11-29] MEDS: DorzolamidE/Timolol 2%/0.5% Ophth Soln 10 ml Bottle EA EYE SCH (08:59)
[2019-11-29] MEDS: Polyethylene Glycol 3350 17 GM Packet PO SCH (09:00)
[2019-11-29] MEDS ORDERED: Cyanocobalamin (Vitamin B-12) 1,000 MCG TAB PO SCH (09:00)
[2019-11-29] MEDS ORDERED: DEXAMETHASONE EA EYE SCH (09:00)
[2019-11-29 11:39] VITALS: BP 123/68; TEMP 97.7
[2019-11-29] MEDS ORDERED: TACROLIMUS EA EYE SCH (15:00)
--- NOTE | 2019-11-29 16:58 | DIS ---
DATE OF ADMISSION: 11/26/2019 DATE OF DISCHARGE: 11/29/2019 HISTORY OF PRESENT ILLNESS: Please see admission history and physical. HOSPITAL COURSE: The patient was worked up medically prior to admission, found to be stable for surgery. On the day of surgery, the patient was taken to the operating room. She was given preoperative IV antibiotics. Attempts were made at closed reduction with bipolar prosthesis, which were unsuccessful. The patient required reversion of a dislocated bipolar prosthesis into a restrained right total hip replacement. She was given postoperative IV antibiotics. Unfortunately, the patient is very confused and cannot participate with physical or occupational therapy very well. Her hemoglobin prior to surgery was 11.2 and dropped to 7.6. Her vital signs remained stable. Last temperature was 98, pulse 76, respiratory rate 16, O2 saturation 95% on room air, and blood pressure 100/59. Dressing was changed. The incision was healing well. The right lower extremity was neurovascularly intact. DISCHARGE DIAGNOSES: 1. Dislocated right bipolar prosthesis, requiring restrained right total hip replacement. 2. Anemia secondary to expected blood loss from surgery. DISCHARGE MEDICATION: The patient will continue with her previous medication. Also wrote a prescription for tramadol 50 mg one every 6 hours as needed for pain #60. DISCHARGE INSTRUCTIONS: She is planning on going to a half-way facility. She will follow up in my office in 2 weeks. The patient may weightbear as tolerated on the right lower extremity, but obviously needs to stop falling. Job ID: [id number]
== END 2019-11-29 11:13 | DRG 470 ==
LOC: SURG A 11-26 09:45
PROVIDERS: ADMIT Orthopaedic Surgery; ATTEND Orthopaedic Surgery
PROC: 0SR90JZ Replacement of Right Hip Joint with Synthetic Substitute, Open Approach (ICD-10-PCS; principal; 2019-11-26)
DX: T84.020A Dislocation of internal right hip prosthesis, initial encounter (principal); D62 Acute posthemorrhagic anemia; Y83.1 Surgical operation with implant of artificial internal device as the cause of abnormal reaction of the patient, or of later complication, without mention of misadventure at the time of the procedure; Z88.0 Allergy status to penicillin
CPT/HCPCS: 36415; 36416; 80048; 85027; C1776; J0670; J1100; J2405; J2704; J3010; J3490

== ENCOUNTER 2019-11-22 10:31 | Outpatient (CLI) | payer MEDICARE, OTHER ==
[2019-11-23 14:48] LABS: SARS-CoV-2 MS2 Positive; SARS-CoV-2 N Gene Negative; SARS-CoV-2 S Gene Negative; SARS-CoV-2 by NAA Not Detected (NotDetected); SARS-CoV-2 orf1ab Negative
== END 2019-11-22 10:32 | disposition home or self-care (01) ==
LOC: LABBT 10:31
PROVIDERS: ATTEND Orthopaedic Surgery
DX: Z01.812 Encounter for preprocedural laboratory examination (principal); Z11.59 Encounter for screening for other viral diseases
CPT/HCPCS: 87635; U0003